=== PATIENT | male | born 1960 | race Caucasian/White ===

== ENCOUNTER 2024-03-07 13:03 | Outpatient (CLI) | payer MEDICARE, MEDICAID, SELFPAY | END 2024-03-07 13:04 | disposition home or self-care (01) | LOC: ANHAUDIO 13:04 | PROVIDERS: PCP Internal Medicine Infectious Disease; Visit Provider Otolaryngology | DX: H90.3 Sensorineural hearing loss, bilateral (principal) | CPT/HCPCS: 92557; 92567 ==

== ENCOUNTER 2024-08-14 13:36 | Emergency (ER) | payer MEDICARE, MEDICAID, SELFPAY ==
--- NOTE | ~2024-08-14 | US_ITS ---
EXAMINATION: US venous doppler UE RT DATE: 08/14/2024 15:49 INDICATION: Right upper limb swelling and erythema TECHNIQUE: Grayscale images without and with compression and Doppler images of the right upper extrem ity veins were obtained. COMPARISON: None. FINDINGS: The right internal jugular vein, subclavian vein, axillary vein, brachial vein, basilic vein, cephali c vein, radial vein, and ulnar vein are patent. IMPRESSION: 1. Patent right upper extremity veins. No evidence of venous thrombosis. Reviewed, dictated and finalized at location A.
[2024-08-14 13:49] VITALS: BP 119/79; PULSE 65; RESP 18; TEMP 36.4; O2SAT 99
--- OUTSIDE RECORDS SUMMARY | 2024-08-14 13:58 | XMS_ITS | CONTINUITY OF CARE DOCUMENT ---
Author Name leslie, leslie Address Unknown Organization [facility] Address [address] [place] [address] Phone [phone] Care Team Providers Care Pm Head Cook Name Role Phone Joe FLOOD, Wei Unavailable AFSANEH FLOOD, EMELYN Unavailable EMELYN SHELBY MD Unavailable [phone] PROBLEMS Condition Status Date Provider Notes SHORTNESS OF BREATH active Tanya Fullerm idt OBESITY active Tanya Stahlschmidt DVT active Tanya Staangelaschmidt CAD active Tanya Brandschmidt Hyperlipidemia active Wei Diaz MD GOUT, CHRONIC active Wei Diaz MD Family History of Hypertension: active ? Antony Diaz MD Family History of Hypertension: active ? Antony Diaz MD Edema, chronic active Wei Diaz MD Sleep apnea, obstructive active Wei rosales MD CHF, systolic, chronic active Wei Diaz MD Diabetes, Type 2 active ? Wei Diaz MD ENCOUNTERS Date Type Provider Location Encounter Diag nosis - In-person encounter Office Visit Wei Diaz MD [facility] - [facility]-person encounter Office Visit Wei Diaz MD [facility] - In-person encounter Office Visit Wei Diaz MD [facility] - In-person encounter Office Visit Wei Diaz MD [facility] - In-person encounter Office Visit Wei Diaz MD [facility] - In-person encounter Office Visit Wei Diaz MD [facility] - In-person encounter Office Visit Wei Diaz MD [facility] - In-person encounter Office Visit Wei Diaz MD [facility] In-person encounter Office Visit Wei Diaz MD [facility] - In-person encounter Office Visit Wei Diaz MD [facility] - In-person encounter Office Visit Wei Diaz MD [facility] HyperlipidemiaDiabet es, Type 2 - In-person encounter Office Visit Wei iDaz MD [facility] - In-person encounter Office Visit Wei Diaz MD [facility] - In-person encounter Office Visit Wei Diaz MD [facility] Edema, chronicSleep apnea, obstructiveCHF, systolic, chronic - In-person encounter Office Visit Wei Diaz MD [facility] Family History of Hypertension:Family History of Hypertension: - In-person encounter Office Visit Wei Diaz MD [facility] - In-person encounter Office Visit Wei Diaz MD [facility] - In-person encounter Office Visit Wei Diaz MD [facility] - In-person encounter Office Visit Wei Diaz MD [facility] - In-person encounter Office Visit Wei Diaz MD [facility] - In-person encounter Office Visit Wei Diaz MD [facility] GOUT, CHRONIC - In-person encounter Office Visit Wei Diaz MD [facility] VITAL SIGNS Date Observation Value Provider Body Mass Index (Ratio) 41.12 kg/m2 Antony Diaz MD pulse rate 73 /min Sophie [place] blood pressure, diastolic 74 mm[Hg] [facility], systolic 124 mm[Hg] Thea liz [place] oxygen saturation, oximetry 98 % [facility] weight E&M 329 [lb_av] [facility] respiratory rate E&M 16 /min [facility] height E&M 75 [in_i] [facility] blood pressure, cuff size large An hiram [place] Body Mass Index (Ratio) 40.74 kg/m2 Antony Diaz MD blood pressure, systolic 127 mm[Hg] [facility], cuff size regular Jeb [facility] blood pressure, diastolic 84 mm[Hg] Jeb [facility] pulse rate 85 /min [facility] oxygen saturation, oximetry 96 % [facility] respiratory rate E&M 14 /min Latrice Parada iller weight E&M 326 [lb_av] [facility] height E&M 75 [in_i] [facility] Body Mass Index (Ratio) 38.49 kg/m2 Tae da Ventimiglia INFORMATION MANAGEMENT SPECIALIST blood pressure, diastolic 74 mm[Hg] Li nkLogic blood pressure, systolic 124 mm[Hg] Emily kLogic blood pressure, cuff size regular Ja rret blood pressure, diastolic 74 mm[Hg] Farooq nesha blood pressure, systolic 124 mm[Hg] Javi daniels pulse rate 92 /min Jett respiratory rate E&M 12 /min oxygen saturation, oximetry 97 % weight E&M 308 [lb_av] Jett y height E&M 75 [in_i] Jett y Body Mass Index (Ratio) 41.24 kg/m2 Antony Diaz MD blood pressure, cuff size large Tr abril blood pressure, diastolic 62 mm[Hg] Tr [facility] blood pressure, systolic 117 mm[Hg] Tra [facility] oxygen saturation, oximetry 97 % [facility] pulse rate 70 /min [facility] weight E&M 330 [lb_av] [facility]&M 75 [in_i] [facility] Body Mass Index (Ratio) 43.49 kg/m2 Antony Diaz MD blood pressure, cuff size large Ke rri Gloria blood pressure, diastolic 72 mm[Hg] Ke rri Ernestouenetiki blood pressure, systolic 120 mm[Hg] Rosalio Blackman oxygen saturation, oximetry 99 % Brisa Blackman respiratory rate E&M 16 /min Brisa nguyen pulse rate 74 /min Brisa Brothers [facility] weight E&M 348 [lb_av] Brisa Brothers [facility] height E&M 75 [in_i] Brisa Drunepradeep Body Mass Index (Ratio) 53.49 kg/m2 Antony Diaz MD blood pressure, cuff size regular Julianna Finley blood pressure, diastolic 71 mm[Hg] Julianna Finley blood pressure, systolic 149 mm[Hg] Leonides Finley oxygen saturation, oximetry 98 % Azeb Finley respiratory rate E&M 18 /min Terri Finley pulse rate 82 /min Azeb aiken weight E&M 428 [lb_av] Azeb aiken height E&M 75 [in_i] Azeb aiken Body Mass Index (Ratio) 57.99 kg/m2 Antony Diaz MD blood pressure, diastolic 70 mm[Hg] Liz nkLogalexa blood pressure, systolic 142 mm[Hg] Emily kLogalexa blood pressure, cuff size regular Cy marco Rubio blood pressure, diastolic 70 mm[Hg] Cy marco Rubio blood pressure, systolic 142 mm[Hg] Harriet Rubio oxygen saturation, oximetry 96 % Gabriela Rubio respiratory rate E&M 16 /min Gabriela Rubio pulse rate 94 /min Gabriela Gaminobel l weight E&M 464 [lb_av] Gabriela Stevensonbel l height E&M 75 [in_i] Gabriela Stevensonbel l Body Mass Index (Ratio) 63.61 kg/m2 Antony Diaz MD blood pressure, cuff size regular Cy marco Rubio blood pressure, diastolic 80 mm[Hg] Cy ntrolanda Ramiro blood pressure, systolic 140 mm[Hg] Harriet uzma Rubio oxygen saturation, oximetry 96 % Gabriela Rubio respiratory rate E&M 18 /min Gabriela Rubio pulse rate 61 /min Gabriela Santos l weight E&M 509 [lb_av] Gabriela Santos l height E&M 75 [in_i] Gabriela Santos l blood pressure, diastolic 70 mm[Hg] Da valente Sadiq blood pressure, systolic 138 mm[Hg] Dac ia Sadiq oxygen saturation, oximetry 94 % Ro Sadiq respiratory rate E&M 24 /min Ro V oss pulse rate 91 /min Ro Sadiq height E&M 75 [in_i] Ro Sadiq blood pressure, cuff size large Ke rri Granishnenfelder blood pressure, diastolic 80 mm[Hg] Ke rri Gruenenfelder blood pressure, systolic 152 mm[Hg] Rosalio ri Hiral oxygen saturation, oximetry 98 % Brisa Hiral respiratory rate E&M 24 /min Brisa nguyen pulse rate 80 /min Brisa Zev lder height E&M 75 [in_i] Brisa Nadinee lder blood pressure, diastolic 79 mm[Hg] Sapphire Dey blood pressure, systolic 140 mm[Hg] Kimberley Dey oxygen saturation, oximetry 94 % Chidi Dey respiratory rate E&M 20 /min Melvi Dey height E&M 75 [in_i] Chidi estes blood pressure, cuff size regular Ke rri Gruenenfelder blood pressure, diastolic 77 mm[Hg] Ke rri Gruenenfelder blood pressure, systolic 150 mm[Hg] Rosalio ri Drunenfjessica oxygen saturation, oximetry 97 % Brisa Radhanfjessica respiratory rate E&M 18 /min Brisa Graff meryyolandaraadharjinder pulse rate 89 /min Brisa Brothers lachoer height E&M 75 [in_i] Brisa Brothers lachoer blood pressure, diastolic 82 mm[Hg] Norm Mccoyjessica blood pressure, systolic 122 mm[Hg] Rosalio Mccoyjessica pulse rate 85 /min Brisa Brothers er oxygen saturation, oximetry 97 % Brisa Mccoyraadharjinder respiratory rate E&M 20 /min Brisa Graff meryyolandajessica blood pressure, diastolic 73 mm[Hg] Sapphire Langford Dey blood pressure, systolic 136 mm[Hg] Kimberley Tejada Dey pulse rate 77 /min Chidi Vega meera oxygen saturation, oximetry 97 % Chidi Dey respiratory rate E&M 20 /min Melvi mak Dey Body Mass Index (Ratio) 67.99 kg/m2 Park Dey weight E&M 544 [lb_av] Chidi Vega meera Body Mass Index (Ratio) 68.61 kg/m2 Anea bethany Vega blood pressure, diastolic 75 mm[Hg] An eatris Gary blood pressure, systolic 123 mm[Hg] Ane atris Gary pulse rate 79 /min Aneatris Brown oxygen saturation, oximetry 97 % Aneatris Gary respiratory rate E&M 20 /min Aneatri s Gary weight E&M 549 [lb_av] Aneatris Gary Body Mass Index (Ratio) 72.26 kg/m2 Madelin Johansen blood pressure, lincoln tolic, second observation 84 mm[Hg] Liz Johansen blood pressure, syst olic, second observation 147 mm[Hg] Liz Johansen blood pressure, diastolic 84 mm[Hg] Na trish Johansen blood pressure, systolic 147 mm[Hg] Maryellen Johansen pulse rate 86 /min Liz Johansen oxygen saturation, oximetry 97 % Liz Johansen respiratory rate E&M 20 /min Liz Johansen weight E&M 576 [lb_av] Liz Eleno blood pressure, diastolic 77 mm[Hg] Farooq Crawley RN blood pressure, systolic 138 mm[Hg] Basim Crawley RN pulse rate 90 /min Basim Crawley RN oxygen saturation, oximetry 98 % Basim Crawley RN respiratory rate E&M 20 /min Basim godwin RN Body Mass Index (Ratio) 68.99 kg/m2 Basim Crawley RN weight E&M 550 [lb_av] Basim Crawley RN height E&M 75 [in_i] Basim Crawley RN blood pressure, diastolic 79 mm[Hg] Lee blood pressure, systolic 109 mm[Hg] Dany Rosales pulse rate 85 /min Desmond Rosales oxygen saturation, oximetry 96 % Desmond Rosales respiratory rate E&M 18 /min Desmond Rosales weight E&M 543 [lb_av] Desmond Rosales oxygen saturation, oximetry 93 % Nhi [place] blood pressure, diastolic 80 mm[Hg] Yasmany [place] blood pressure, systolic 148 mm[Hg] Ema [place] pulse rate 91 /min Nhi Aguirre rn, [place] respiratory rate E&M 18 /min Nhi [place] pulse rate 91 /min Basim Crawley RN blood pressure, diastolic 90 mm[Hg] De melba Rosales blood pressure, systolic 130 mm[Hg] Dany Rosales oxygen saturation, oximetry 98 % Desmond Connie respiratory rate E&M 21 /min Desmond Connie weight E&M 500 [lb_av] Danyjimenez Rosales blood pressure, diastolic 87 mm[Hg] Farooq wilcox Crawley RN blood pressure, systolic 128 mm[Hg] Basim Reyess RN pulse rate 104 /min Basim Reyess RN oxygen saturation, oximetry 96 % Basim Reyess RN respiratory rate E&M 17 /min Basim collinslalito RN weight E&M 505 [lb_av] Basim Reyess RN weight E&M 475 [lb_av] Basim Reyess RN blood pressure, diastolic 60 mm[Hg] Magdalena seph [place] blood pressure, systolic 100 mm[Hg] Shadi eph [place] pulse rate 92 /min Nasim [place] oxygen saturation, oximetry 97 % Nasim [place] respiratory rate E&M 20 /min Nasim [place] ALLERGIES No Known Drug Allergies HISTORY OF MEDICATION USE Medication Status Instructions Dates Provider Indications Com dee lorazepam 0.5 mg tablet completed - 07/25 Ruthie Obando gabapentin 400 mg capsule active Take 1 capsule by mouth three times a day Celena ORO Symbicort 80-4.5 mcg/actuation HFA aerosol inhaler active Inhale 2 puff as directed twice a day Gabriela Rubio Symbicort 80-4.5 mcg/actuation HFA aerosol inhaler completed - 01/24 Brisa Blackman allopurinol 300 mg tablet active Take 1 tablet by mouth twice a day Gabriela Rubio FLONASE SUSPENSION active as needed 10/05 Brisa Blackman bupropion HCl 150 mg tablet sustained-release 12 hr active 1 twice a day 02/09 Wei Diaz MD naltrexone 50 mg tablet completed 1 tablet once a day 02/09 - 02/06 Jett Isabel TURMERIC CAPSULE active once a day Edie Dey metformin 500 mg tablet completed 2 tablet once a day - 07/25 Ruthie Obando SILYMARIN ORAL CAPSULE completed daily - 12/03 Chidi Dey NAPROXEN 500 MG ORAL TABLET completed 1 tab po daily - 12/03 Aneatris Brown COLCRYS 0.6 MG ORAL TABLET completed 1 tab po daily - 12/03 Desmond Rosales amlodipine 5 mg tablet completed 1 tablet by mouth once a day - 07/25 Ruthiesandra Obando Uloric 80 mg tablet completed 1 tablet onc e a day - 07/25 Ruthiesandra Obando lisinopril 10 mg tablet completed Take 1 tablet by mouth once a day 08/10 - 07/25 Ruthie Obando GLIPIZIDE 5 MG ORAL TABLET completed ONCE DAILY 01/12 - 12/03 Nhi [place] Fish Oil 340-1,000 mg capsule completed once a day - 12/21 Chidi Dey VITAMIN D TABLET active 3 once a day 12/04 Brisa Blackman ALLOPURINOL 300 MG ORAL TABLET completed ONE TAB. DAILY - 12/03 Nhi [place] COLCHICINE 0.6 MG ORAL TABLET completed 1 tablet by mouth as needed - 01/11 Basim Crawley RN ZOLPIDEM TARTRATE 10 MG ORAL TABLET completed 1 tablet by mouth as needed - 01/11 Basim Crawley RN KLOR-CON TABLET EXTENDED RELEASE completed 1500mg 1 tablet by mouth daily - 12/03 Aneatrzaida Gary famotidine 20 mg tablet completed 1 tablet by mouth once a day - 07/25 Ruthie Davilajennifer furosemide 40 mg tablet active once a day Chidi Dey Zocor 40 mg tablet completed 1 tablet every night - 12/21 Wei Diaz MD MULTIVITAMINS CAPS active 1 tablet once a day Gabriela Rubio paroxetine HCl 10 mg tablet active Take 1 once a day 10/05 Celena ORO HYDROCHLOROTHIAZIDE 25 MG ORAL TABLET completed ONE TAB DAILY - 12/03 Nasim Hansen ASPIRIN 81 MG ORAL TABLET completed 1 tablet once a day - 07/25 Celena Ventimiglia [facility] QUINAPRIL HCL 40 MG ORAL TABLET completed ONE TAB. 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 alcohol use no [facility] passive cigarette sm norberto exposure no [facility] smoking/tobacco cessation, patient education and counseling contraindicated [facility] smoking status Former smoker [facility] drug use no Celena Ventimig mason [facility] alcohol use no Celena Ventimig mason [facility] smoking status Former smoker Celena Kal miglia [facility] drug use no Celena Ventimig mason [facility] alcohol use no Celena Ventimig mason [facility] smoking status Former smoker Celena Venti miglia [facility] social history E&M Marital Statu s: Single L kae alone E thnicity: Smoking History: P atfred is a former smoker. Wei Diaz MD social history revie wed E&M reviewed - no changes required Wei Diaz MD seatbelt usage 100 % Brisa olmstead caffeine use, averag e drinks per day yes Brisa Blackman passive cigarette sm norberto exposure no Brisa Blackman smoking status Former smoker Brisa chaney social history revie wed E&M reviewed - no changes required Wei Diaz MD social history E&M Marital Statu s: Single L kae alone E thnicity: Smoking History: P atient is a former smoker. Wei Diaz MD social history revie wed E&M reviewed - no changes required Wei Diaz MD seatbelt usage 100 % Gabriela mclean caffeine use, averag e drinks per day yes Gabriela Rubio passive cigarette sm norberto exposure no Gabriela Rubio smoking status Former smoker Gabriela layton social history E&M Marital Statu s: Single L kae alone E thnicity: Smoking History: Beatriz arechiga is a former smoker. Wei Diaz MD social history revie wed E&M reviewed - no changes required Wei Diaz MD seatbelt usage 100 % Gabrielauzma mclean alcohol use, average drinks per day none Gabriela Ramiro alcohol use no Gabriela Gaminojaylon chapman caffeine use, averag e drinks per day yes Gabriela Ramiro drug use none Gabriela Gaminojaylon chapman passive cigarette sm norberto exposure no Gabriela Rubio smoking status Former smoker Gabriela layton social history E&M Marital Statu s: Single L kae alone E thnicity: Smoking History: Beatriz arechiga is a former smoker. Wei Diaz MD social history revie wed E&M reviewed - no changes required Wei Diaz MD seatbelt usage 100 % Ro Sadiq alcohol use, average drinks per day none Ro Sadiq alcohol use no Ro Sadiq caffeine use, averag e drinks per day yes Ro Sadiq drug use none Ro Sadiq passive cigarette sm norberto exposure no Ro Sadiq smoking status Former smoker Ro Sadiq social history E&M Marital Statu s: Single L kae alone E thnicity: Smoking History: Beatriz arechiga is a former smoker. Wei Diaz MD social history revie wed E&M reviewed - no changes required Wei Diaz MD seatbelt usage 100 % Brisa olmstead alcohol use, average drinks per day none Brisa Hiral alcohol use no Brisa Zev monker caffeine use, averag e drinks per day yes Brisa Hiral drug use none Brisa Zev lder passive cigarette sm norberto exposure no Brisa Hiral smoking status Former smoker Brisajuan luis chaney social history E&M Marital Statu s: Single L kae alone E thnicity: Smoking History: Beatriz arechiga is a former smoker. Wei Diaz MD social history revie wed E&M reviewed - no changes required Wei Diaz MD seatbelt usage 100 % Chidi Turner alcohol use, average drinks per day none Chidi Dey alcohol use no Chidi Vega nsjuana caffeine use, averag e drinks per day yes Chidi Dey drug use none Chidi Vega nson passive cigarette sm norberto exposure no Chidi Dey smoking status Former smoker Chidi Olson social history revie wed E&M reviewed - no changes required Wei Diaz MD seatbelt usage 100 % Brisa olmstead alcohol use, average drinks per day none Brisa Blackman alcohol use no Brisa monker caffeine use, averag e drinks per day yes Brisa Blackman drug use none Brisa monker passive cigarette sm norberto exposure no Brisa Blackman smoking status Former smoker Brisa chaney social history revie wed E&M reviewed - no changes required Wei Diaz MD alcohol use no Brisa Brothers amber smoking status Former smoker Brisa Garcia shiv social history revie wed E&M reviewed - no changes required Wei Diaz MD seatbelt usage 100 % Chidi Barron jm alcohol use, average drinks per day none Chidi Dey alcohol use no Chidi Vega alinajuana caffeine use, averag e drinks per day yes Chidijeri Dey drug use none Chidi Vega meera passive cigarette sm norberto exposure no ChidiPaulette Dey smoking status Former smoker Chidi Vidal samuel smoking/tobacco cessation, patient education and counseling No Wei Diaz MD social history revie wed E&M reviewed - no changes required Wei Diaz MD smoking status Former smoker Zeynep Robin pfeiffer drug use none Wei Shepherd social history revie wed E&M reviewed Wei Diaz MD seatbelt usage 100 % Wei Diaz MD drug use no Wei Shepherd passive cigarette sm norberto exposure no Basim Crawley RN smoking history, tot al pack/year 14 Basim Crawley RN smoking, year quit 1986 Basim starkey RN social history revie wed E&M reviewed Basim Crawley RN smoking status former smoker Basim Wilcox social history revie wed E&M reviewed Basim Crawley RN social history revie wed E&M reviewed Wei Diaz MD social history revie wed E&M reviewed Basim Crawley RN social history revie wed E&M reviewed Basim Crawley RN drug use none Wei Shepherd social history E&M Marital Statu s: Single L kae alone E thnicity: Basim Crawley RN social history revie wed E&M reviewed Basim Crawley RN caffeine use, averag e drinks per day yes LinkLog alcohol use, average drinks per day none LinkLogic number of years as a smoker less than 10 years LinkLogic smoking status Quit LinkLog FUNCTIONAL STATUS Date Observation Value Provider HRA, CV Assess/Plan, Angina (inactive) Management Plan continue current therapy Kristen Neal HRA, CV Assess/Plan, Angina (inactive) Management Plan continue current therapy Celena Kaltishcarroll INFORMATION MANAGEMENT SPECIALIST HRA, CV Assess/Plan, Angina (inactive) Management Plan continue current therapy Wei Diaz MD HRA, CV Assess/Plan, Angina (inactive) Management Plan continue current therapy Wei Diaz MD HRA, CV Assess/Plan, Angina (inactive) Management Plan continue current therapy Wei Diaz MD HRA, CV Assess/Plan, Angina (inactive) Management Plan continue current therapy Wei Diaz MD HRA, CV Assess/Plan, Angina (inactive) Management Plan continue current therapy Wei Diaz MD HRA, CV Assess/Plan, Angina (inactive) Management Plan continue current therapy Wei Diaz MD HRA, CV Assess/Plan, Angina (inactive) Management Plan continue current therapy Wei Diaz MD MENTAL STATUS Date Observation Value Provider assessment of judgme nt and insight E&M Alert and oriented to time, place and person. Mood and affect are normal. Wei Diaz MD assessment of judgme nt and insight E&M Alert and oriented to time, place and person. Mood and affect are normal. Basim Crawley RN assessment of judgme nt and insight E&M Alert and oriented to time, place and person. Mood and affect are normal. Basim Crawley RN assessment of judgme nt and insight E&M Alert and oriented to time, place and person. Mood and affect are normal. Wei Diaz MD assessment of judgme nt and insight E&M Alert and oriented to time, place and person. Mood and affect are normal. Basim Crawley RN assessment of judgme nt and insight E&M Alert and oriented to time, place and person. Mood and affect are normal. Basim Crawley RN assessment of judgme nt and insight E&M Alert and oriented to time, place and person. Mood and affect are normal. Basim Crawley RN FAMILY HISTORY Family Member Condition Father Family History of Co ronary Artery Disease: Father Family History of Hy pertension: Father Family History of Di abetes: Mother Family History of Co ronary Artery Disease: Mother Family History of Hy pertension: Mother Family History of Di abetes: INSURANCE PROVIDERS Payer name Policy type / Coverage type Lipscomb red green party ID [id number] (PPO C-SNP) Commercial insurance company [id number] [facility] Medicaid 1 [id number] ADVANCE DIRECTIVES Name Date DISCUSSED - NO DECISION MADE TREATMENT PLAN Date Name Performer [id number],B,L ast echo showed improvement in EF to 65% R emains asymptomtatic [facility] [id number],B,C ontinues to have weight loss post gastric bypass. Down another 22lbs [facility] [id number],S,T he patient is using CPAP on a regular basis. The patient has been benefiting from therapy and should continue use. [facility] [id number],S,w ill update lipids O rders: 9 9214 MOD 30-39min (CPT-75377) C OMPREHENSIVE METABOLIC PANEL, W/EGFR (46584) L IPID PANEL (7600) T SH, free T4, total T3 (7444) C BC (INCLUDES DIFF/PLT) (6399) [facility] [id number],S,B P 124/74 W ell controlled C ontinue present medication H is updated medication list for this problem includes: Furosemide 40 Mg Tablet (Furosemide) ..... Once a day [facility] [id number],C,H as lost 240lbs post bariatric surgery [facility] [id number],C,will get upda kevin labs [facility] [id number],C,N o chest pain or SOB. Off asa post bariatric surgery T he following medications were removed from the medication list: Amlodipine 5 Mg Tablet (Amlodipine) ..... 1 tablet by mouth once a day Lisinopril 10 Mg Tablet (Lisinopril) ..... Take 1 tablet by mouth once a day [facility] [id number],C,b lood pressure 117/62 well controlled T he following medications were removed from the medication list: Amlodipine 5 Mg Tablet (Amlodipine) ..... 1 tablet by mouth once a day Lisinopril 10 Mg Tablet (Lisinopril) ..... Take 1 tablet by mouth once a day His updated medication list for this problem includes: Furosemide 40 Mg Tablet (Furosemide) ..... Once a day [facility] [id number],C,L ast echo showed EF of 65%. He is currently compensated [facility] [id number],S, Wei wilcox MD [id number],S, Wei wilcox MD [id number],B, Wei wilcox MD [id number],S, Wei wilcox MD [id number],B, Wei wilcox MD [id number],B,S/P bariatric surgery. Wei Diaz MD [id number],S, Wei wilcox MD [id number],S,Scheduled for bariatric surgery Wei Diaz MD [id number],S, Wei wilcox MD [id number],S, Wei wilcox MD [id number],S, Wei wilcox MD [id number],S, Wei wilcox MD [id number],S, Wei wilcox MD [id number],S, Wei wilcox MD [id number],C,T he patient is using CPAP on a regular basis. The patient has been benefiting from therapy and should continue use. Wei Diaz MD [id number],S, Wei wilcox MD [id number],S, Wei wilcox MD Cardiology:Managed per PCP Kimberly Garcia NP Cardiology:Luzmariale d H is updated medication list for this problem includes: Furosemide 40 Mg Tablet (Furosemide) ..... Once a day Stephanie Garcia NP Cardiology:Patient c ontinues to lose wieght following bariatric surgery. Stephanie Garcia NP Cardiology:Echo 2016 with EF of 65% and diastolic dysfunction. Will check echo with next visit in 6 months. Stephanie Garcia NP Cardiology Wei Diaz MD Cardiology Wei Diaz MD Cardiology Wei Diaz MD Cardiology Wei Diaz MD Cardiology Wei Diaz MD Cardiology:Last echo showed improvement in EF to 65% R emains asymptomtatic Celena Ventimiglia INFORMATION MANAGEMENT SPECIALIST Cardiology:Continues to have weight loss post gastric bypass. Down another 22lbs Celena Ventimiglia INFORMATION MANAGEMENT SPECIALIST Cardiology:The patie nt is using CPAP on a regular basis. The patient has been benefiting from therapy and should continue use. [facility] Cardiology:will upda te lipids O rders: 9 9214 MOD 30-39min (CPT-10666) C OMPREHENSIVE METABOLIC PANEL, W/EGFR (72745) L IPID PANEL (7600) T SH, free T4, total T3 (7444) C BC (INCLUDES DIFF/PLT) (6399) [facility] Cardiology:BP 124/74 W ell controlled C ontinue present medication H is updated medication list for this problem includes: Furosemide 40 Mg Tablet (Furosemide) ..... Once a day [facility] Cardiology:Has lost 240lbs post bariatric surgery [facility] Cardiology:will get updated labs [facility] Cardiology:No chest pain or SOB. Off asa post bariatric surgery T he following medications were removed from the medication list: Amlodipine 5 Mg Tablet (Amlodipine) ..... 1 tablet by mouth once a day Lisinopril 10 Mg Tablet (Lisinopril) ..... Take 1 tablet by mouth once a day [facility] Cardiology:blood pre ssure 117/62 well controlled T he following medications were removed from the medication list: Amlodipine 5 Mg Tablet (Amlodipine) ..... 1 tablet by mouth once a day Lisinopril 10 Mg Tablet (Lisinopril) ..... Take 1 tablet by mouth once a day His updated medication list for this problem includes: Furosemide 40 Mg Tablet (Furosemide) ..... Once a day [facility] Cardiology:Last echo showed EF of 65%. He is currently compensated [facility] Cardiology Wei Diaz MD Cardiology Wei Diaz MD Cardiology Wei Diaz MD Cardiology Wei Diaz MD Cardiology Wei Diaz MD Cardiology:S/P bariatric surgery . Wei Diaz MD Cardiology Wei Diaz MD Cardiology:Scheduled for bariatr ic surgery Wei Diaz MD Cardiology Wei Diaz MD Cardiology Wei Diaz MD Cardiology Wei Diaz MD Cardiology follow up Wei rosales MD Cardiology follow up Wei rosales MD Cardiology follow up Wei rosales MD Cardiology follow up :The patient is using CPAP on a regular basis. The patient has been benefiting from therapy and should continue use. Wei Diaz MD Cardiology follow up Wei rosales MD Cardiology follow up Wei rosales MD Cardiology follow up Wei rosales MD Cardiology follow up Wei rosales MD Cardiology follow up Wei rosales MD Cardiology follow up Wei rosales MD Cardiology follow up Wei rosales MD Cardiology follow up Wei rosales MD Cardiology follow up Wei rosales MD Cardiology follow up Wei rosales MD Cardiology follow up Wei rosales MD Cardiology follow up Wei rosales MD Cardiology follow up Wei rosales MD Cardiology follow up Wei rosales MD Cardiology Follow up Wei rosales MD Cardiology Follow up Wei rosales MD Cardiology Follow up Wei rosales MD Cardiology Follow up Wei rosales MD Cardiology Follow up Wei rosales MD Cardiology Follow up Wei rosales MD Cardiology Follow up Wei rosales MD Cardiology Wei Diaz MD Cardiology Wei Diaz MD Cardiology Wei Diaz MD Cardiology Wei Diaz MD Cardiology Wei Diaz MD Cardiology Wei Diaz MD Cardiology Follow up Wei rosales MD Cardiology Follow up Wei rosales MD Cardiology Follow up Wei rosales MD Cardiology Follow up Wei rosales MD Cardiology Follow up Wei rosales MD Cardiology Follow up Wei rosales MD Cardiology Follow up Wei rosales MD Cardiology Follow up Wei rosales MD Cardiology Follow up Wei rosales MD Cardiology Follow up Wei rosales MD Cardiology Follow up Wei rosales MD Cardiology Follow up Wei rosales MD Cardiology Wei Diaz MD Cardiology Wei Diaz MD Cardiology Wei Diaz MD Cardiology:Continue current meds. N eeds hospital bed to allow for head to be elevated at least 30 degrees to improve ventilation/breathing at night. Wei Diaz MD Cardiology:Needs to have hospital bed for elevation of head of bed to allow him to breathe due to his sleep apnea and morbid obesity with associated CHF. Wei Diaz MD Cardiology:Nearly de bilitating. Needs hospital bed for altering elevation of feet. Wei Diaz MD follow up: T he following medications were removed from the medication list: Klor-con Tbcr (Potassium chloride tbcr) ..... 1500mg 1 tablet by mouth daily His updated medication list for this problem includes: Aspirin 81 Mg Tabs (Aspirin) ..... One tab. daily Furosemide 40 Mg Tabs (Furosemide) Lisinopril 10 Mg Tabs (Lisinopril) ..... Once daily Amlodipine Besylate 5 Mg Tabs (Amlodipine besylate) ..... 1 tab po daily Wei Diaz MD follow up Wei Diaz MD follow up Wei Diaz MD follow up Wei Diaz MD follow up: H is updated medication list for this problem includes: Aspirin 81 Mg Tabs (Aspirin) ..... One tab. daily Furosemide 40 Mg Tabs (Furosemide) Lisinopril 10 Mg Tabs (Lisinopril) ..... Once daily Amlodipine Besylate 5 Mg Tabs (Amlodipine besylate) ..... 1 tab po daily Orders: E KG (CPT-34352) Wei Diaz MD follow up Wei Diaz MD follow up : H is updated medication list for this problem includes: Aspirin 81 Mg Tabs (Aspirin) ..... One tab. daily Furosemide 20 Mg Tabs (Furosemide) ..... Daily Lisinopril 10 Mg Tabs (Lisinopril) ..... Once daily Amlodipine Besylate 5 Mg Tabs (Amlodipine besylate) ..... 1 tab po daily Wei Diaz MD follow up : H is updated medication list for this problem includes: Zocor 40 Mg Tabs (Simvastatin) ..... One tab. at bedtime Wei Diaz MD follow up : H is updated medication list for this problem includes: Aspirin 81 Mg Tabs (Aspirin) ..... One tab. daily Furosemide 20 Mg Tabs (Furosemide) ..... Daily Klor-con Tbcr (Potassium chloride tbcr) ..... 1500mg 1 tablet by mouth daily Lisinopril 10 Mg Tabs (Lisinopril) ..... Once daily Amlodipine Besylate 5 Mg Tabs (Amlodipine besylate) ..... 1 tab po daily Wei Diaz MD follow up : H is updated medication list for this problem includes: Uloric 40 Mg Tabs (Febuxostat) ..... 1/2 tab po daily Wei Diaz MD follow up : H is updated medication list for this problem includes: Aspirin 81 Mg Tabs (Aspirin) ..... One tab. daily Zocor 40 Mg Tabs (Simvastatin) ..... One tab. at bedtime Lisinopril 10 Mg Tabs (Lisinopril) ..... Once daily Amlodipine Besylate 5 Mg Tabs (Amlodipine besylate) ..... 1 tab po daily Wei iDaz MD : H is updated medication list for this problem includes: Aspirin 81 Mg Tabs (Aspirin) ..... One tab. daily Zocor 40 Mg Tabs (Simvastatin) ..... One tab. at bedtime Lisinopril 10 Mg Tabs (Lisinopril) ..... Once daily Amlodipine Besylate 5 Mg Tabs (Amlodipine besylate) ..... 1 tab po daily BP today: 138/77 Prior BP: 109/79 (07/11/2011) Wei Diaz MD : H is updated medication list for this problem includes: Aspirin 81 Mg Tabs (Aspirin) ..... One tab. daily Furosemide 20 Mg Tabs (Furosemide) ..... Daily Lisinopril 10 Mg Tabs (Lisinopril) ..... Once daily Amlodipine Besylate 5 Mg Tabs (Amlodipine besylate) ..... 1 tab po daily BP today: 138/77 P rior BP: 109/79 (07/11/2011) Wei Diaz MD : H is updated medication list for this problem includes: Zocor 40 Mg Tabs (Simvastatin) ..... One tab. at bedtime BP today: 138/77 Prior BP: 109/79 (07/11/2011) Wei Diaz MD : H is updated medication list for this problem includes: Aspirin 81 Mg Tabs (Aspirin) ..... One tab. daily Furosemide 20 Mg Tabs (Furosemide) ..... Daily Klor-con Tbcr (Potassium chloride tbcr) ..... 1500mg 1 tablet by mouth daily Lisinopril 10 Mg Tabs (Lisinopril) ..... Once daily Amlodipine Besylate 5 Mg Tabs (Amlodipine besylate) ..... 1 tab po daily BP today: 138/77 Prior BP: 109/79 (07/11/2011) Wei Diaz MD : H is updated medication list for this problem includes: Uloric 40 Mg Tabs (Febuxostat) ..... 1/2 tab po daily Wei Diaz MD follow up: H is updated medication list for this problem includes: Aspirin 81 Mg Tabs (Aspirin) ..... One tab. daily Zocor 40 Mg Tabs (Simvastatin) ..... One tab. at bedtime Lisinopril 10 Mg Tabs (Lisinopril) ..... Once daily Amlodipine Besylate 5 Mg Tabs (Amlodipine besylate) ..... 1 tab po daily BP today: 109/79 Prior BP: 148/80 (01/17/2011) Wei Diaz MD follow up: H is updated medication list for this problem includes: Aspirin 81 Mg Tabs (Aspirin) ..... One tab. daily Furosemide 20 Mg Tabs (Furosemide) ..... Daily Lisinopril 10 Mg Tabs (Lisinopril) ..... Once daily Amlodipine Besylate 5 Mg Tabs (Amlodipine besylate) ..... 1 tab po daily BP today: 109/79 P rior BP: 148/80 (01/17/2011) Wei Diaz MD follow up: H is updated medication list for this problem includes: Zocor 40 Mg Tabs (Simvastatin) ..... One tab. at bedtime BP today: 109/79 Prior BP: 148/80 (01/17/2011) Wei Diaz MD follow up: H is updated medication list for this problem includes: Aspirin 81 Mg Tabs (Aspirin) ..... One tab. daily Furosemide 20 Mg Tabs (Furosemide) ..... Daily Klor-con Tbcr (Potassium chloride tbcr) ..... 1500mg 1 tablet by mouth daily Lisinopril 10 Mg Tabs (Lisinopril) ..... Once daily Amlodipine Besylate 5 Mg Tabs (Amlodipine besylate) ..... 1 tab po daily & #13;BP today: 109/79 Prior BP: 148/80 (01/17/2011) E chocardiogram: Normal LV size. Normal LV wall thickness. Grossly normal LV systolic function due to poor acoustic windows. EF 55%. Mild LV diastolic dysfunction Normal E/E` = 5.7. No significant valvular abnormalities seen. [facility] (10/06/2008) Wei Diaz MD follow up: T he following medications were removed from the medication list: Quinapril Hcl 40 Mg Tabs (Quinapril hcl) ..... One tab. daily His updated medication list for this problem includes: Aspirin 81 Mg Tabs (Aspirin) ..... One tab. daily Furosemide 20 Mg Tabs (Furosemide) ..... Daily Lisinopril 10 Mg Tabs (Lisinopril) ..... Once daily Amlodipine Besylate 5 Mg Tabs (Amlodipine besylate) ..... 1 tab po daily BP today: 148/80 P rior BP: 130/90 (07/12/2010) Wei Diaz MD follow up: H is updated medication list for this problem includes: Zocor 40 Mg Tabs (Simvastatin) ..... One tab. at bedtime BP today: 148/80 Prior BP: 130/90 (07/12/2010) Wei Diaz MD follow up: T he following medications were removed from the medication list: Quinapril Hcl 40 Mg Tabs (Quinapril hcl) ..... One tab. daily His updated medication list for this problem includes: Aspirin 81 Mg Tabs (Aspirin) ..... One tab. daily Furosemide 20 Mg Tabs (Furosemide) ..... Daily Klor-con Tbcr (Potassium chloride tbcr) ..... 1500mg 1 tablet by mouth daily Lisinopril 10 Mg Tabs (Lisinopril) ..... Once daily Amlodipine Besylate 5 Mg Tabs (Amlodipine besylate) ..... 1 tab po daily BP today: 148/80 Prior BP: 130/90 (07/12/2010) E chocardiogram: Normal LV size. Normal LV wall thickness. Grossly normal LV systolic function due to poor acoustic windows. EF 55%. Mild LV diastolic dysfunction Normal E/E` = 5.7. No significant valvular abnormalities seen. [facility] (10/06/2008) Wei Diaz MD follow up: T he following medications were removed from the medication list: Allopurinol 300 Mg Tabs (Allopurinol) ..... One tab. daily His updated medication list for this problem includes: Uloric 40 Mg Tabs (Febuxostat) ..... 1/2 tab po daily Colcrys 0.6 Mg Tabs (Colchicine) ..... 1 tab po daily Wei Diaz MD follow up: T he following medications were removed from the medication list: Quinapril Hcl 40 Mg Tabs (Quinapril hcl) ..... One tab. daily His updated medication list for this problem includes: Aspirin 81 Mg Tabs (Aspirin) ..... One tab. daily Zocor 40 Mg Tabs (Simvastatin) ..... One tab. at bedtime Lisinopril 10 Mg Tabs (Lisinopril) ..... Once daily Amlodipine Besylate 5 Mg Tabs (Amlodipine besylate) ..... 1 tab po daily Wei Diaz MD follow up: H is updated medication list for this problem includes: Quinapril Hcl 40 Mg Tabs (Quinapril hcl) ..... One tab. daily Aspirin 81 Mg Tabs (Aspirin) ..... One tab. daily Zocor 40 Mg Tabs (Simvastatin) ..... One tab. at bedtime Lisinopril 10 Mg Tabs (Lisinopril) ..... Once daily BP today: 130/90 Prior BP: 128/87 (01/11/2010) Wei Diaz MD follow up: H is updated medication list for this problem includes: Quinapril Hcl 40 Mg Tabs (Quinapril hcl) ..... One tab. daily Aspirin 81 Mg Tabs (Aspirin) ..... One tab. daily Furosemide 20 Mg Tabs (Furosemide) ..... Daily Lisinopril 10 Mg Tabs (Lisinopril) ..... Once daily BP today: 130/90 P rior BP: 128/87 (01/11/2010) Wei Diaz MD follow up: H is updated medication list for this problem includes: Zocor 40 Mg Tabs (Simvastatin) ..... One tab. at bedtime BP today: 130/90 Prior BP: 128/87 (01/11/2010) Wei Diaz MD follow up: H is updated medication list for this problem includes: Quinapril Hcl 40 Mg Tabs (Quinapril hcl) ..... One tab. daily Aspirin 81 Mg Tabs (Aspirin) ..... One tab. daily Furosemide 20 Mg Tabs (Furosemide) ..... Daily Klor-con Tbcr (Potassium chloride tbcr) ..... 1500mg 1 tablet by mouth daily Lisinopril 10 Mg Tabs (Lisinopril) ..... Once daily Orders: EKG (CPT-60673) BP today: 130/90 Prior BP: 128/87 (01/11/2010) E chocardiogram: Normal LV size. Normal LV wall thickness. Grossly normal LV systolic function due to poor acoustic windows. EF 55%. Mild LV diastolic dysfunction Normal E/E` = 5.7. No significant valvular abnormalities seen. [facility] (10/06/2008) Wei Diaz MD routine : H is updated medication list for this problem includes: Quinapril Hcl 40 Mg Tabs (Quinapril hcl) ..... One tab. daily Aspirin 81 Mg Tabs (Aspirin) ..... One tab. daily Zocor 40 Mg Tabs (Simvastatin) ..... One tab. at bedtime BP today: 128/87 Prior BP: 100/60 (10/06/2008) Wei Diaz MD routine : H is updated medication list for this problem includes: Quinapril Hcl 40 Mg Tabs (Quinapril hcl) ..... One tab. daily Aspirin 81 Mg Tabs (Aspirin) ..... One tab. daily Furosemide 20 Mg Tabs (Furosemide) ..... Daily BP today: 128/87 P rior BP: 100/60 (10/06/2008) Wei Diaz MD routine : H is updated medication list for this problem includes: Zocor 40 Mg Tabs (Simvastatin) ..... One tab. at bedtime BP today: 128/87 Prior BP: 100/60 (10/06/2008) Wei Diaz MD routine : H is updated medication list for this problem includes: Quinapril Hcl 40 Mg Tabs (Quinapril hcl) ..... One tab. daily Aspirin 81 Mg Tabs (Aspirin) ..... One tab. daily Furosemide 20 Mg Tabs (Furosemide) ..... Daily Klor-con Tbcr (Potassium chloride tbcr) ..... 1500mg 1 tablet by mouth daily BP today: 128/87 Prior BP: 100/60 (10/06/2008) E chocardiogram: Normal LV size. Normal LV wall thickness. Grossly normal LV systolic function due to poor acoustic windows. EF 55%. Mild LV diastolic dysfunction Normal E/E` = 5.7. No significant valvular abnormalities seen. [facility] (10/06/2008) Wei Diaz MD routine visit with E cho-letter fxd: H is updated medication list for this problem includes: Quinapril Hcl 40 Mg Tabs (Quinapril hcl) ..... One tab. daily Aspirin 81 Mg Tabs (Aspirin) ..... One tab. daily Zocor 40 Mg Tabs (Simvastatin) ..... One tab. at bedtime BP today: 100/60 Prior BP: / () Orders: E KG (CPT-60735) Wei Diaz MD routine visit with E cho-letter fxd: T he following medications were removed from the medication list: Hydrochlorothiazide 25 Mg Tabs (Hydrochlorothiazide) ..... One tab daily His updated medication list for this problem includes: Quinapril Hcl 40 Mg Tabs (Quinapril hcl) ..... One tab. daily Aspirin 81 Mg Tabs (Aspirin) ..... One tab. daily Furosemide 80 Mg Tabs (Furosemide) ..... 1 tablet by mouth daily BP today: 100/60 Wei Diaz MD routine visit with E cho-letter fxd: H is updated medication list for this problem includes: Zocor 40 Mg Tabs (Simvastatin) ..... One tab. at bedtime BP today: 100/60 Prior BP: / () Wei Diaz MD routine visit with E irene-clau fxd: T he following medications were removed from the medication list: Hydrochlorothiazide 25 Mg Tabs (Hydrochlorothiazide) ..... One tab daily His updated medication list for this problem includes: Quinapril Hcl 40 Mg Tabs (Quinapril hcl) ..... One tab. daily Aspirin 81 Mg Tabs (Aspirin) ..... One tab. daily Furosemide 80 Mg Tabs (Furosemide) ..... 1 tablet by mouth daily Klor-con Tbcr (Potassium chloride tbcr) ..... 1500mg 1 tablet by mouth daily BP today: 100/60 Prior BP: / () E chocardiogram: EF - 50-55%. L VH. D ilated LV. D iastolic dysfunction. D ilated aortic root at 4.1cm. [facility] (01/08/2007) Wei Diaz MD Date Name CBC (INCLUDES DIFF/P LT) TSH, free T4, total T3 LIPID PANEL COMPREHENSIVE METABO LIC PANEL, W/EGFR Complete Echo HISTORY OF PROCEDURES Procedure Date Procedure Name Provider Procedure Notes S tatus EKG Wei Diaz MD complete d EKG Wei Diaz MD complete d EKG Wei Diaz MD complete d EKG Chidi Dey compl eted SNOMED-CT: [id number] Current Medications Documented Chidi Dey completed SNOMED-CT: [id number] Current Medications Documented Wei Diaz MD completed SNOMED-CT: [id number] Current Medications Documented Wei Diaz MD completed EKG Wei Diaz MD complete d EKG Wei Diaz MD complete d EKG Wei Diaz MD complete d
--- OUTSIDE RECORDS SUMMARY | 2024-08-14 13:59 | XMS_ITS | Clinical Summary ---
Author Organization [place] [id number] [facility] Address [id number] [place] [address] Care Team Providers Care Salt Manager Name Role Phone Alanna Edward MD Primary Care Provider Allergies No known active allergies Medications multivitamin tabletIndications: Vitamin Deficiency Prevention Take 1 tablet by mouth 2 (two) times a day 60 tablet 5 2 Active oxyCODONE (ROXICODONE) 5 mg immediate release tabletIndications: Pain Take 1 tablet (5 mg total) by mouth every 6 (six) hours as needed for pain May space to every 8 hours as tolerated. Please discard unused medication as instructed. Do not take with naltrexone 10 tablet 2 Active albuterol HFA (PROVENTIL HFA,VENTOLIN HFA,PROAIR HFA) 90 mcg/actuation inhaler Inhale 2 puffs 2 Active ofloxacin (FLOXIN) 0.3 % otic solution INSTILL 10 DROPS INTO AFFECTED EAR(S) TWICE DAILY DIRECTED FOR 10 DAYS 2 Active allopurinoL (ZYLOPRIM) 300 mg tablet 2 tablet DAILY (route: oral) 2 Active calcium citrate malate-vit D3 250 mg-2.5 mcg (100 unit) tablet 2 tablet 3 TIMES DAILY (route: oral) 2 Active buPROPion SR (WELLBUTRIN SR) 150 mg 12 hr tablet 1 tablet 2 TIMES DAILY (route: oral) 2 Active cyclobenzaprine (FLEXERIL) 10 mg tablet 1 tablet NEEDED (route: oral) 2 Active docusate sodium (DOK) 100 mg tablet 1 tablet 2 TIMES DAILY (route: oral) 2 Active fluticasone propionate (FLONASE) 50 mcg/actuation nasal spray 1 spray DAILY (route: nasal) 2 Active docosahexaenoic acid-epa (Fish OiL) 120-180 mg capsule 1 capsule DAILY (route: oral) 2 Active furosemide (LASIX) 40 mg tablet 1 tablet DAILY (route: oral) 2 Active polyethylene glycol (Miralax) 17 gram/dose powder 17 gram NEEDED (route: oral) 2 Active naltrexone (DEPADE) 50 mg tablet 1 tablet DAILY (route: oral) 2 Active ondansetron ODT (ZOFRAN-ODT) 4 mg disintegrating tablet 1 tablet NEEDED (route: oral) 2 Active simvastatin (ZOCOR) 40 mg tablet 1 tablet BEDTIME (route: oral) 2 Active turmeric-turmeric root extract 450-50 mg capsule 1 tablet DAILY (route: BY MOUTH) 2 Active cholecalciferol (cholecalciferol) 25 mcg (1,000 unit) tablet 1 tablet DAILY (route: oral) 2 Active LORazepam (ATIVAN) 0.5 mg tablet 2 2 Active finasteride (PROSCAR) 5 mg tablet 3 Active Procto-Med HC 2.5 % rectal cream 3 Active naproxen (NAPROSYN) 500 mg tablet Take 500 mg by mouth 3 Active tamsulosin (FLOMAX) 0.4 mg extended release capsule tamsulosin 0.4 mg capsule Active PARoxetine (PAXIL) 10 mg tablet 3 Active rivaroxaban (Xarelto) 15 mg tablet Xarelto 15 mg tablet TAKE 1 TABLET BY MOUTH ONCE DAILY WITH FOOD Active cyanocobalamin (vitamin B-12) 500 mcg tabletIndications: Prevention of Vitamin B12 Deficiency Take 1 tablet (500 mcg total) by mouth daily 30 tablet 11 4 05/31/2 025 Active Symbicort 160-4.5 mcg/actuation inhaler INHALE 2 PUFFS BY MOUTH TWICE DAILY DIRECTED FOR 30 DAYS 4 Active nortriptyline (PAMELOR) 10 mg capsule TAKE 1 CAPSULE BY MOUTH ONCE DAILY IN THE EVENING Active polyethylene glycol 236-22.74-6.74 -5.86 gram solution as directed 4 Active gabapentin (NEURONTIN) 400 mg capsule Take 1 capsule (400 mg total) by mouth 3 (three) times a day 4 Active topiramate (TOPAMAX) 100 mg tablet Take 1 tablet (100 mg total) by mouth Active Active Problems Problem Noted Date Diagnosed Date Status post bariatric surgery 06/27/2022 Umbilical hernia without obstruction and without gangrene 07/22/2021 Overview (07/22/2021): Added automatically from request for surgery [id number] Essential hypertension 03/09/2021 Mixed hyperlipidemia 03/09/2021 Arthralgia 03/09/2021 Type 2 diabetes mellitus wit h hyperglycemia, with long-term current use of insulin 03/09/2021 Morbid obesity (CMS/HCC) 06/14/2020 Foreign body in ear 01/08/2017 Impacted cerumen 01/08/2017 Hearing loss 01/08/2017 Encounters Date Type Department Care Team Description 06/27/2024 11:30 AM TENNIS RACKET REPAIRER Clinical Support [facility] [address] Morbid obesity (HCC) (Primary Dx); BMI 40.0-44.9, adult (HCC); Other specified intestinal malabsorption; Bariatric surgery status from Last 3 Months Surgical History Surgery Date Site/Laterality Comments INGUINAL HERNIA REPAIR CATARACT EXTRACTION, BILATERAL Medical History Medical History Date Comments Anxiety disorder Anxiety - (Adde d by TW Conv) Personal history of other di seases of the nervous system and sense organs History of catarac t - (Added by TW Conv) Personal history of other me ntal and behavioral disorders History of depression - (Add ed by TW Conv) Personal history of other en docrine, nutritional and metabolic disease History of diabetes mellitus - (Added by TW Conv) Personal history of other me ntal and behavioral disorders History of eating disorder - (Added by TW Conv) Personal history of other di seases of the circulatory system History of hypertension - (A dded by TW Conv) Personal history of other di seases of urinary system History of kidney disease - (Added by TW Conv) Personal history of other di seases of the digestive system History of gastroesophageal reflux (GERD) - (Added by TW Conv) Arthritis Depression Type 2 diabetes mellitus (HCC) Hypertension Sleep apnea Morbid obesity (HCC) PVD (peripheral vascular disease) CHF (congestive heart failure) (HCC) Deep vein thrombosis (HCC) Family History Medical History Relation Name Comments Diabetes Father Family history of diabetes mellitus - (Added by TW Conv) Heart disease Father Hypertension Father Obesity Father Stroke Father Cancer Mother Diabetes Mother Family history of diabetes mellitus - (Added by TW Conv) Hypertension Mother Obesity Mother Relation Name Status Comments Father Mother Social History Tobacco Use Types Packs/Day Years Used Date Smoking Tobacco: Former Cigarettes 2 8 0 07/28/1977 - 07/28/1985 Smokeless Tobacco: Never Alcohol Use Standard Drinks/Week Comments Not Currently 0 (1 standard drink = 0.6 oz pur e alcohol) AUDIT-C Answer Date Recorded Q1: How often do you have a drink containing alc ohol? Never 07/28/2021 Average Number of Drinks Not on file 022 Q3: How often do you have si x or more drinks on one occasion? Never 07/28/2021 Sex and Gender Information Value Date Recorded Sex Assigned at Not on file Legal Sex Male 2:49 PM CDT Gender Identity Male 11/09/2021 6:39 PM CDT Sexual Orientation Straight 06/09/2020 6: 52 PM TENNIS RACKET REPAIRER Obstetrics History Last Filed Vital Signs Vital Sign Reading Time Taken Comments Blood Pressure 138/88 08/22/2021 1:24 PM CDT Pulse 83 08/22/2021 1:24 PM CDT Temperature 36.6 C (97.8 F) 08/22/2021 1:24 PM CDT Respiratory Rate 18 08/15/2021 8:35 AM CDT Oxygen Saturation 98% 08/15/2021 8:3 5 AM CDT Inhaled Oxygen Concentration - - Weight 155.9 kg (343 lb 12.8 oz) 06/27/2024 11:53 AM TENNIS RACKET REPAIRER scale wt, pt in wheelchair, (wt of chair 58.8 lb, total wt with chair 402.6 lb) Height 190.5 cm (6' 3 ) 06/27/2024 11:5 5 AM TENNIS RACKET REPAIRER Body Mass Index 42.97 06/27/2024 11:53 AM TENNIS RACKET REPAIRER Plan of Treatment Health Maintenance Due Date Last Done Comments Albumin Creatinine Ratio, Urine 1960 Colon Cancer Screening-Colonoscopy 1958 Depression Screening 1958 Hepatitis C Screening 1958 Prostate Cancer Screening-PSA 1958 Dilated Eye Exam 1958 Foot Exam 1958 Lipid Panel 1958 Hepatitis B Screening 1976 Zoster Vaccine (1 of 2) 2008 Pneumococcal vaccine 65+ (2 of 2 - PCV) 03/08/2021 03/08/2020, 07/16/2014 Hemoglobin A1C 01/28/2022 07/28/2021 eGFR 08/12/2022 08/12/2021, 03/3 05/2021, 07/28/2021 Fall Risk Assessment 08/15/2022 08/15/2021 Abdominal Aortic Aneurysm (A AA) Screen 2023 Well Visit 65+ 2023 Covid-19 Vaccine (4 - 2023-2 5 season) 2024 07/13/2021, 10/29/2020, 10/01/2020 Influenza Vaccine (#1) 2024 2, 03/08/2020, 04/04/2019, Additional history exists DTaP/Tdap/Td Vaccine (3 - Td or Tdap) 10/22/2026 10/22/2016, 04/27/2016 Procedures Procedure Name Priority Date/Time Associated Diagnosis Comments EGFR Routine 08/12/2021 10:58 PM CDT POCT HEMOGLOBIN A1C Routine 07/28/2021 2 :56 PM CDT from Last 3 Months or Most Recently Relevant to Health Maintenance Results * (ABNORMAL) eGFR (08/12/2021 10:58 PM CDT) eGFR 72(L) 90 - 130 mL/min/1. 73 m2 [facility] Comment: Interpretive Data Reference Interval Normal >/= 90 mL/min/1.73m2 Mildly decreased* 60 - 89 mL/min/1.73m2 Mildly to moderately decreased 45 - 59 mL/min/1.73m2 Moderately to severely decreased 30 - 44 mL/min/1.73m2 Severely decreased 15 - 29 mL/min/1.73m2 Kidney Failure < 15 mL/min/1.73m2 *Relative to young adult level Estimated glomerular filtration rate is determined by the 2020 CKD-EPI equation recommended by the National Kidney Foundation (A Unifying Approach to GFR Estimation: Recommendations of the NKF-ASK Task Force on Reassessing the Inclusion of Race in Diagnosing Kidney Disease, JASN 2020). The CKD-EPI equation should not be used for patients with unstable renal function and has not been validated in children and those over 70. Current interpretive data was last reviewed 2021. Blood 08/12/2021 10:5 8 PM CDT 08/12/2021 11:18 PM CDT us Jany Short NP LAB BLOOD ORDERABLES Fin al Result Performing Organization Address City/State/[facility] Co de Phone Number [facility] Department [place] [address] * (ABNORMAL) POCT hemoglobin A1c (07/28/2021 2:56 PM CDT) Hgb A1C, POC 5.9(H) 4.0 - 5.6 % [facility] Est Average Gluc POC 123 mg/dL [facility] Comment: The ADA recommends reporting an estimated Average Glucose (eAG) with all Hemoglobin A1c results using the equation derived from a study of 507 normal and diabetic adults. Minority populations were underrepresented and children were not included. (Diabetes Care 31:1040-9273, 2008). The eAG is not equivalent to a fasting glucose. Blood 07/28/2021 2:56 PM CDT 07/28/2021 2:56 PM CDT Jason Zuniga MD POINT OF CARE TEST ORDERABLES F inal Result [facility] Department [place] [address] from Last 3 Months or Most Recently Relevant to Health Maintenance Insurance [facility] MEDICARE ADVANTAGE MEDICARE IDPA [employer] [facility] MEDICARE ADVANTAGE Advance Directives For more information, please contact: [phone] * Full Code (Latest Code Status on File) Date Activated Date Inactivated Comments 08/11/2021 6:57 PM 08/15/2021 7:00 PM Care Teams Salt Manager Relationship Specialty [place] [address] [place] [id number] PCP - General 12/04/16
--- OUTSIDE RECORDS SUMMARY | 2024-08-14 13:59 | XMS_ITS | Clinical Summary ---
Author Organization [facility] Address [address] [place] [address] Care Team Providers Care Supervisor Sewer Maintenance Name Role Phone Alanna Edward MD Primary Care Provider [phone] Medications CPAP DME DEVICE CPAP18 HS [id number] n, VentrapragadaActive Ac tive OXYGEN [id number] bleed in with [id number] VentrapragadaActive 06/23/19 17 Active amlodipine 5 MG tablet 07/10/19 19 Active aspirin 81 MG tablet Take 81 mg by mouth. Active buPROPion SR 150 MG 12 hr tablet 2 08/15/19 19 Active Cholecalcifer ol ([facility] VITAMIN D3) 400 units Cap Active furosemide 20 MG tablet Take 20 mg by mouth. Active lisinopril 10 MG tablet Active metFORMIN ER 500 MG 24 hr tablet 3 07/29/19 19 Active multivitamin tablet Active paroxetine 20 MG tablet 2 08/15/19 19 Active Active Problems Problem Noted Date Diagnosed Date Breathing-related sleep disorder 06/21/2016 SHEARER (dyspnea on exertion) 05/17/2011 Anxiety 08/26/2010 Arthropathies 08/26/2010 Depression 08/26/2010 GERD (gastroesophageal reflux disease) 1 Hiatal hernia 08/26/2010 Gout 08/26/2010 Overview (08/23/2018): Overview: High blood cholesterol 08/26/2010 Hypertension 08/26/2010 Low back pain 08/26/2010 Morbid obesity 08/26/2010 Obstructive sleep apnea of adult 08/26/2010 OCD (obsessive compulsive disorder) 08/26/2010 Old DC (myocardial infarction) 08/26/2010 Personal history of thromboembolic disease 08/26 Family History Medical History Relation Comments Diabetes Father Diabetes Mother Relation Status Comments Father Mother Social History Tobacco Use Types Packs/Day Years Used Date Smoking Tobacco: Former Smokeless Tobacco: Never Sex and Gender Information Value Date Recorded Sex Assigned at Not on file Legal Sex Male 8:30 PM CDT Gender Identity Not on file Sexual Orientation Not on file Last Filed Vital Signs Vital Sign Reading Time Taken Comments Blood Pressure 132/76 08/23/2018 10:47 AM CDT Pulse 80 08/23/2018 10:47 AM CDT Temperature 36.8 C (98.2 F) 08/23/2018 10:47 AM CDT Respiratory Rate 16 08/23/2018 10:47 AM CDT Oxygen Saturation 94% 08/23/2018 10:47 AM CDT Inhaled Oxygen Concentration - - Weight 240.4 kg (530 lb) 08/23/2018 10:47 AM CDT Height 190.5 cm (6' 3 ) 08/23/2018 10:47 AM CDT Body Mass Index 66.25 08/23/2018 10:47 AM CDT Plan of Treatment Health Maintenance Due Date Last Done Comments ASCVD LDL 1958 ASCVD Statin 1958 Colorectal Cancer Screening Colonoscopy (10 Years) 1958 Pneumococcal Vaccine: 65+ Ye ars (1 of 2 - PCV) 1964 Hepatitis C 1976 DTaP, Tdap and Td Vaccines ( 1 - Tdap) 1977 Zoster Vaccines (1 of 2) 2008 RSV Immunization or 60+ Years (1 - Risk 60-74 years 1-dose series) 2018 Annual Medicare Wellness Visit 2023 COVID-19 Vaccine ( - 2023-2 5 season) 2024 Influenza Adult (#1) 2024 Meningococcal B Vaccine Aged Out No l onger eligible based on patient's age to complete this topic Meningococcal Vaccine Aged Out No nico sylvester eligible based on patient's age to complete this topic RSV Immunizations Under 20 Months Aged Out No longer eligible based on patient's age to complete this topic Insurance MEDICARE MEDICAID Care Teams Supervisor Sewer Maintenance Relationship Specialty Start Date End Date Alanna Edward MD [address] [place] [address] PCP - General INTERNAL MEDICINE 08/23/18
--- OUTSIDE RECORDS SUMMARY | 2024-08-14 13:59 | XMS_ITS | Clinical Summary ---
Author Organization [email or web address] Address [address] [facility] [place] [address] Care Team Providers Care New Autos Delivery Driver Name Role Phone Alanna Edward MD Primary Care Provider Source Comments [email or web address],non-owned Affiliates and Associated Physician Practices is amultiple site organization consisting of ambulatory clinics and hospital sitesin [place], [place], [place] and [place]. This disclosure is being madepursuant to the Care Everywhere program and may not contain all information available regarding this patient. Last updated [email or web address] Allergies No known active allergies Medications * Be aware that medications may not be up to date on this document. Alwaysverify current medications with the patient. Medication Sig Dispensed Refills Start Date End Date Status simvastatin (ZOCOR) 40 MG tablet Take 1 (one) tablet by mouth at bedtime Active ALLOPURINOL PO Take 800 mg by mouth 2 times daily Active PARoxetine (PAXIL) 40 MG tablet Take 10 mg by mouth once daily Active furosemide (LASIX) 20 MG tablet Take 1 (one) tablet by mouth once daily Active multivitamins (ONE A DAY) tablet Take 1 (one) tablet by mouth once daily Active vitamin D, cholecalciferol, 1000 UNIT tablet Take 1 (one) tablet by mouth once daily Active Misc Natural Products (TURMERIC CURCUMIN PO) Take 500 mg by mouth daily. Active albuterol HFA (Proventil; Ventolin; Proair) 108 (90 Base) MCG/ACT inhaler Take 2 (two) puffs by mouth every 4 hours as needed 03/30/2023 Active Symbicort 80-4.5 MCG/ACT inhaler Inhale 2 (two) puffs by mouth 2 times daily 03/24/2023 Active gabapentin (Neurontin) 400 MG capsule Take 1 (one) capsule by mouth 3 times daily 03/11/2023 Active naltrexone (Revia) 50 MG tablet TAKE 1 TABLET BY MOUTH ONCE DAILY BEFORE MEAL(S) 04/03/2023 Active buPROPion SR 12hr (Wellbutrin-SR) 150 MG tablet TAKE 1 TABLET BY MOUTH TWICE DAILY BEFORE MEAL(S) 06/02/2023 Active cyanocobalamin (Vitamin B-12) 500 MCG tablet Take 1 (one) tablet by mouth once daily 06/10/2023 Active fluticasone propionate (Flonase) 50 MCG/ACT nasal spray USE 2 SPRAY(S) IN EACH NOSTRIL ONCE DAILY DIRECTED 05/18/2023 Active ascorbic acid (VITAMIN C) 500 MG tablet Take 1 (one) tablet by mouth once daily 08/07/2023 Active SV Iron 325 (65 Fe) MG tablet Take 1 (one) tablet by mouth 2 times daily 11/06/2023 Active nortriptyline (Pamelor) 10 MG capsule TAKE 1 CAPSULE BY MOUTH ONCE DAILY IN THE EVENING Active topiramate (Topamax) 100 MG tablet Take 1 (one) tablet by mouth 2 times daily with morning and evening meal Active finasteride (Proscar) 5 MG tabletIndications: Benign Prostatic Hypertrophy Take 1 (one) tablet by mouth once daily Reasons: Benign Enlargement of Prostate 90 tablet 3 06/16/2024 06/16/2025 Active tamsulosin (Flomax) 0.4 MG capsuleIndications :Benign Prostatic Hypertrophy Take 1 (one) capsule by mouth every 12 hours After a meal. Reasons: Benign Enlargement of Prostate 180 capsule 3 06/16/2024 06/16/2025 Active Active Problems Problem Noted Date Diagnosed Date Benign prostatic hyperplasia with lower urinary tract symptoms 04/16/2023 SHEARER (dyspnea on exertion) 05/17/2011 Morbid obesity 08/26/2010 HTN (hypertension) 08/26/2010 High blood cholesterol 08/26/2010 Gout 08/26/2010 Overview (02/11/2015): Old UT (myocardial infarction) 08/26/2010 Arthropathies 08/26/2010 Low back pain 08/26/2010 GERD (gastroesophageal reflux disease) 1 Hiatal hernia 08/26/2010 Anxiety 08/26/2010 OCD (obsessive compulsive disorder) 08/26/2010 Depression 08/26/2010 GABRIELLE (obstructive sleep apnea) 08/26/2010 Personal history of thromboembolic disease 08/26 Encounters Date Type Department Care Team Description 06/16/2024 2:30 PM CHIEF WHEELAGE CLERK Office Visit [facility] - Urology [address] [place] [address] Varghese Yen MD Benign prostatic hyperplasia with incomplete bladder emptying (Primary Dx) 06/16/2024 Travel from Last 3 Months Family History Medical History Relation Name Comments Diabetes Father Diabetes Mother Relation Name Status Comments Father Mother Social History Tobacco Use Types Packs/Day Years Used Date Smoking Tobacco: Former Cigarettes Q uit: 08/26/1985 Tobacco Cessation:Counseling Given: Not Answered Alcohol Use Standard Drinks/Week Comments No 0 (1 standard drink = 0.6 oz pur e alcohol) Sex and Gender Information Value Date Recorded Sex Assigned at Not on file Gender Identity Not on file Sexual Orientation Not on file Last Filed Vital Signs Vital Sign Reading Time Taken Comments Blood Pressure 118/70 06/16/2024 1:47 PM CHIEF WHEELAGE CLERK Pulse 64 06/16/2024 1:47 PM CHIEF WHEELAGE CLERK Temperature 36.3 C (97.3 F) 06/16/2024 1:47 PM CHIEF WHEELAGE CLERK Respiratory Rate 17 06/16/2024 1:47 PM CHIEF WHEELAGE CLERK Oxygen Saturation 94% 06/16/2024 1:47 PM CHIEF WHEELAGE CLERK Inhaled Oxygen Concentration - - Weight 147.4 kg (325 lb) 06/16/2024 1:47 PM CHIEF WHEELAGE CLERK Height 193 cm (6' 4 ) 06/16/2024 1:47 PM CHIEF WHEELAGE CLERK Body Mass Index 39.56 06/16/2024 1:47 PM CHIEF WHEELAGE CLERK Plan of Treatment Upcoming Encounters Date Type Department Care Team (Late st Contact Info) Description 06/15/2025 2:30 PM CHIEF WHEELAGE CLERK Office Visit [facility] - Urology [address] [place] [address] Varghese Yen MD [address] [facility] [address] [place] [address] Health Maintenance Due Date Last Done Comments COLOGUARD (AGES 45-75) - COL ON CA SCREENING 1958 COLON MONITORING 1958 COLONOSCOPY - COLON CA SCREENING 1958 CT COLONOGRAPHY - COLON CA SCREENING 1958 Colorectal Cancer Screening 1958 FIT - COLON CA SCREENING 1958 FLEX SIG - COLON CA SCREENING 1958 HEPATITIS C SCREENING 03/07/1976 DTAP/TDAP/TD VACCINES (1 - Tdap) 1977 PNEUMOCOCCAL VACCINE 50+ (1 of 1 - PCV) 2008 ZOSTER VACCINE (1 of 2) 2008 Respiratory Syncytial Virus (RSV) Vaccine Pt: or over 60 yrs (1 - Risk 60-74 years 1-dose series) 2018 AAA SCREENING 2023 SCREENING FOR DIABETES 12/18/2023 COVID-19 VACCINE (3 - 2023-2 5 season) 2024 11/08/2020, 10/08/2020 INFLUENZA VACCINE (#1) 2024 DEPRESSION SCREENING 05/14/2024 MEDICARE AWV CALENDAR YEAR 2024 HEPATITIS B VACCINE Aged Out No longe r eligible based on patient's age to complete this topic HIB VACCINE Aged Out No longer eligi ble based on patient's age to complete this topic HPV VACCINE Aged Out No longer eligi ble based on patient's age to complete this topic MENINGOCOCCAL (Group B) VACCINE SHARED DECISION-MAKING Aged Out No longer eligible based on patient's age to complete this topic MENINGOCOCCAL GROUPS A/C/Y/W VACCINE Aged Out No longer eligible b ased on patient's age to complete this topic Care Teams New Autos Delivery Driver Relationship Specialty Start Date End Date Alanna Edward MD [address] [place] [phone] PCP - General 06/07/21
--- OUTSIDE RECORDS SUMMARY | 2024-08-14 13:59 | XMS_ITS | Referral Summary ---
Author Organization [place] [id number] [facility] Address [address] [place] [address] Care Team Providers Care Applications Project Manager Name Role Phone Alanna Edward MD Primary Care Provider Encounters Date Type Department Care Team Description 06/27/2024 11:30 AM MAINTENANCE TRAINER Clinical Support [facility] Diabetes and Nutrition [facility] [address] Morbid obesity (HCC) (Primary Dx); BMI 40.0-44.9, adult (HCC); Other specified intestinal malabsorption; Bariatric surgery status from Last 3 Months Allergies No known active allergies Medications multivitamin [...] by mouth daily 30 tablet 11 4 025 Active Symbicort 160-4.5 mcg/actuation inhaler INHALE [...] (07/22/2021): Added automatically from request for surgery [id number] Essential hypertension 03/09/2021 Mixed hyperlipidemia 03/09/2021 Arthralgia 03/09/2021 Type 2 diabetes mellitus wit h hyperglycemia, with long-term current use of insulin 03/09/2021 Morbid obesity (CMS/HCC) 06/14/2020 Foreign body in ear 01/08/2017 Impacted cerumen 01/08/2017 Hearing loss 01/08/2017 Social History Tobacco Use Types Packs/Day Years [...] Sexual Orientation Straight 06/09/2020 6: 52 PM MAINTENANCE TRAINER Last Filed Vital Signs Vital Sign Reading Time Taken Comments Blood Pressure 138/88 08/22/2021 1:24 PM CDT Pulse 83 08/22/2021 1:24 PM CDT Temperature 36.6 C (97.8 F) 08/22/2021 1:24 PM CDT Respiratory Rate 18 08/15/2021 8:35 AM CDT Oxygen Saturation 98% 08/15/2021 8:3 5 AM CDT Inhaled Oxygen Concentration - - Weight 155.9 kg (343 lb 12.8 oz) 06/27/2024 11:53 AM MAINTENANCE TRAINER scale wt, pt in wheelchair, (wt of chair 58.8 lb, total wt with chair 402.6 lb) Height 190.5 cm (6' 3 ) 06/27/2024 11:5 5 AM MAINTENANCE TRAINER Body Mass Index 42.97 06/27/2024 11:53 AM MAINTENANCE TRAINER Plan of Treatment Not on file Procedures Procedure Name Priority Date/Time Associated Diagnosis Comments EGFR Routine 08/12/2021 10:58 PM CDT POCT HEMOGLOBIN A1C Routine 07/28/2021 2 :56 PM CDT from Last 3 Months or Most Recently Relevant to Health Maintenance Results * (ABNORMAL) eGFR (08/12/2021 10:58 PM CDT) eGFR 72(L) 90 - 130 mL/min/1. 73 m2 [facility] Comment: Interpretive Data Reference Interval Normal >/= [...] 8 PM CDT 08/12/2021 11:18 PM CDT Jany Short NP LAB BLOOD ORDERABLES Fin al Result Performing Organization Address [facility] Co de Phone Number [facility] [place] [address] * (ABNORMAL) POCT hemoglobin A1c (07/28/2021 2:56 PM CDT) Hgb A1C, POC 5.9(H) 4.0 - 5.6 % [facility] Est Average Gluc POC 123 mg/dL [facility] Comment: The ADA recommends reporting an estimated Average Glucose (eAG) with all Hemoglobin A1c results using the equation derived from a study of 507 normal and diabetic adults. Minority populations were underrepresented and children were not included. (Diabetes Care 31:0204-3654, 2008). The eAG is not equivalent to a fasting glucose. Blood 07/28/2021 2:56 PM CDT 07/28/2021 2:56 PM CDT us Jason Zuniga MD POINT OF CARE TEST ORDERABLES F inal Result Performing Organization Address [facility] Co de Phone Number [facility] [place] [address] from Last 3 Months or Most Recently Relevant to Health Maintenance Insurance [employer]CT [facility] MEDICARE ADVANTAGE MEDICARE [facility]PA [facility] MEDICARE ADVANTAGE Advance Directives For more information, please contact: [phone] * Full Code (Latest Code Status on File) Date Activated Date Inactivated Comments 08/11/2021 6:57 PM 08/15/2021 7:00 PM Care Teams Applications Project Manager Relationship Specialty Start Date End Date Alanna Edward MD [address] [place] [id number] PCP - General 12/04/16
--- OUTSIDE RECORDS SUMMARY | 2024-08-14 13:59 | XMS_ITS | Data Portability ---
Author Organization MD - [facility] [employer], Main Office Address [address] [place] [address] Care Team Providers Care Application Development Intern Name Role Phone ALANNA SHELBY Primary Care Provider [phone] ALANNA SHELBY Referring Provider Assessment Encounter Date Assessment Date Assessment LastModified by Organization Details LastModified Time 11/06/2023 11/06/2023 Assessment: Mild persistent asthma Rhinitis Severe OSAHS, AHI = 32, CPAP -> autoBPAP PLMD Iron deficiency Vit E deficiency Plan: The following were reviewed and explained to the patient: [facility] split night sleep study 11/06/05 AHI = 32, 8 cmH2O BPAP titration 07/11/23 [employer] large Stalin full face mask @ max IPAP 25 cmH2O, min EPAP 15 cmH2O, 19-25/15-21 cmH2O, PS 4 cmH2O, PLMI = 102 Lab data 05/09/23 Chest 2 views 05/16/23 no acute disease PFT 09/27/20 nl FEV1/FVC, FEV1 3.06 L (68%), BD 430 mL = 16% PFT 06/18/23 nl FEV1/FVC, FEV1 4.29 L (114%), BD 390 mL = 10% Ferritin 07/23/23 53 ng/mL Ferritin 10/24/23 33 ng/mL Alpha tocopherol 07/23/23 5.9 mg/L Alpha tocopherol 10/24/23 6.7 mg/L Gamma tocopherol 07/23/23 0.7 mg/L Gamma tocopherol 10/24/23 0.6 mg/L Advised to continue not to smoke. Continue Albuterol HFA as needed. Continue budesonide-formote rol 160/4.5 mcg 2 puffs BID. Gargle after use. The patient does not know how to accurately administer the inhalers. Today, the patient was shown how to take these medications. The proper technique for delivering these medications was instructed. The patient expressed a clear understanding and demonstrated back how to use these medications. Without the proper technique, the patient will not reap the benefits of these medications as the contents will not reach the lower airways as intended to be. Adherence to therapy is advocated. Nonadherence may lead to treatment failure, further progression of the condition, and other complications. Hospitals admissions are often the result of individuals not taking prescription medications accurately. Alternatively, greater adherence to medication regimens have shown to lower rates of hospitalization and decrease total medical costs in patients with chronic medical conditions. Elevation in periodic limb movement index may be contributed by paroxetine. Non-pharmacologic therapy options for periodic limb movement disorder include avoidance of aggravating drugs and substances, mental alerting activities, short daily hemodialysis for patients in renal failure, exercise, leg massage, stretching calf muscles, use of a weighted blanket and applied heat. Patient will cut down on caffeine intake. BUN, Creatinine, Vitamin B12, RBC folate, Iron, TIBC, ESR, Magnesium, Hgb and Hct levels are within normal limits. Patient will continue Vitamin E 200 IU/day to keep the alpha tocopherol > 9.0 mg/L and to keep the gamma tocopherol > 0.5 mg/L. Patient will continue FeSO4 325 mg + Vit C 500 mg but increase from daily to twice daily to keep the ferritin > 75 ng/ml. Check Vitamin E and ferritin one week before return. We will hold off on dopaminergic therapy for now. PAP compliance downloaded and interpreted x 20 minutes. Data reviewed and explained to the patient. Average apnea/hypopnea index (AHI) is 5.1. Patient used PAP > 4 hours 90% of the time. PAP is set at 19-25/15-21 cmH2O. PAP will be reset at 20-25/16-21 cmH2O. Keep ramp start at 11/7 cmH2O. Keep ramp duration at 30 minutes. Keep humidifier level at 4 cmH2O. Oxygen supplementation: none Patient is benefiting from PAP therapy. Encouraged patient to maintain PAP use more than 70% of the time. Statement of PAP use and benefits will be sent to the home care store. Educated the patient on problems and solutions associated with positive airway pressure (PAP) use. Difficulty tolerating pressure, mask leaks, intolerance of interface, nasal congestion, claustrophobic response, dry mouth, and unintentional mask removal during sleep were covered. Patient's mask leaks air. We will ensure the mask is situated properly. Patient can wear protective eye covering during sleep, and the mask can be resized. Patient experiences nasal congestion. Patient will use nasal saline spray before starting PAP, use heated PAP humidifier, clean/air dry humidifier reservoir daily, use nasal steroid spray, use ipratropium bromide nasal spray if rhinitis/rhinorrhe a is present or obtain an oronasal/oral interface. Dry mouth is a normal occurrence for people who just start out on PAP therapy because they are not used to air blowing in to the throat to hold open. Dry mouth is exacerbated for people who wear nasal PAP mask and whose jaw drops open during sleep. Not only does this create a much less efficient therapy because of leakage, it also causes dry mouth. There are a couple solutions to help prevent this type of problem. A simple solution would be to wear a chinstrap which essentially holds the jaw in place. A second solution would be a switch to a full face mask which covers both the nose and mouth. Although this is another easy solution, using a full face mask for some could seem claustrophobic or confining. There is no silver bullet solution as no single mask is right for everybody. Sometimes it takes a bit of experimentation to find a PAP mask which best meets the patient's needs as well as fits comfortably. Another tactic is to use a humidifier on your PAP machine. Most new PAP machines have integrated humidifiers. Humidification is marsh when dealing with symptoms of dry mouth because the humidifier can supply both warm and room temperate air. Even a small amount of humidity in the airflow will help nasal passages to stay hydrated. If a person is using both a full face mask and a PAP machine with a heated humidifier and is still experiencing dry mouth, an ill-fitted PAP mask might be causing the problem. Leakage can be caused by a mask that is to large or small, the wrong style mask, the cushion is degraded or simply because the mask's straps aren't adjusted correctly. If leakage occurs, dry air from the room can leak in while humidification escapes. The result is reduced humidification within the circuit and resulting in dry throat and mouth. Finally, beyond factors involving the PAP machine and mask, dry mouth can also be caused or worsened by dehydration. The general recommendation to during eight 8 oz. glasses of water a day might be too little for many people. When people drink large amounts of coffee or other caffeine beverages, or sweat a lot during the day, making sure to rehydrate is an important part of PAP therapy. Provided the patient with a list of local home care stores where positive airway pressure (PAP) units, accoutrement, and services are available. Home care store selection is based on patient's insurance carrier. Patient will setup an appointment with [facility] for supplies and pressure adjustments. A major predictor of success with use of PAP is follow-up with both the respiratory supplier and the treating physician. The download results can show the treating physician information about adherence to treatment, residual AHI while on treatment and presence of large mask leakage. This information is especially helpful if the patient has residual sleepiness despite treatment. General information on sleep disordered breathing, evaluation of sleep disordered breathing, treatment with PAP therapy, and living with PAP therapy were covered. We discussed with the patient the impact of weight on: Sleep disordered breathing Hyperlipidemia Cholelithiasis Gout Bilateral knee OA We discussed with the patient the benefit of PAP therapy on: Sleep disordered breathing Depression/Anxiety Rhinitis Educated the patient on sleep hygiene measures. Relaxing rituals to rest easy, understanding foods with positive and negative impact on sleep, creating a peaceful sleep environment, timing of exercise, using herbal sleep aids, and practicing sleep-friendly meditation were covered. To determine how much sleep is needed, the patient will assess where he falls on the spectrum, examine what lifestyle factors such as work schedules and stress are affecting the quality and quantity of sleep. In general, adults need 7-9 hours of sleep. Educated the patient regarding foods that promote sleep. These include but are not limited to cherries, bananas, toast, oatmeal, and warm milk. Educated the patient regarding foods and drinks to avoid before bedtime. These include but are not limited to aged cheese, chocolate, spicy foods, tomato-based sauces, soy, ginseng tea and processed meat. Advocated influenza vaccination annually and pneumonia vaccination AMAYA. Advocated weight loss through diet and exercise. Patient's ideal body weight according to height and gender is up to 220 lbs. Encouraged patient to adjust caloric intake to maintain/achieve ideal body weight, emphasizing on fruits, vegetables, whole grains, and fat-free or low-fat products. These include lean meats, poultry, fish, beans, eggs, and nuts and foods that are low in saturated fats, trans-fats, cholesterol, salt (sodium), and glycemic index. Stressed the importance of regular exercise up to the patient's capacity limits. In this case, we recommend 20 min daily walking, 2 days a week of resistance training. Patient to monitor BP daily and bring records to PCP for further management. Follow-up: 3 months, January 2024 Not available 11/06/2023 14:51:27 02/06/2024 02/06/2024 Assessment: Mild persistent asthma Rhinitis Severe OSAHS, AHI = 32, CPAP -> autoBPAP PLMD Iron deficiency Vit E deficiency Plan: The following were reviewed and explained to the patient: [facility] split night sleep study 11/06/05 AHI = 32, 8 cmH2O BPAP titration 07/11/23 [employer] large Stalin full face mask @ max IPAP 25 cmH2O, min EPAP 15 cmH2O, 19-25/15-21 cmH2O, PS 4 cmH2O, PLMI = 102 Lab data 05/09/23 Chest 2 views 05/16/23 no acute disease PFT 09/27/20 nl FEV1/FVC, FEV1 3.06 L (68%), BD 430 mL = 16% PFT 06/18/23 nl FEV1/FVC, FEV1 4.29 L (114%), BD 390 mL = 10% Ferritin 07/23/23 53 ng/mL Ferritin 10/24/23 33 ng/mL Ferritin 02/04/24 61 ng/mL Alpha tocopherol 07/23/23 5.9 mg/L Alpha tocopherol 10/24/23 6.7 mg/L Alpha tocopherol 02/04/24 6.9 mg/L Gamma tocopherol 07/23/23 0.7 mg/L Gamma tocopherol 10/24/23 0.6 mg/L Gamma tocopherol 02/04/24 0.4 mg/L Advised to continue not to smoke. Continue Albuterol HFA as needed. Continue budesonide-formote rol 160/4.5 mcg 2 puffs BID. Gargle after use. The patient does not know how to accurately administer the inhalers. Today, the patient was shown how to take these medications. The proper technique for delivering these medications was instructed. The patient expressed a clear understanding and demonstrated back how to use these medications. Without the proper technique, the patient will not reap the benefits of these medications as the contents will not reach the lower airways as intended to be. Adherence to therapy is advocated. Nonadherence may lead to treatment failure, further progression of the condition, and other complications. Hospitals admissions are often the result of individuals not taking prescription medications accurately. Alternatively, greater adherence to medication regimens have shown to lower rates of hospitalization and decrease total medical costs in patients with chronic medical conditions. Elevation in periodic limb movement index may be contributed by paroxetine. Non-pharmacologic therapy options for periodic limb movement disorder include avoidance of aggravating drugs and substances, mental alerting activities, short daily hemodialysis for patients in renal failure, exercise, leg massage, stretching calf muscles, use of a weighted blanket and applied heat. Patient will cut down on caffeine intake. BUN, Creatinine, Vitamin B12, RBC folate, Iron, TIBC, ESR, Magnesium, Hgb and Hct levels are within normal limits. Patient will continue Vitamin E 200 IU/day to keep the alpha tocopherol > 9.0 mg/L and to keep the gamma tocopherol > 0.5 mg/L. Patient will continue FeSO4 325 mg + Vit C 500 mg twice daily to keep the ferritin > 75 ng/ml. Check Vitamin E and ferritin one week before return. We will hold off on dopaminergic therapy for now. PAP compliance downloaded and interpreted x 20 minutes. Data reviewed and explained to the patient. Average apnea/hypopnea index (AHI) is 3.6. Patient used PAP > 4 hours 100% of the time. PAP is set at 20-25/16-21 cmH2O. PAP will remain at 20-25/16-21 cmH2O. Keep ramp start at 11/7 cmH2O. Keep ramp duration at 30 minutes. Keep humidifier level at 4 cmH2O. Oxygen supplementation: none Patient is benefiting from PAP therapy. Encouraged patient to maintain PAP use more than 70% of the time. Statement of PAP use and benefits will be sent to the home care store. Educated the patient on problems and solutions associated with positive airway pressure (PAP) use. Difficulty tolerating pressure, mask leaks, intolerance of interface, nasal congestion, claustrophobic response, dry mouth, and unintentional mask removal during sleep were covered. Patient's mask leaks air. We will ensure the mask is situated properly. Patient can wear protective eye covering during sleep, and the mask can be resized. Patient experiences nasal congestion. Patient will use nasal saline spray before starting PAP, use heated PAP humidifier, clean/air dry humidifier reservoir daily, use nasal steroid spray, use ipratropium bromide nasal spray if rhinitis/rhinorrhe a is present or obtain an oronasal/oral interface. Dry mouth is a normal occurrence for people who just start out on PAP therapy because they are not used to air blowing in to the throat to hold open. Dry mouth is exacerbated for people who wear nasal PAP mask and whose jaw drops open during sleep. Not only does this create a much less efficient therapy because of leakage, it also causes dry mouth. There are a couple solutions to help prevent this type of problem. A simple solution would be to wear a chinstrap which essentially holds the jaw in place. A second solution would be a switch to a full face mask which covers both the nose and mouth. Although this is another easy solution, using a full face mask for some could seem claustrophobic or confining. There is no silver bullet solution as no single mask is right for everybody. Sometimes it takes a bit of experimentation to find a PAP mask which best meets the patient's needs as well as fits comfortably. Another tactic is to use a humidifier on your PAP machine. Most new PAP machines have integrated humidifiers. Humidification is marsh when dealing with symptoms of dry mouth because the humidifier can supply both warm and room temperate air. Even a small amount of humidity in the airflow will help nasal passages to stay hydrated. If a person is using both a full face mask and a PAP machine with a heated humidifier and is still experiencing dry mouth, an ill-fitted PAP mask might be causing the problem. Leakage can be caused by a mask that is to large or small, the wrong style mask, the cushion is degraded or simply because the mask's straps aren't adjusted correctly. If leakage occurs, dry air from the room can leak in while humidification escapes. The result is reduced humidification within the circuit and resulting in dry throat and mouth. Finally, beyond factors involving the PAP machine and mask, dry mouth can also be caused or worsened by dehydration. The general recommendation to during eight 8 oz. glasses of water a day might be too little for many people. When people drink large amounts of coffee or other caffeine beverages, or sweat a lot during the day, making sure to rehydrate is an important part of PAP therapy. Provided the patient with a list of local home care stores where positive airway pressure (PAP) units, accoutrement, and services are available. Home care store selection is based on patient's insurance carrier. Patient will setup an appointment with [employer] for supplies and pressure adjustments. A major predictor of success with use of PAP is follow-up with both the respiratory supplier and the treating physician. The download results can show the treating physician information about adherence to treatment, residual AHI while on treatment and presence of large mask leakage. This information is especially helpful if the patient has residual sleepiness despite treatment. General information on sleep disordered breathing, evaluation of sleep disordered breathing, treatment with PAP therapy, and living with PAP therapy were covered. We discussed with the patient the impact of weight on: Sleep disordered breathing Hyperlipidemia Cholelithiasis Gout Bilateral knee OA We discussed with the patient the benefit of PAP therapy on: Sleep disordered breathing Depression/Anxiety Rhinitis Educated the patient on sleep hygiene measures. Relaxing rituals to rest easy, understanding foods with positive and negative impact on sleep, creating a peaceful sleep environment, timing of exercise, using herbal sleep aids, and practicing sleep-friendly meditation were covered. To determine how much sleep is needed, the patient will assess where he falls on the spectrum, examine what lifestyle factors such as work schedules and stress are affecting the quality and quantity of sleep. In general, adults need 7-9 hours of sleep. Educated the patient regarding foods that promote sleep. These include but are not limited to cherries, bananas, toast, oatmeal, and warm milk. Educated the patient regarding foods and drinks to avoid before bedtime. These include but are not limited to aged cheese, chocolate, spicy foods, tomato-based sauces, soy, ginseng tea and processed meat. Advocated influenza vaccination annually and pneumonia vaccination AMAYA. Advocated weight loss through diet and exercise. Patient's ideal body weight according to height and gender is up to 220 lbs. Encouraged patient to adjust caloric intake to maintain/achieve ideal body weight, emphasizing on fruits, vegetables, whole grains, and fat-free or low-fat products. These include lean meats, poultry, fish, beans, eggs, and nuts and foods that are low in saturated fats, trans-fats, cholesterol, salt (sodium), and glycemic index. Stressed the importance of regular exercise up to the patient's capacity limits. In this case, we recommend 20 min daily walking, 2 days a week of resistance training. Patient to monitor BP daily and bring records to PCP for further management. Follow-up: 3 months, April 2024 Not available 03/02/2024 15:49:25 05/08/2024 05/08/2024 Assessment: Mild persistent asthma Rhinitis Severe OSAHS, AHI = 32, CPAP -> autoBPAP PLMD Iron deficiency Vit E deficiency Plan: The following were reviewed and explained to the patient: [facility] split night sleep study 11/06/05 AHI = 32, 8 cmH2O BPAP titration 07/11/23 [employer] large Stalin full face mask @ max IPAP 25 cmH2O, min EPAP 15 cmH2O, 19-25/15-21 cmH2O, PS 4 cmH2O, PLMI = 102 Lab data 05/09/23 Chest 2 views 05/16/23 no acute disease PFT 09/27/20 nl FEV1/FVC, FEV1 3.06 L (68%), BD 430 mL = 16% PFT 06/18/23 nl FEV1/FVC, FEV1 4.29 L (114%), BD 390 mL = 10% Ferritin 07/23/23 53 ng/mL Ferritin 10/24/23 33 ng/mL Ferritin 02/04/24 61 ng/mL Ferritin 04/27/24 108 ng/mL Alpha tocopherol 07/23/23 5.9 mg/L Alpha tocopherol 10/24/23 6.7 mg/L Alpha tocopherol 02/04/24 6.9 mg/L Alpha tocopherol 04/27/24 6.8 mg/L Gamma tocopherol 07/23/23 0.7 mg/L Gamma tocopherol 10/24/23 0.6 mg/L Gamma tocopherol 02/04/24 0.4 mg/L Gamma tocopherol 04/27/24 <1.0 mg/L Advised to continue not to smoke. Continue Albuterol HFA as needed. Continue budesonide-formote rol 160/4.5 mcg 2 puffs BID. Gargle after use. The patient does not know how to accurately administer the inhalers. Today, the patient was shown how to take these medications. The proper technique for delivering these medications was instructed. The patient expressed a clear understanding and demonstrated back how to use these medications. Without the proper technique, the patient will not reap the benefits of these medications as the contents will not reach the lower airways as intended to be. Adherence to therapy is advocated. Nonadherence may lead to treatment failure, further progression of the condition, and other complications. Hospitals admissions are often the result of individuals not taking prescription medications accurately. Alternatively, greater adherence to medication regimens have shown to lower rates of hospitalization and decrease total medical costs in patients with chronic medical conditions. Elevation in periodic limb movement index may be contributed by paroxetine. Non-pharmacologic therapy options for periodic limb movement disorder include avoidance of aggravating drugs and substances, mental alerting activities, short daily hemodialysis for patients in renal failure, exercise, leg massage, stretching calf muscles, use of a weighted blanket and applied heat. Patient will cut down on caffeine intake. BUN, Creatinine, Vitamin B12, RBC folate, Iron, TIBC, ESR, Magnesium, Hgb and Hct levels are within normal limits. Patient will continue Vitamin E 200 IU/day to keep the alpha tocopherol > 9.0 mg/L and to keep the gamma tocopherol > 0.5 mg/L. Patient will continue FeSO4 325 mg + Vit C 500 mg but decrease from twice daily to daily to keep the ferritin > 75 ng/ml. Check Vitamin E and ferritin one week before return. We will hold off on dopaminergic therapy for now. PAP compliance downloaded and interpreted x 20 minutes. Data reviewed and explained to the patient. Average apnea/hypopnea index (AHI) is 3.1. Patient used PAP > 4 hours 100% of the time. PAP is set at 20-25/16-21 cmH2O. PAP will remain at 20-25/16-21 cmH2O. Keep ramp start at 11/7 cmH2O. Keep ramp duration at 30 minutes. Keep humidifier level at 4 cmH2O. Oxygen supplementation: none Patient is benefiting from PAP therapy. Encouraged patient to maintain PAP use more than 70% of the time. Statement of PAP use and benefits will be sent to the home care store. Educated the patient on problems and solutions associated with positive airway pressure (PAP) use. Difficulty tolerating pressure, mask leaks, intolerance of interface, nasal congestion, claustrophobic response, dry mouth, and unintentional mask removal during sleep were covered. Patient's mask leaks air. We will ensure the mask is situated properly. Patient can wear protective eye covering during sleep, and the mask can be resized. Patient experiences nasal congestion. Patient will use nasal saline spray before starting PAP, use heated PAP humidifier, clean/air dry humidifier reservoir daily, use nasal steroid spray, use ipratropium bromide nasal spray if rhinitis/rhinorrhe a is present or obtain an oronasal/oral interface. Dry mouth is a normal occurrence for people who just start out on PAP therapy because they are not used to air blowing in to the throat to hold open. Dry mouth is exacerbated for people who wear nasal PAP mask and whose jaw drops open during sleep. Not only does this create a much less efficient therapy because of leakage, it also causes dry mouth. There are a couple solutions to help prevent this type of problem. A simple solution would be to wear a chinstrap which essentially holds the jaw in place. A second solution would be a switch to a full face mask which covers both the nose and mouth. Although this is another easy solution, using a full face mask for some could seem claustrophobic or confining. There is no silver bullet solution as no single mask is right for everybody. Sometimes it takes a bit of experimentation to find a PAP mask which best meets the patient's needs as well as fits comfortably. Another tactic is to use a humidifier on your PAP machine. Most new PAP machines have integrated humidifiers. Humidification is marsh when dealing with symptoms of dry mouth because the humidifier can supply both warm and room temperate air. Even a small amount of humidity in the airflow will help nasal passages to stay hydrated. If a person is using both a full face mask and a PAP machine with a heated humidifier and is still experiencing dry mouth, an ill-fitted PAP mask might be causing the problem. Leakage can be caused by a mask that is to large or small, the wrong style mask, the cushion is degraded or simply because the mask's straps aren't adjusted correctly. If leakage occurs, dry air from the room can leak in while humidification escapes. The result is reduced humidification within the circuit and resulting in dry throat and mouth. Finally, beyond factors involving the PAP machine and mask, dry mouth can also be caused or worsened by dehydration. The general recommendation to during eight 8 oz. glasses of water a day might be too little for many people. When people drink large amounts of coffee or other caffeine beverages, or sweat a lot during the day, making sure to rehydrate is an important part of PAP therapy. Provided the patient with a list of local home care stores where positive airway pressure (PAP) units, accoutrement, and services are available. Home care store selection is based on patient's insurance carrier. Patient will setup an appointment with [facility] for supplies and pressure adjustments. A major predictor of success with use of PAP is follow-up with both the respiratory supplier and the treating physician. The download results can show the treating physician information about adherence to treatment, residual AHI while on treatment and presence of large mask leakage. This information is especially helpful if the patient has residual sleepiness despite treatment. General information on sleep disordered breathing, evaluation of sleep disordered breathing, treatment with PAP therapy, and living with PAP therapy were covered. We discussed with the patient the impact of weight on: Sleep disordered breathing Hyperlipidemia Cholelithiasis Gout Bilateral knee OA We discussed with the patient the benefit of PAP therapy on: Sleep disordered breathing Depression/Anxiety Rhinitis Educated the patient on sleep hygiene measures. Relaxing rituals to rest easy, understanding foods with positive and negative impact on sleep, creating a peaceful sleep environment, timing of exercise, using herbal sleep aids, and practicing sleep-friendly meditation were covered. To determine how much sleep is needed, the patient will assess where he falls on the spectrum, examine what lifestyle factors such as work schedules and stress are affecting the quality and quantity of sleep. In general, adults need 7-9 hours of sleep. Educated the patient regarding foods that promote sleep. These include but are not limited to cherries, bananas, toast, oatmeal, and warm milk. Educated the patient regarding foods and drinks to avoid before bedtime. These include but are not limited to aged cheese, chocolate, spicy foods, tomato-based sauces, soy, ginseng tea and processed meat. Advocated influenza vaccination annually and pneumonia vaccination AMAYA. Advocated weight loss through diet and exercise. Patient's ideal body weight according to height and gender is up to 220 lbs. Encouraged patient to adjust caloric intake to maintain/achieve ideal body weight, emphasizing on fruits, vegetables, whole grains, and fat-free or low-fat products. These include lean meats, poultry, fish, beans, eggs, and nuts and foods that are low in saturated fats, trans-fats, cholesterol, salt (sodium), and glycemic index. Stressed the importance of regular exercise up to the patient's capacity limits. In this case, we recommend 20 min daily walking, 2 days a week of resistance training. Patient to monitor BP daily and bring records to PCP for further management. Follow-up: 3 months, July 2024 Not available 05/08/2024 15:38:59 07/17/2024 07/17/2024 Assessment: Mild persistent asthma Rhinitis Severe OSAHS, AHI = 32, CPAP -> autoBPAP PLMD Iron deficiency Vit E deficiency Plan: The following were reviewed and explained to the patient: [facility] split night sleep study 11/06/05 AHI = 32, 8 cmH2O BPAP titration 07/11/23 Joaquim large Stalin full face mask @ max IPAP 25 cmH2O, min EPAP 15 cmH2O, 19-25/15-21 cmH2O, PS 4 cmH2O, PLMI = 102 Lab data 05/09/23 Chest 2 views 05/16/23 no acute disease PFT 09/27/20 nl FEV1/FVC, FEV1 3.06 L (68%), BD 430 mL = 16% PFT 06/18/23 nl FEV1/FVC, FEV1 4.29 L (114%), BD 390 mL = 10% Ferritin 07/23/23 53 ng/mL Ferritin 10/24/23 33 ng/mL Ferritin 02/04/24 61 ng/mL Ferritin 04/27/24 108 ng/mL Ferritin 07/09/24 78 ng/mL Alpha tocopherol 07/23/23 5.9 mg/L Alpha tocopherol 10/24/23 6.7 mg/L Alpha tocopherol 02/04/24 6.9 mg/L Alpha tocopherol 04/27/24 6.8 mg/L Alpha tocopherol 07/09/24 7.5 mg/L Gamma tocopherol 07/23/23 0.7 mg/L Gamma tocopherol 10/24/23 0.6 mg/L Gamma tocopherol 02/04/24 0.4 mg/L Gamma tocopherol 04/27/24 <1.0 mg/L Gamma tocopherol 07/09/24 <1.0 mg/L Advised to continue not to smoke. Continue Albuterol HFA as needed. Continue budesonide-formote rol 160/4.5 mcg 2 puffs BID. Gargle after use. The patient does not know how to accurately administer the inhalers. Today, the patient was shown how to take these medications. The proper technique for delivering these medications was instructed. The patient expressed a clear understanding and demonstrated back how to use these medications. Without the proper technique, the patient will not reap the benefits of these medications as the contents will not reach the lower airways as intended to be. Adherence to therapy is advocated. Nonadherence may lead to treatment failure, further progression of the condition, and other complications. Hospitals admissions are often the result of individuals not taking prescription medications accurately. Alternatively, greater adherence to medication regimens have shown to lower rates of hospitalization and decrease total medical costs in patients with chronic medical conditions. Elevation in periodic limb movement index may be contributed by paroxetine. Non-pharmacologic therapy options for periodic limb movement disorder include avoidance of aggravating drugs and substances, mental alerting activities, short daily hemodialysis for patients in renal failure, exercise, leg massage, stretching calf muscles, use of a weighted blanket and applied heat. Patient will cut down on caffeine intake. BUN, Creatinine, Vitamin B12, RBC folate, Iron, TIBC, ESR, Magnesium, Hgb and Hct levels are within normal limits. Patient will continue Vitamin E 200 IU/day to keep the alpha tocopherol > 9.0 mg/L and to keep the gamma tocopherol > 0.5 mg/L. Patient will continue FeSO4 325 mg + Vit C 500 mg but increase from daily to twice daily to keep the ferritin > 75 ng/ml. Check Vitamin E and ferritin one week before return. We will hold off on dopaminergic therapy for now. PAP compliance downloaded and interpreted x 20 minutes. Data reviewed and explained to the patient. Average apnea/hypopnea index (AHI) is 4.0. Patient used PAP > 4 hours 99% of the time. PAP is set at 20-25/16-21 cmH2O. PAP will remain at 20-25/16-21 cmH2O. Keep ramp start at 11/7 cmH2O. Keep ramp duration at 30 minutes. Increase humidifier level from 4 to 5 cmH2O. Oxygen supplementation: none Patient is benefiting from PAP therapy. Encouraged patient to maintain PAP use more than 70% of the time. Statement of PAP use and benefits will be sent to the home care store. Educated the patient on problems and solutions associated with positive airway pressure (PAP) use. Difficulty tolerating pressure, mask leaks, intolerance of interface, nasal congestion, claustrophobic response, dry mouth, and unintentional mask removal during sleep were covered. Patient's mask leaks air. We will ensure the mask is situated properly. Patient can wear protective eye covering during sleep, and the mask can be resized. Patient experiences nasal congestion. Patient will use nasal saline spray before starting PAP, use heated PAP humidifier, clean/air dry humidifier reservoir daily, use nasal steroid spray, use ipratropium bromide nasal spray if rhinitis/rhinorrhe a is present or obtain an oronasal/oral interface. Dry mouth is a normal occurrence for people who just start out on PAP therapy because they are not used to air blowing in to the throat to hold open. Dry mouth is exacerbated for people who wear nasal PAP mask and whose jaw drops open during sleep. Not only does this create a much less efficient therapy because of leakage, it also causes dry mouth. There are a couple solutions to help prevent this type of problem. A simple solution would be to wear a chinstrap which essentially holds the jaw in place. A second solution would be a switch to a full face mask which covers both the nose and mouth. Although this is another easy solution, using a full face mask for some could seem claustrophobic or confining. There is no silver bullet solution as no single mask is right for everybody. Sometimes it takes a bit of experimentation to find a PAP mask which best meets the patient's needs as well as fits comfortably. Another tactic is to use a humidifier on your PAP machine. Most new PAP machines have integrated humidifiers. Humidification is marsh when dealing with symptoms of dry mouth because the humidifier can supply both warm and room temperate air. Even a small amount of humidity in the airflow will help nasal passages to stay hydrated. If a person is using both a full face mask and a PAP machine with a heated humidifier and is still experiencing dry mouth, an ill-fitted PAP mask might be causing the problem. Leakage can be caused by a mask that is to large or small, the wrong style mask, the cushion is degraded or simply because the mask's straps aren't adjusted correctly. If leakage occurs, dry air from the room can leak in while humidification escapes. The result is reduced humidification within the circuit and resulting in dry throat and mouth. Finally, beyond factors involving the PAP machine and mask, dry mouth can also be caused or worsened by dehydration. The general recommendation to during eight 8 oz. glasses of water a day might be too little for many people. When people drink large amounts of coffee or other caffeine beverages, or sweat a lot during the day, making sure to rehydrate is an important part of PAP therapy. Provided the patient with a list of local home care stores where positive airway pressure (PAP) units, accoutrement, and services are available. Home care store selection is based on patient's insurance carrier. Patient will setup an appointment with [facility] for supplies and pressure adjustments. A major predictor of success with use of PAP is follow-up with both the respiratory supplier and the treating physician. The download results can show the treating physician information about adherence to treatment, residual AHI while on treatment and presence of large mask leakage. This information is especially helpful if the patient has residual sleepiness despite treatment. General information on sleep disordered breathing, evaluation of sleep disordered breathing, treatment with PAP therapy, and living with PAP therapy were covered. We discussed with the patient the impact of weight on: Sleep disordered breathing Hyperlipidemia Cholelithiasis Gout Bilateral knee OA We discussed with the patient the benefit of PAP therapy on: Sleep disordered breathing Depression/Anxiety Rhinitis Educated the patient on sleep hygiene measures. Relaxing rituals to rest easy, understanding foods with positive and negative impact on sleep, creating a peaceful sleep environment, timing of exercise, using herbal sleep aids, and practicing sleep-friendly meditation were covered. To determine how much sleep is needed, the patient will assess where he falls on the spectrum, examine what lifestyle factors such as work schedules and stress are affecting the quality and quantity of sleep. In general, adults need 7-9 hours of sleep. Educated the patient regarding foods that promote sleep. These include but are not limited to cherries, bananas, toast, oatmeal, and warm milk. Educated the patient regarding foods and drinks to avoid before bedtime. These include but are not limited to aged cheese, chocolate, spicy foods, tomato-based sauces, soy, ginseng tea and processed meat. Advocated influenza vaccination annually and pneumonia vaccination AMAYA. Advocated weight loss through diet and exercise. Patient's ideal body weight according to height and gender is up to 220 lbs. Encouraged patient to adjust caloric intake to maintain/achieve ideal body weight, emphasizing on fruits, vegetables, whole grains, and fat-free or low-fat products. These include lean meats, poultry, fish, beans, eggs, and nuts and foods that are low in saturated fats, trans-fats, cholesterol, salt (sodium), and glycemic index. Stressed the importance of regular exercise up to the patient's capacity limits. In this case, we recommend 20 min daily walking, 2 days a week of resistance training. Patient to monitor BP daily and bring records to PCP for further management. Follow-up: 6 months, January 2025 [facility] Not available 07/17/2024 12:53:48 Plan of Treatment Reminders Order Date Submit Date Provider Last Modified By Organization Details Last Modified Time Details Appointments Any 15 2024 01:30P Karma Crawford MD Not available Not available Not available Lab ferritin, serum or plasma 2024 025 [email or web address], [address] , [place], [address], 07/17/2024 12:46:43 vitamin E, serum 2024 025 [email or web address], [address], [place], [address], 07/17/2024 12:57:57 ferritin, serum or plasma 2023 025 [facility] (Lab), [address] [place], [address], 07/13/2024 21:02:56 vitamin E, serum 2023 025 [facility] (Lab), [address] [place], [address], 07/13/2024 21:02:57 ferritin, serum or plasma 2023 024 [facility] (Lab), [address] [place], [address], 05/08/2024 17:20:08 vitamin E, serum 2023 024 [facility] (Lab), [address] [place], [address], 07/07/2024 09:56:30 ferritin, serum or plasma 2023 024 [facility] (Lab), [address] [place], [address], 02/04/2024 17:40:14 vitamin E, serum 2023 024 [facility] (Lab), [address] [place], [address], 02/10/2024 17:08:48 Referral None recorded. Procedures colonosco py procedure (PROC) 2023 024 [facility] (Pre-Screen), [address] [place], [address], 12/24/2023 11:53:32 Surgeries None recorded. Imaging None recorded. Medication Orders ferrous sulfate 325 mg (65 mg iron) tablet 2024 025 [facility], [address] [place] [address], [id number], 07/17/2024 12:46:51 Vitamin C 500 mg tablet 2024 025 [facility], [address] [place] [address], [address], 07/17/2024 12:46:55 vitamin E mixed 200 unit tablet 2024 025 [facility], [address] [place] [address], [id number], 07/17/2024 12:46:53 albuterol sulfate HFA 90 mcg/actua tion aerosol inhaler 2024 025 [facility], [address] [place] [address], [address], 07/17/2024 12:46:52 Symbicort 160 mcg-4.5 mcg/actua tion HFA aerosol inhaler 2024 025 [facility], [address] [place], [address], 07/17/2024 12:46:54 ferrous sulfate 325 mg (65 mg iron) tablet 2023 024 [facility], [address] [place], [address], 05/08/2024 15:33:45 Vitamin C 500 mg tablet 2023 024 [facility], [address] [place] [address], [address], 05/08/2024 15:33:46 vitamin E mixed 200 unit tablet 2023 024 [facility], [address] [place] [address], [address], 05/08/2024 15:33:46 albuterol sulfate HFA 90 mcg/actua tion aerosol inhaler 2023 024 [facility], [address] [place] [address], [id number], 05/08/2024 15:33:48 Symbicort 160 mcg-4.5 mcg/actua tion HFA aerosol inhaler 2023 024 [facility], [address] [place] [address], [id number], 05/08/2024 15:33:49 albuterol sulfate HFA 90 mcg/actua tion aerosol inhaler 2023 024 [facility], [address] [place] [address], [address], 02/06/2024 14:51:04 Symbicort 160 mcg-4.5 mcg/actua tion HFA aerosol inhaler 2023 024 [facility], [address] [place] [address], [address], 02/06/2024 14:51:07 ferrous sulfate 325 mg (65 mg iron) tablet 2023 024 [facility], [address] [place] [address], [address], 02/06/2024 14:51:05 Vitamin C 500 mg tablet 2023 024 [facility] [address], [address] [place] [address], [address], 02/06/2024 14:51:05 vitamin E mixed 200 unit tablet 2023 024 [facility], [address] [place] [address], [address], 02/06/2024 14:51:06 Golytely 236 gram-22.7 4 gram-6.74 gram-5.86 gram oral solution [address] [facility] [address] [facility], [address] [place] [address], [id number], 02/06/2024 14:39:56 albuterol sulfate HFA 90 mcg/actua tion aerosol inhaler 2023 024 [facility], [address] [place] [address], [address], 11/06/2023 14:46:35 Symbicort 160 mcg-4.5 mcg/actua tion HFA aerosol inhaler 2023 024 [facility], [address] [place] [address] [place], [address], 11/06/2023 14:46:34 ferrous sulfate 325 mg (65 mg iron) tablet 2023 024 [facility], [address] [place] [address], [address], 11/06/2023 14:46:34 Vitamin C 500 mg tablet 2023 024 [facility], [address] [place] [address], [address], 11/06/2023 14:46:31 vitamin E mixed 200 unit tablet 2023 [facility], [address] [place] [address], [address], 11/06/2023 14:46:35 Patient TargetsNo targets recorded. Patient Instructions Encounter Date Encounter Id Patient Instructions Last Modified By Organization Details Last Modified Time 12/12/2023 [id number] KULDIP [email or web address] Not available 14:20:45 PT WITH ALTERED BM. SX ARE COMPOUNDED BY LOW BACK PROBLEMS. NEEDS A SCREENING COLON . . Risks benefits and complications were explained to the pt. ( BLEEDING PERFORATION , INFECTION , ). PT VERBALIZES UNDERSTANDING AND IS WILLING TO PROCEDE . [email or web address] Not available 12/12/2023 14:21:34 Reason for Referral None Reported. Results Created Date Observation Date Name Description Value Unit Range Abnormal Flag Note LastModifiedBy Organization Detail LastModifiedTime 04/24/2004/27/2024 FRANCIS TIN ferritin 108 NG/mL 24-380 normal Not Available [facility] [address] [facility] [place], [address], 04/27/2024 13:13:55 04/24/20 24 04/27/2024 VITAM IN E (TOCO PHERO L) vitamin E, alpha tocopherol 6.8 mg/L 5.7-19 .9 Level s of alpha -toco phero l <5 mg/L are consi stent with Vitam in E defic iency in adult s. Not Available [facility] [address] [place] [address] [place], [address], 04/27/2024 13:13:56 04/24/20 24 04/27/2024 VITAM IN E (TOCO PHERO L) vitamin E, beta gamma tocopherol <1.0 mg/L <4.4 (Note ) Vitam in suppl ement ation withi n 24 hours prior to blood draw may affec t the accur acy of resul ts. This test was devel oped and its nirmal tical perfo rmanc e basil cteri stics have been deter mined by [email or web address]. It has not been clear ed or appro moo by the FDA. This assay has been valid ated pursu ant to the CLIA regul ation s and is used for clini shiraz purpo ses. MDF med fusio n [address] [facility] [address] [facility] [address] [phone] [facility] adela Cox MD, PhD Not Available [facility] [address] [address] [address], [place], [address], 04/27/2024 13:13:56 07/09/19 25 07/13/2024 FRANCIS TIN ferritin 78 NG/mL 24-380 normal Not Available [facility] [address] [address] [address], [place], [address], 07/13/2024 21:02:56 07/09/19 25 07/13/2024 VITAM IN E (TOCO PHERO L) vitamin E, alpha tocopherol 7.5 mg/L 5.7-19 .9 Level s of alpha -toco phero l <5 mg/L are consi stent with Vitam in E defic iency in adult s. Not Available [facility] [place] [address] [place], [address], 07/13/2024 21:02:57 07/09/19 25 07/13/2024 VITAM IN E (TOCO PHERO L) vitamin E, beta gamma tocopherol <1.0 mg/L <4.4 (Note ) Vitam in suppl ement atdominic withi n 24 hours prior to blood draw may affec t the accur acy of [facility] ts. This test was devel oped and its nirmal tical perfo rmanc e basil cteri stics have been deter mined by [email or web address]. It has not been clear ed or appro moo by the FDA. This assay has been valid ated pursu ant to the CLIA regul ation s and is used for clini shiraz purpo ses. MDF med fusio n [address] [facility] [address] [place] [address] [phone] Emmanuel Cox MD, PhD Not Available [facility] [address] [address] , [place], [address], 07/13/2024 21:02:57 Result Notes None recorded. Problems Name Problem SNOMED Code Status Onset Date Resolution Date Notes Provider Name and Address Organization Details Recorded Time Morbid obesity 409071061 Active 2021 Not Available [facility] 3 00:43:39 Cholelithi asis without obstructio n 90104406 Active Not Available [facility] 3 00:43:39 Posterior rhinorrhea 46579190 Active 2020 Not Available [facility] 3 00:43:40 Obstructiv e sleep apnea syndrome 06101131 Active 2020 Not Available [facility] 3 00:43:40 Osteoarthr itis of right knee joint 9850916066618 00 Active 2023 ADRIANO Monteiro null, [facility] 4 14:02:26 Periodic limb movement disorder 612243723 Active 2023 Luciano Crawford MD [address] [place] [address], [place], [address] , [facility] 4 11:11:32 Vitamin E deficiency 11262603 Active 2023 Luciano Crawford MD [address], [place], [address] , [place] [facility] 4 15:03:43 Iron deficiency 90981965 Active 2023 Luciano Crawford MD [address], [facility] [address], [place], [address] , [facility] 4 15:03:56 Mild persistent asthma 905390343 Active 2023 Luciano Crawford MD [address] [facility], [facility] [address], [place], [address] , [facility] 4 15:26:11 Notes:Medical History: Depre ssion/Anxiety/OCD 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 Procedures Surgical History Date Name Laterality Status Provider Name and Address Organization Details Recorded Time Hernia Repair completed Not Available [facility] 07/12/2022 00:41:08 Colonoscopy completed Not Available [facility] 07/12/2022 00:41:08 Imaging Results None recorded. Procedure Notes None recorded. Medical Equipment None Reported. Allergies No known drug allergies Medications Name Sig Start Date Stop Date Status Note LastModified by Organization Details LastModified Time vitamin c 500mg tab TAKE 1 TABLET BY MOUTH ONCE DAILY active Not Available Not Available No t Available cyclobenzap rine 10 mg tablet TAKE 1 TABLET BY MOUTH THREE TIMES DAILY DIRECTED FOR 14 DAYS 12/07 completed Not Available Not Available Not Available furosemide 40 mg tablet TAKE 1 TABLET BY MOUTH ONCE DAILY active Not Available Not Available No t Available bupropion HCl SR 150 mg tablet,12 hr sustained-r elease TAKE 1 TABLET BY MOUTH TWICE DAILY BEFORE MEAL(S) active Not Available Not Available No t Available neomycin-po lymyxin-hyd rocort 3.5 mg/mL-10,00 0 unit/mL-1 % ear solution 07/19 completed Not Available Not Available Not Available doxycycline hyclate 100 mg capsule TAKE 1 CAPSULE BY MOUTH TWICE DAILY 10/14 completed Not Available Not Available Not Available paroxetine 10 mg tablet TAKE 1 TABLET BY MOUTH ONCE DAILY IN THE MORNING active Not Available Not Available No t Available albuterol sulfate 2.5 mg/3 mL (0.083 %) solution for nebulizatio n Inhale 3 mL 3 times a day by nebulizat ion route for 30 days. 05/03 completed Not Available Not Available Not Available Vitamin C 500 mg tablet Take 1 tablet every day by oral route. 2024 active Not Available Not Available Not Avai lable azithromyci n 250 mg tablet 02/05 completed Not Available Not Available Not Available naltrexone 50 mg tablet TAKE 1 TABLET BY MOUTH ONCE DAILY BEFORE MEAL(S) active Not Available Not Available No t Available ondansetron HCl 4 mg tablet TAKE 1 TABLET BY MOUTH EVERY 6 HOURS NEEDED FOR NAUSEA FOR VOMITING 08/10 completed Not Available Not Available Not Available gabapentin 400 mg capsule TAKE 1 CAPSULE BY MOUTH THREE TIMES DAILY active Not Available Not Available No t Available penicillin V potassium 500 mg tablet active Not Available Not Available Not Available ciprofloxac in 250 mg tablet TAKE 1 TABLET BY MOUTH EVERY 12 HOURS DIRECTED FOR 3 DAYS 11/05 completed Not Available Not Available Not Available amlodipine 5 mg tablet TAKE 1 TABLET BY MOUTH ONCE DAILY 08/10 completed Not Available Not Available Not Available allopurinol 100 mg tablet TAKE 2 TABLETS BY MOUTH ONCE DAILY DIRECTED 10/07 completed Not Available Not Available Not Available ciprofloxac in 500 mg tablet TAKE 1 TABLET BY MOUTH EVERY 12 HOURS DIRECTED FOR 10 DAYS 08/10 completed Not Available Not Available Not Available sulfamethox azole 800 mg-trimetho prim 160 mg tablet 07/19 completed Not Available Not Available Not Available omeprazole 40 mg capsule,del ayed release TAKE 1 CAPSULE BY MOUTH TWICE DAILY 08/10 completed Not Available Not Available Not Available tramadol 50 mg tablet active Not Available Not Available No t Available simvastatin 40 mg tablet TAKE 1 TABLET BY MOUTH ONCE DAILY active Not Available Not Available No t Available Depo-Medrol 80 mg/mL suspension for injection in office 05/03 completed Not Available Not Available Not Available ofloxacin 0.3 % ear drops INSTILL 10 DROPS INTO AFFECTED EAR(S) TWICE DAILY DIRECTED FOR 10 DAYS 08/10 completed Not Available Not Available Not Available famotidine 20 mg tablet 08/31 completed Not Available Not Available Not Available lorazepam 0.5 mg tablet TAKE 1 TABLET BY MOUTH ONCE DAILY NEEDED FOR 10 DAYS 06/07 completed Not Available Not Available Not Available cyanocobala min (vit B-12) 500 mcg tablet TAKE 1 TABLET BY MOUTH ONCE DAILY active Not Available Not Available No t Available tamsulosin 0.4 mg capsule TAKE 1 CAPSULE BY MOUTH EVERY 12 HOURS AFTER A MEAL active Not Available Not Available No t Available Kenalog 10 mg/mL suspension for injection Take 2 mL by injection route. 2023 completed [facility]: [id number] [phone] [phone] Not Available Not Available Not Available cephalexin 500 mg capsule TAKE 1 CAPSULE BY MOUTH TWICE DAILY 10/14 completed Not Available Not Available Not Available paroxetine 30 mg tablet 07/19 completed Not Available Not Available Not Available paroxetine 20 mg tablet TAKE 1 TABLET BY MOUTH ONCE DAILY IN THE MORNING FOR 30 DAYS 08/10 completed Not Available Not Available Not Available nortriptyli ne 10 mg capsule TAKE 1 CAPSULE BY MOUTH NIGHTLY active Not Available Not Available No t Available lisinopril 10 mg tablet TAKE 1 TABLET BY MOUTH ONCE DAILY 07/19 completed Not Available Not Available Not Available ursodiol 300 mg capsule TAKE 1 CAPSULE BY MOUTH TWICE DAILY 11/23 completed Not Available Not Available Not Available ursodiol 250 mg tablet TAKE 1 TABLET BY MOUTH TWICE DAILY 11/23 completed Not Available Not Available Not Available docusate sodium 100 mg capsule TAKE 1 CAPSULE BY MOUTH TWICE DAILY 08/10 completed Not Available Not Available Not Available gabapentin 300 mg capsule TAKE 1 CAPSULE BY MOUTH THREE TIMES DAILY 05/03 completed Not Available Not Available Not Available allopurinol 300 mg tablet TAKE 2 TABLETS BY MOUTH ONCE DAILY DIRECTED active Not Available Not Available No t Available furosemide 20 mg tablet active Not Available Not Available Not Available gabapentin 100 mg capsule TAKE 1 CAPSULE BY MOUTH THREE TIMES DAILY FOR 21 DAYS 12/01 completed Not Available Not Available Not Available polyethylen e glycol 3350 17 gram/dose oral powder active Not Available Not Available Not Available levofloxaci n 750 mg tablet TAKE 1 TABLET BY MOUTH ONCE DAILY DIRECTED FOR 3 DAYS 07/19 completed Not Available Not Available Not Available scopolamine 1 mg over [address] 1 PATCH ON THE SKIN ONCE FOR [address] BEHIND EAR AT 8 PM THE NIGHT PRIOR TO SURGERY 08/10 completed Not Available Not Available Not Available methylpredn isolone 4 mg tablets in a dose pack TAKE BY MOUTH DIRECTED ON INSIDE OF PACKAGE 05/03 completed Not Available Not Available Not Available albuterol sulfate HFA 90 mcg/actuati on aerosol inhaler INHALE 1 PUFF BY MOUTH EVERY 4 HOURS NEEDED active Not Available Not Available No t Available ipratropium bromide 42 mcg (0.06 %) nasal spray 07/19 completed Not Available Not Available Not Available topiramate 100 mg tablet TAKE 1 TABLET BY MOUTH THREE TIMES DAILY WITH MEALS active Not Available Not Available No t Available fluticasone propionate 50 mcg/actuati on nasal spray,suspe nsion USE 2 SPRAY(S) IN EACH NOSTRIL ONCE DAILY DIRECTED active Not Available Not Available No t Available metformin ER 500 mg tablet,exte nded release 24 hr TAKE 2 TABLETS BY MOUTH ONCE DAILY 08/10 completed Not Available Not Available Not Available finasteride 5 mg tablet TAKE 1 TABLET BY MOUTH ONCE DAILY active Not Available Not Available No t Available loratadine 10 mg tablet TAKE 1 TABLET BY MOUTH ONCE DAILY 08/10 completed Not Available Not Available Not Available naproxen 500 mg tablet TAKE 1 TABLET BY MOUTH TWICE DAILY WITH FOOD 08/24 completed Not Available Not Available Not Available amoxicillin 875 mg-potassiu m clavulanate 125 mg tablet TAKE 1 TABLET BY MOUTH EVERY 12 HOURS FOR 7 DAYS 12/07 completed Not Available Not Available Not Available oxycodone 5 mg tablet 12/07 completed Not Available Not Available Not Available neomycin-po lymyxin-hyd rocort 3.5 mg-10,000 unit/mL-1 % ear drops,susp active Not Available Not Available N ot Available enoxaparin 40 mg/0.4 mL subcutaneou s syringe INJECT 0.4 ML SUBCUTANE OUSLY EVERY 12 HOURS 08/10 completed Not Available Not Available Not Available amoxicillin -potassium clavulanate 1,000 mg-62.5 mg tablet,ext. rel 12hr active Not Available Not Available Not Available Vigamox 0.5 % eye drops active Not Available Not Available Not Available Klor-Con M20 mEq tablet,exte nded release active Not Available Not Available Not Available nitrofurant oin monohydrate /macrocryst als 100 mg capsule TAKE 1 CAPSULE BY MOUTH EVERY 12 HOURS FOR 5 DAYS 04/14 completed Not Available Not Available Not Available Aspir-81 07/19 completed Not Available Not Available Not Available Multivitami n 50 Plus 05/03 completed Not Available Not Available Not Available aprepitant 40 mg capsule TAKE 1 CAPSULE BY MOUTH ONCE FOR 1 DOSE. TAKE AT 8 PM PRIOR TO SURGERY 08/10 completed Not Available Not Available Not Available Advair HFA 115 mcg-21 mcg/actuati on aerosol inhaler Inhale 2 puffs twice a day by inhalatio n route as directed for 30 days. 08/10 completed Not Available Not Available Not Available Symbicort 160 mcg-4.5 mcg/actuati on HFA aerosol inhaler INHALE 2 PUFFS BY MOUTH TWICE DAILY DIRECTED active Not Available Not Available No t Available Symbicort 80 mcg-4.5 mcg/actuati on HFA aerosol inhaler INHALE 2 PUFFS BY MOUTH TWICE DAILY 05/03 completed Not Available Not Available Not Available peg 3350-electr olytes 236 gram-22.74 gram-6.74 gram-5.86 gram solution USE DIRECTED 02/05 completed Not Available Not Available Not Available FeroSul 325 mg (65 mg iron) tablet TAKE 1 TABLET BY MOUTH TWICE DAILY active Not Available Not Available No t Available cyanocobala min (vit B-12) 500 mcg lozenges DISSOLVE 1 TABLET UNDER THE TONGUE ONCE DAILY 11/23 completed Not Available Not Available Not Available Uloric 40 mg tablet active Not Available Not Available No t Available Uloric 80 mg tablet 07/19 completed Not Available Not Available Not Available Dulera 100 mcg-5 mcg/actuati on HFA aerosol inhaler Inhale 2 puffs twice a day by inhalatio n route as directed for 30 days. 08/10 completed Not Available Not Available Not Available ropivacaine (PF) 5 mg/mL (0.5 %) injection solution Take 3 mL by injection route. 2023 completed Not Available Not Available Not Available Xarelto 15 mg tablet TAKE 1 TABLET BY MOUTH ONCE DAILY WITH FOOD 05/09 completed Not Available Not Available Not Available vitamin E mixed 200 unit tablet Take 1 tablet every day by oral route. 2024 active Not Available Not Available Not Avai lable Procto-Med HC 2.5 % topical cream perineal applicator 05/03 completed Not Available Not Available Not Available turmeric 05/03 completed Not Available Not Available Not Available allopurinol 200 mg tablet Take 2 tablets every day by oral route. 10/24 completed Not Available Not Available Not Available Ozempic 0.25 mg or 0.5 mg (2 mg/3 mL) subcutaneou s pen injector INJECT 0.25MG SUBCUTANE OUSLY ONCE A WEEK DIRECTED FOR 56 DAYS active Not Available Not Available No t Available Vitals Date Recorded Body height Heart rate Oxygen saturation Oxygen saturation in Arterial blood by Pulse oximetry Systolic blood pressure Diastolic blood pressure Provider Name and Address Organization Details Last Updated DateTime 4 193.04 cm 69 /min 98 % 98 % 122 mm[Hg] 72 mm[Hg] Francine Tellez CMA [facility] 4 14:13:40 Date Recorded Body temperature Heart rate Respiratory rate Body mass index (BMI) Body weight Provider Name and Address Organization Details Last Updated DateTime 11/06/2023 97.5 [degF] 69 /min 15 /min 40.2 kg/m2 970037. 48 g Luciano Crawford MD [address], [facility] [address], [place], [address], [facility] 4 14:50:08 Date Recorded Body height Body mass index (BMI) Body weight Heart rate Oxygen saturation Oxygen saturation in Arterial blood by Pulse oximetry Systolic blood pressure Diastolic blood pressure Provider Name and Address Organization Details Last Updated DateTime 4 193.04 cm 40.2 kg/m2 741726. 48 g 70 /min 99 % 99 % 120 mm[Hg] 70 mm[Hg] ADRIANO Ashton [facility] 4 13:55:22 Date Recorded Body height Body mass index (BMI) Body weight Heart rate Body temperature Heart rate Respiratory rate Oxygen saturation Oxygen saturation in Arterial blood by Pulse oximetry Systolic blood pressure Diastolic blood pressure Provider Name and Address Organization Details Last Updated DateTime 4 193.04 cm 41.5 kg/m2 677559 g 62 /min 98 [degF] 62 /min 18 /min 97 % 97 % 100 mm[Hg] 64 mm[Hg] Stephanie Chopra MA [facility] [employer] [facility] 4 14:35:27 Date Recorded Body height Heart rate Oxygen saturation Oxygen saturation in Arterial blood by Pulse oximetry Body temperature Body mass index (BMI) Body weight Systolic blood pressure Diastolic blood pressure Provider Name and Address Organization Details Last Updated DateTime 4 193.04 cm 67 /min 97 % 97 % 98.4 [degF] 40.9 kg/m2 590696. 04 g 108 mm[Hg] 66 mm[Hg] Rosalva Huerta MA [facility] [employer] [facility] 4 14:55:36 Date Recorded Heart rate Respiratory rate Provider N clinton and Address Organization Details Last Updated DateTime 05/08/2024 67 /min 17 /min Luciano Crawford MD [address], [place], [address] [facility] 05/08/2024 15:34:08 Date Recorded Body height Body mass index (BMI) Body weight Body temperature Oxygen saturation Oxygen saturation in Arterial blood by Pulse oximetry Systolic blood pressure Diastolic blood pressure Provider Name and Address Organization Details Last Updated DateTime 5 193.04 cm 41.9 kg/m2 213123. 78 g 97.5 [degF] 96 % 96 % 110 mm[Hg] 64 mm[Hg] Rosalva Huerta MA [facility] [employer] [facility] 5 12:46:24 Date Recorded Heart rate Heart rate Respiratory rate Provider Name and Address Organization Details Last Updated DateTime 07/17/2024 61 /min 61 /min 15 /min Luciano Crawford MD [address], [address], [place], [address], [facility] [employer] [facility] 07/17/2024 13:00:39 Social History Question Answer Notes LastModified by Organizat ion Details LastModified Time Tobacco Smoking Status Former Smoker quit 1985 JENNIFER Hackett - [place] [employer] [facility] 03/08/2023 13:49:44 What Is Your Level Of Alcohol Consumption? None [id number] Information not available 07/12/2022 What Is Your Level Of Caffeine Consumption? Occasional Information not available 05/09/2023 How Much Tobacco Do You Chew? None [id number] Information not available 07/12/2022 In The 14 Days Before Symptom Onset, Have You Had Close Contact With A Laboratory-confir med COVID-19 While That Case Was Ill? No [email or web address] Information not available 03/08/2023 In The 14 Days Before Symptom Onset, Have You Had Close Contact With A Person Who Is Under Investigation For COVID-19 While That Person Was Ill? No [email or web address] Information not available 03/08/2023 Are You Currently Employed? No Information not available 05/08/2024 What Type Of Diet Are You Following? REGULAR Trying To Lose Weight/low er Carb And Sugar/low Calorie Information not available 05/09/2023 Which Illicit Or Recreational Drugs Have You Used? None [email or web address] Information not available 03/08/2023 Do You Or Have You Ever Used E-cigarettes Or Vape? Never Used Electronic Cigarettes [email or web address] Information not available 03/08/2023 Do You Have An Electrostatic Air Filter? No Information not available 05/09/2023 When Did You Quit Smoking? 16+yearssince lastcigarette Information not available 06/18/2023 Do You Have A Humidifier? No Information not available 05/09/2023 Where Do You Live? Apartment Information not available 06/18/2023 Do You Have Moisture Problems In Your Home? No Information not available 05/09/2023 What Was The Date Of Your Most Recent Tobacco Screening? 07/17/2024 Information not available 07/17/2024 Do You Have Any Pets? No Information not available 05/09/2023 Do You Use Your Seat Belt Or Car Seat Routinely? Yes Information not available 05/09/2023 Do You Have Smoke And Carbon Monoxide Detectors In Your Home? Yes Information not available 05/09/2023 Are You Passively Exposed To Smoke? No Information no t available 05/09/2023 Do You Or Have You Ever Used Smokeless Tobacco? Never Used Smokeless Tobacco [id number] Information not available 07/12/2022 Do You Feel Stressed (tense, Restless, Nervous, Or Anxious, Or Unable To Sleep At Night)? [id number] Information not available 06/18/2023 Do You Use Any Illicit Or Recreational Drugs? No Information not available 06/18/2023 Do You Use Sunscreen Routinely? No Information not available 05/09/2023 Have You Recently Traveled Abroad? No Information not available 05/09/2023 Do You Have Any Dietary Restrictions? No Information not available 05/09/2023 Do You Or Have You Ever Used Any Other Forms Of Tobacco Or Nicotine? Yes Long Time Ago Information not available 06/18/2023 Sex: Unknown Functional Status Question Answer Note LastModified by Organization D etails LastModified Time What is your exercise level? None Information not available 05/09/2023 Mental Status None recorded. Family History Relationship Description Onset Age of this Age Resolved Age Notes LastModified by Organization Details LastModified Time Father Heart disease [email or web address] Not available 2022 11:21:44 Father Family history of stroke [email or web address] Not available 2023 13:49:16 Father Hypertensive disorder [email or web address] Not available 2022 11:22:17 Father Diabetes mellitus Not available 2022 11:22:26 Mother Family history of malignant neoplasm [email or web address] Not available 2023 13:49:16 Mother Hypertensive disorder [email or web address] Not available 2022 11:22:17 Mother Diabetes mellitus Not available 2022 11:22:26 Medical History Condition Response ARTHRITIS Y USE OF BLOOD THINNERS Y SKIN PROBLEMS Y DIABETES, TYPE Y BLOOD CLOTS Y GOUT Y HAVE YOU BEEN HOSPITALIZED OR SEEN IN [facility] IN THE PAST YEAR ? Y ULCERS Y HEART DISEASE/HEART PROBLEMS Y HYPERTENSION Y URINARY/BLADDER/KIDNEY PROBLEMS Y Immunizations Vaccine Type Date Status Note Provider Nam e and Address Organization Details Recorded Time COVID-19, mRNA, LNP-S, PF, 100 mcg/0.5mL dose or 50 mcg/0.25mL dose 11/08/2020 completed Not Available [facility] 3 00:46:34 COVID-19, mRNA, LNP-S, PF, 100 mcg/0.5mL dose or 50 mcg/0.25mL dose 10/08/2020 completed Not Available [facility] 3 00:46:34 Past Encounters Encounter ID Performer Location Encounter Start Date Encounter Closed Date Diagnosis/Indication Diagnosis SNOMED-CT Code Diagnosis ICD10 Code Diagnosis Note [id number] [facility] [address] [address] 07/19/2020 00:00:00 07/19/2020 16:21:09 [id number] [facility] [address] [address] 10/07/2020 00:00:00 10/07/2020 12:57:24 [id number] [facility] [place] [address] [place] [address] 10/14/2020 00:00:00 10/14/2020 16:32:32 [id number] [facility] [place] [address] [place] [address] 12/01/2020 00:00:00 12/01/2020 18:59:08 [id number] [facility] [place] [address] [place] [address] 02/22/2021 00:00:00 02/22/2021 15:43:15 [id number] [facility] [place] [address] [place] [address] 04/19/2021 00:00:00 04/19/2021 17:38:59 [id number] [facility] [place] [address] [place] [address] 04/14/2022 00:00:00 04/16/2022 14:55:56 [id number] GILMA Corrigan [facility] [address] [place] [address] 08/10/2022 10:46:42 08/10/2022 12:33:11 Pain of bilateral knee joints 1378457367 94964 M25.561 M25.562 [id number] GILMA Corrigan [facility] [address] [place] [address] 08/24/2022 14:31:54 08/24/2022 14:50:28 Pain of left knee joint [id number] 99310 M25.562 [id number] Kristin Bullard, [employer]- [facility] [place] [address] [place] [address] 10/13/2022 14:04:39 10/13/2022 14:52:54 Obstructive sleep apnea syndrome 03920790 G47.33 I do not have access to studyOrigi nal set up 09/12/16Ne w machine 08/12/21Ma chine linked per DME with 100% use greater than 4 hoursHe remains on PAP 18 [id number] is 10.5, significan tly improvedES S 10OSA is well correctedE ncouraged 100% compliance with all sleepFollo w with PCM for labsAdvise d good sleep habits and patterns:- Set a goal for at least 7 to 8 hours of sleep time per day.-Use the bed mainly for sleep and to go to bed only when tired. If unable to fall asleep after 30 minutes, patient should get out of bed but should not engage in any activity that requires sustained mental alertness. -Maintain a regular bedtime and wake-up time even on weekends-A void excessive naps during the daytime. If a nap is necessary, limit it to no more than 30 minutes.-M inimize environmen jony noise, bright lights, and extremes in bedroom temperatur e.-Avoid alcohol, caffeinate d beverages, and nicotine products for at least 6 hours prior to bedtime.-A void strenuous exercise and large meals for at least 4 hours prior to bedtime.Do wnload in 6 months, PRN for concerns Asthma 400694416 J45.90 9 CBC, IGE, RAST normal.PFT 09/2020 with normal FEV1 and ratio, significan t bronchodil ator response.C ontinue Dulera BID and albuterol PRN.Review ed indication s for useInstruc kevin on technique today Morbid obesity 183455764 E66.01 He continues to lose weight through diet and exercisePr evious bariatric procedureH ealthy well-elijah rome meals and exercise 30 minutes most days of the week. [id number] GILMA Corrigan [facility] [address] [address] 11/23/2022 13:45:15 11/23/2022 14:45:36 Osteoarthritis of left knee joint 8313747280 38738 M17.12 [id number] GILMA Corrigan [facility] [address] [address] 12/07/2022 13:23:00 12/07/2022 14:51:35 Osteoarthritis of left knee joint 2914000502 64884 M17.12 [id number] GILMA Corrigan [facility] [address] [address] 03/08/2023 13:45:41 03/08/2023 14:49:21 Osteoarthritis of knee 413773563 M17.11 [id number] GILMA Corrigan [facility] [address] [address] 03/22/2023 14:00:35 03/22/2023 15:15:48 Osteoarthritis of left knee joint 4951518974 28060 M17.12 [id number] Kristin Bullard, [employer]-BC [facility] [place] [address] [place] [address] 03/30/2023 14:19:25 03/30/2023 15:50:43 Obstructive sleep apnea syndrome 82026588 G47.33 I do not have access to studyOrigi nal set up 09/12/16Ne w machine 08/12/21Ma chine linked per DME with 90% use greater than 4 hoursHe remains on PAP 18 [id number] is increased to 28.8, he has a high leak and this is consistent with his past problems of poor mask fitHe is uninterest ed in changing his mask styleEncou raged 100% compliance with all sleepFollo w with PCM for labsAdvise d good sleep habits and patterns:- Set a goal for at least 7 to 8 hours of sleep time per day.-Use the bed mainly for sleep and to go to bed only when tired. If unable to fall asleep after 30 minutes, patient should get out of bed but should not engage in any activity that requires sustained mental alertness. -Maintain a regular bedtime and wake-up time even on weekends-A void excessive naps during the daytime. If a nap is necessary, limit it to no more than 30 minutes.-M inimize environmen jony noise, bright lights, and extremes in bedroom temperatur e.-Avoid alcohol, caffeinate d beverages, and nicotine products for at least 6 hours prior to bedtime.-A void strenuous exercise and large meals for at least 4 hours prior to bedtime.He should follow up with sleep MD in the next 6-8 weeks Asthma 141559882 J45.90 9 CBC, IGE, RAST normal.PFT 09/2020 with normal FEV1 and ratio, significan t bronchodil ator response.C ontinue Symbicort 80 BID and albuterol PRN with aerochambe r.Reviewed indication s for useInstruc kevin on technique todayAdvis ed vaccines this fall [id number] Luciano Crawford MD [facility] [place] [address] [facility] [address] [place] [address] 05/09/2023 14:51:40 05/09/2023 16:31:26 Dyspnea on exertion 91733540 R06.09 R05.9 T78.40XA D89.9 J45.30 Obstructiv e sleep apnea syndrome 34145731 G47.33 G47.36 G47.61 G47.30 [id number] GILMA Corrigan [facility] [address] [address] 06/07/2023 13:55:08 06/08/2023 10:25:17 Osteoarthritis of right knee joint 8207118572 [id number] M17.11 [id number] Luciano Crawford MD [facility] [address] [place] [address] 0 06/18/2023 15:39:51 06/19/2023 08:43:57 Obstructive sleep apnea syndrome 41739575 G47.33 G47.36 G47.61 G47.30 [id number] [facility] [address] [place] [address] 9 06/21/2023 13:34:12 06/25/2023 10:35:36 Pain of left knee joint 7912471833 15662 M25.790 [id number] Luciano Crawford MD [facility] [address] [place] [address] 0 07/19/2023 10:05:46 07/20/2023 08:52:09 Obstructive sleep apnea syndrome 40029627 G47.33 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 D50.8 E83.42 [id number] Luciano Crawford MD [facility] [address] [place] [address] 0 08/06/2023 14:21:34 08/07/2023 08:14:15 Obstructive sleep apnea syndrome [id number] G47.33 Asthma [id number] J45.90 9 Vitamin E deficiency 541 02074 E56.0 Iron deficiency 50779341 E61.1 [id number] Luciano Crawford MD [facility] [address] [place] [address] 0 11/06/2023 13:54:15 11/08/2023 08:46:58 Obstructive sleep apnea syndrome [id number] G47.33 Asthma [id number] J45.90 9 Vitamin E deficiency 541 67803 E56.0 Iron deficiency 28776237 E61.1 [id number] Rebekah Archer MD [facility] [place] [address] [address] 12/12/2023 13:49:09 12/12/2023 14:19:31 Altered bowel function 55031553 R19.4 [id number] [place] [address] 0 02/06/2024 14:11:02 02/14/2024 11:37:48 Obstructive sleep apnea syndrome [id number] G47.33 Asthma 746123080 J45.90 9 Vitamin E deficiency 541 85520 E56.0 Iron deficiency 30264732 E61.1 [id number] Luciano rCawford MD [place] [address] 0 05/08/2024 14:18:10 05/12/2024 11:24:44 Obstructive sleep apnea syndrome 46947178 G47.33 Vitamin E deficiency 541 52250 E56.0 Iron deficiency 87694232 E61.1 Mild persi stent asthma [id number] J45.30 [id number] Luciano Crawford MD [facility] [address] [place] [id number] 07/17/2024 12:32:07 07/17/2024 14:09:21 Obstructive sleep apnea syndrome [id number] G47.33 Mild persi stent asthma 883871091 J45.30 Vitamin E deficiency 541 12244 E56.0 Iron deficiency 50799347 E61.1 Health Concerns Section Related Observation LastModified by Organization Detai ls LastModified Time None Recorded Concern Status LastModified by Organization Details LastModified Time None Recorded Advance Directives Directive None Recorded Payers Encounter Date Sequence Insurance Name Policy Number Policy Kang Covered Member ID Kang Member ID Guarantor Name 11/06/2023 1 [facility] (MEDICARE REPLACEMENT/AD VANTAGE - PPO) [id number] Jose Guzman [id number] Jose Guzman 11/06/2023 2 [employer] - DUAL (MEDICARE - MEDICAID REPLACEMENT HMO) Jose Guzman [id number] Jose Cadena [place] 12/12/2023 1 [facility] (MEDICARE REPLACEMENT/AD VANTAGE - PPO) [id number] Ray A Willmont [id number] Ray A Willmont 12/12/2023 2 [employer] PREMIER [employer] - DUAL (MEDICARE - MEDICAID REPLACEMENT HMO) Ray A Willmont [id number] Ray A Willmont 02/06/2024 1 [facility] (MEDICARE REPLACEMENT/AD VANTAGE - PPO) [id number] Ray A Willmont [id number] Ray A Willmont 02/06/2024 2 [employer] - PREMIER [employer]AN - DUAL (MEDICARE - MEDICAID REPLACEMENT HMO) Ray A Willmont [id number] Ray A Willmont 05/08/2024 1 [facility] (MEDICARE REPLACEMENT/AD VANTAGE - PPO) [id number] Ray A Willmont [id number] Ray A Willmont 05/08/2024 2 [employer] PREMIER [employer]AN - DUAL (MEDICARE - MEDICAID REPLACEMENT HMO) Ray A Willmont [id number] Ray A Willmont 07/17/2024 1 [facility] (MEDICARE REPLACEMENT/AD VANTAGE - PPO) [id number] Ray A Willmont [id number] Ray A Willmont 07/17/2024 2 [employer] - PREMIER [employer]AN - DUAL (MEDICARE - MEDICAID REPLACEMENT HMO) Ray A Willmont [id number] Ray A Willmont Notes Date Note Type Note Provider Name and Address Organization Details Recorded Time 11/06/2023 text/html Primary care/Ref erring provider: Alanna Shelby MD Patient is here to go over his asthma management. Initial development of shortness of breath: uration of shortness of breath: 3 yearsCondition of shortness of breath: stableTiming of shortness of breath: noneFrequency: up to 3 times a dayLimits activities: yesAggravating factors: walkingAlleviating factors: rest Modified [employer] [place] (mMRC) Dyspnea Scale - Grade 2Grade 0 I only get breathless with strenuous exercise .Grade 1 I get short of breath when hurrying on the level or walking up a slight hill .Grade 2 I walk slower than people of the same age on the level because of breathlessness or have to stop for breath when walking at my own pace on the level .Grade 3 I stop for breath after walking about 100 yards or after a few minutes on the level .Grade 4 I am too breathless to leave the house or I am breathless when dressing . Treatment history: Albuterol HFA as needed since 2020 Budesonide-formoterol 80/4.5 mcg 2 puffs BID [id number]-ic rmoterol 160/4.5 mcg 2 puffs BID since 2022 Other symptoms:Drooling: noDysarthria: noNeck pain: noOdynophagia: noDysphagia: noWeak mastication: noFacial weakness: noNasal speech: noProtruding tongue: noProductive cough: noWheezing: noChest tightness: yesOrthopnea: noFrequent throat clearing or swallowing: noPalpitations: noHeartburn: noEdema: yes Environmental exposures:Nicotine smoke: 2.5 ppd 8343-7927 = 20 pack yearsPaint: noDye: noDust mites: yesMold: noDamp basement: noWood burning stove: noAnimal dander: noCockroaches: noPollen: yesArsenic: noAsbestos: noBeryllium: noCadmium: noChromium: noCoal smoke: noDiesel fumes: noNickel: noSilica: noSoot: noDuring the [facility] split night sleep study on 11/06/05, AHI = 32, CPAP @ 8 cmH2O was initially applied. He was later adjusted to 18 cmH2O and this is still not effective. During the BPAP titration study on 07/11/23, PLMI = 102. At home since 08/08/23, the patient uses a [employer]Med AirCurve 10 autoset unit with heated humidification. The patient does not need the ramp to start low and go up slowly on the pressure anymore. There is some xerostomia in a.m. There is no hose/mask condensation with water.The patient wears a [employer] large Stalin full face mask without chin strap. There is no claustrophobia, no nostril/nose bridge irritation, no facial rash, no facial numbness, no nosebleeding. The patient feels more refreshed upon waking and daytime alertness is improved. Energy levels are sustained until noon. At home, the patient sleeps from 11 pm to 8 am and wakes up by healthcare spectrographic analyst. Snoring: heavy, since 1960s.Snorting: yesChoking: noCoughing: noGasping: noGagging: noSighing: noWitnessed apnea: yesTwitching or jerking of leg(s), arm(s), body, head: yesTeeth grinding: noTeeth clenching: noSleeptalking: noSleepwalking: noSleep crying: noBedwetting: noTongue/lip/gum/cheek biting: yesSleeping with open mouth: yesSleep paralysis: noHypnagogic hallucinations: noHypnopompic hallucinations: noVivid dreams: yesDifficulty with sleep onset: yesDifficulty with sleep maintenance: yesSleep interruptions: nocturia x 6Patient wakes up with: fatigue, xerostomia, cognitive impairment, mobility impairment, dexterity impairmentDaytime cataplexy: noMorning hypersomnolence: yesAfternoon hypersomnolence: yesCaffeine sources in diet: tea 3 glasses per day, chocolate 3 candy bars per day Associated medical and psychiatric conditions:Congestive heart failure: noCoronary artery disease: noMyocardial infarction: noHypertension: noStroke: noBronchial asthma: noChronic obstructive pulmonary disease: noDepression: yesBipolar disorder: noAnxiety: yesPanic disorder: noPosttraumatic stress disorder: noAttention deficit and hyperactivity disorder: noObsessive Compulsive disorder: yesSchizophrenia: noSchizoaffective disorder: noPersonality disorder: noChronic analgesic use: noChronic sedative/hypnotic use: no EPWORTH SLEEPINESS SCALE (ESS) CHANCE OF DOZING SCORE0 = would never doze1 = slight chance of dozing2 = moderate chance of dozing3 = high chance of dozing SITUATION AND CHANCE OF DOZINGSitting and reading - 1Watching television - 3Sitting inactive in a public place (e.g. a theater or meeting) - 2As a passenger in a car for an hour without a break - 3Lying down to rest in the afternoon when circumstances permit - 3Sitting and talking to someone - 1Sitting quietly after lunch without alcohol - 2In a car, while stopped for a few minutes in the traffic - 2TOTAL SCORE 17Subjectively, patient has a high chance of dozing. Luciano Crawford MD [address] [facility], [facility] [address], [place], [address], [facility] [employer] [facility] 11/06/2023 14:51:37 12/12/2023 text/html MAXX WAS SEEN IN THE OFFICE TODAY FOR EVALUATION . PT IS C/O CONSTIPATION . BMs ARE EVERY DAY WITH A DAILY LAXATIVE. GRADE 1/2 ON THE BSS. PT ADMITS TO PUSHING /STRAINING. PT IS IN W WHEEL CHAIR. C/O LBP AND SPASM. HEIS S/P BARIATRIC WT LOSS SURGERY IN 2020. PT WT WENT FROM 579 TO 330 TODAY. LAST COLON WAS 2014. Rebekah Archer MD [address], [facility] [address], [place], [address], [facility] [employer] [facility] 12/12/2023 14:22:32 02/06/2024 text/html Primary care/Ref erring provider: Alanna Shelby MD Patient is here to go over his asthma management. Initial development of shortness of breath: uration of shortness of breath: 3 yearsCondition of shortness of breath: stableTiming of shortness of breath: noneFrequency: up to 3 times a dayLimits activities: yesAggravating factors: walkingAlleviating factors: rest Modified [employer] [place] (mMRC) Dyspnea Scale - Grade 2Grade 0 I only get breathless with strenuous exercise .Grade 1 I get short of breath when hurrying on the level or walking up a slight hill .Grade 2 I walk slower than people of the same age on the level because of breathlessness or have to stop for breath when walking at my own pace on the level .Grade 3 I stop for breath after walking about 100 yards or after a few minutes on the level .Grade 4 I am too breathless to leave the house or I am breathless when dressing . Treatment history: Albuterol HFA as needed since 2020 Budesonide-formoterol 80/4.5 mcg 2 puffs BID [id number]-ug rmoterol 160/4.5 mcg 2 puffs BID since 2023 Other symptoms:Drooling: noDysarthria: noNeck pain: noOdynophagia: noDysphagia: noWeak mastication: noFacial weakness: noNasal speech: noProtruding tongue: noProductive cough: noWheezing: noChest tightness: yesOrthopnea: noFrequent throat clearing or swallowing: noPalpitations: noHeartburn: noEdema: yes Environmental exposures:Nicotine smoke: 2.5 ppd 1116-2432 = 20 pack yearsPaint: noDye: noDust mites: yesMold: noDamp basement: noWood burning stove: noAnimal dander: noCockroaches: noPollen: yesArsenic: noAsbestos: noBeryllium: noCadmium: noChromium: noCoal smoke: noDiesel fumes: noNickel: noSilica: noSoot: noDuring the [place] split night sleep study on 11/06/05, AHI = 32, CPAP @ 8 cmH2O was initially applied. He was later adjusted to 18 cmH2O and this is still not effective. During the BPAP titration study on 07/11/23, PLMI = 102. At home since 11/06/23, the patient uses a ResMed AirCurve 10 autoset unit with heated humidification. The patient does not need the ramp to start low and go up slowly on the pressure anymore. There is some xerostomia in a.m. There is no hose/mask condensation with water.The patient wears a [employer] large Stalin full face mask without chin strap. There is no claustrophobia, no nostril/nose bridge irritation, no facial rash, no facial numbness, no nosebleeding. The patient feels more refreshed upon waking and daytime alertness is improved. Energy levels are sustained until noon. At home, the patient sleeps from 11 pm to 8 am and wakes up by healthcare spectrographic analyst. Snoring: heavy, since 1960s.Snorting: yesChoking: noCoughing: noGasping: noGagging: noSighing: noWitnessed apnea: yesTwitching or jerking of leg(s), arm(s), body, head: yesTeeth grinding: noTeeth clenching: noSleeptalking: noSleepwalking: noSleep crying: noBedwetting: noTongue/lip/gum/cheek biting: yesSleeping with open mouth: yesSleep paralysis: noHypnagogic hallucinations: noHypnopompic hallucinations: noVivid dreams: yesDifficulty with sleep onset: yesDifficulty with sleep maintenance: yesSleep interruptions: nocturia x 6Patient wakes up with: fatigue, xerostomia, cognitive impairment, mobility impairment, dexterity impairmentDaytime cataplexy: noMorning hypersomnolence: yesAfternoon hypersomnolence: yesCaffeine sources in diet: tea 3 glasses per day, chocolate 3 candy bars per day Associated medical and psychiatric conditions:Congestive heart failure: noCoronary artery disease: noMyocardial infarction: noHypertension: noStroke: noBronchial asthma: noChronic obstructive pulmonary disease: noDepression: yesBipolar disorder: noAnxiety: yesPanic disorder: noPosttraumatic stress disorder: noAttention deficit and hyperactivity disorder: noObsessive Compulsive disorder: yesSchizophrenia: noSchizoaffective disorder: noPersonality disorder: noChronic analgesic use: noChronic sedative/hypnotic use: no EPWORTH SLEEPINESS SCALE (ESS) CHANCE OF DOZING SCORE0 = would never doze1 = slight chance of dozing2 = moderate chance of dozing3 = high chance of dozing SITUATION AND CHANCE OF DOZINGSitting and reading - 1Watching television - 2Sitting inactive in a public place (e.g. a theater or meeting) - 2As a passenger in a car for an hour without a break - 2Lying down to rest in the afternoon when circumstances permit - 3Sitting and talking to someone - 1Sitting quietly after lunch without alcohol - 1In a car, while stopped for a few minutes in the traffic - 1TOTAL SCORE 13Subjectively, patient has a moderate chance of dozing. Luciano Crawford MD [address] [place] [address], [facility] [address], [place], [address], [place] [facility] [employer] 03/02/2024 15:49:34 05/08/2024 text/html Primary care/Ref erring provider: Alanna Shelby MD Patient is here to go over his asthma management. Initial development of shortness of breath: uration of shortness of breath: 3 yearsCondition of shortness of breath: stableTiming of shortness of breath: noneFrequency: up to 3 times a dayLimits activities: yesAggravating factors: walkingAlleviating factors: rest Modified [employer] [place] (mMRC) Dyspnea Scale - Grade 2Grade 0 I only get breathless with strenuous exercise .Grade 1 I get short of breath when hurrying on the level or walking up a slight hill .Grade 2 I walk slower than people of the same age on the level because of breathlessness or have to stop for breath when walking at my own pace on the level .Grade 3 I stop for breath after walking about 100 yards or after a few minutes on the level .Grade 4 I am too breathless to leave the house or I am breathless when dressing . Treatment history: Albuterol HFA as needed since 2020 Budesonide-formoterol 80/4.5 mcg 2 puffs BID [id number]-rx rmoterol 160/4.5 mcg 2 puffs BID since 2022 Other symptoms:Drooling: noDysarthria: noNeck pain: noOdynophagia: noDysphagia: noWeak mastication: noFacial weakness: noNasal speech: noProtruding tongue: noProductive cough: noWheezing: noChest tightness: yesOrthopnea: noFrequent throat clearing or swallowing: noPalpitations: noHeartburn: noEdema: yes Environmental exposures:Nicotine smoke: 2.5 ppd 7102-7050 = 20 pack yearsPaint: noDye: noDust mites: yesMold: noDamp basement: noWood burning stove: noAnimal dander: noCockroaches: noPollen: yesArsenic: noAsbestos: noBeryllium: noCadmium: noChromium: noCoal smoke: noDiesel fumes: noNickel: noSilica: noSoot: noDuring the [facility] split night sleep study on 11/06/05, AHI = 32, CPAP @ 8 cmH2O was initially applied. He was later adjusted to 18 cmH2O and this is still not effective. During the BPAP titration study on 07/11/23, PLMI = 102. At home since 11/06/23, the patient uses a [employer]Med AirCurve 10 autoset unit with heated humidification. The patient does not need the ramp to start low and go up slowly on the pressure anymore. There is some xerostomia in a.m. There is no hose/mask condensation with water.The patient wears a [employer] large Stalin full face mask without chin strap. There is no claustrophobia, no nostril/nose bridge irritation, no facial rash, no facial numbness, no nosebleeding. The patient feels more refreshed upon waking and daytime alertness is improved. Energy levels are sustained until noon. At home, the patient sleeps from 11 pm to 8 am and wakes up by healthcare spectrographic analyst. Snoring: heavy, since 1960s.Snorting: yesChoking: noCoughing: noGasping: noGagging: noSighing: noWitnessed apnea: yesTwitching or jerking of leg(s), arm(s), body, head: yesTeeth grinding: noTeeth clenching: noSleeptalking: noSleepwalking: noSleep crying: noBedwetting: noTongue/lip/gum/cheek biting: yesSleeping with open mouth: yesSleep paralysis: noHypnagogic hallucinations: noHypnopompic hallucinations: noVivid dreams: yesDifficulty with sleep onset: yesDifficulty with sleep maintenance: yesSleep interruptions: nocturia x 6Patient wakes up with: fatigue, xerostomia, cognitive impairment, mobility impairment, dexterity impairmentDaytime cataplexy: noMorning hypersomnolence: yesAfternoon hypersomnolence: yesCaffeine sources in diet: tea 3 glasses per day, chocolate 3 candy bars per day Associated medical and psychiatric conditions:Congestive heart failure: noCoronary artery disease: noMyocardial infarction: noHypertension: noStroke: noBronchial asthma: noChronic obstructive pulmonary disease: noDepression: yesBipolar disorder: noAnxiety: yesPanic disorder: noPosttraumatic stress disorder: noAttention deficit and hyperactivity disorder: noObsessive Compulsive disorder: yesSchizophrenia: noSchizoaffective disorder: noPersonality disorder: noChronic analgesic use: noChronic sedative/hypnotic use: no EPWORTH SLEEPINESS SCALE (ESS) CHANCE OF DOZING SCORE0 = would never doze1 = slight chance of dozing2 = moderate chance of dozing3 = high chance of dozing SITUATION AND CHANCE OF DOZINGSitting and reading - 0Watching television - 2Sitting inactive in a public place (e.g. a theater or meeting) - 1As a passenger in a car for an hour without a break - 2Lying down to rest in the afternoon when circumstances permit - 3Sitting and talking to someone - 0Sitting quietly after lunch without alcohol - 2In a car, while stopped for a few minutes in the traffic - 1TOTAL SCORE 11Subjectively, patient has a moderate chance of dozing. Luciano Crawford MD [address] [place] [address], [id number], [place] [facility] [employer] [facility] 05/08/2024 15:40:19 07/17/2024 text/html Primary care/Ref erring provider: Alanna Shelby MD Patient is here to go over his asthma management. Initial development of shortness of breath: uration of shortness of breath: 4 yearsCondition of shortness of breath: stableTiming of shortness of breath: noneFrequency: up to 3 times a dayLimits activities: yesAggravating factors: walkingAlleviating factors: rest Modified [employer] [place] (mMRC) Dyspnea Scale - Grade 2Grade 0 I only get breathless with strenuous exercise .Grade 1 I get short of breath when hurrying on the level or walking up a slight hill .Grade 2 I walk slower than people of the same age on the level because of breathlessness or have to stop for breath when walking at my own pace on the level .Grade 3 I stop for breath after walking about 100 yards or after a few minutes on the level .Grade 4 I am too breathless to leave the house or I am breathless when dressing . Treatment history: Albuterol HFA as needed since 2020 Budesonide-formoterol 80/4.5 mcg 2 puffs BID [id number]-vl rmoterol 160/4.5 mcg 2 puffs BID since 2022 Other symptoms:Drooling: noDysarthria: noNeck pain: noOdynophagia: noDysphagia: noWeak mastication: noFacial weakness: noNasal speech: noProtruding tongue: noProductive cough: noWheezing: noChest tightness: yesOrthopnea: noFrequent throat clearing or swallowing: noPalpitations: noHeartburn: noEdema: yes Environmental exposures:Nicotine smoke: 2.5 ppd 6862-9037 = 20 pack yearsPaint: noDye: noDust mites: yesMold: noDamp basement: noWood burning stove: noAnimal dander: noCockroaches: noPollen: yesArsenic: noAsbestos: noBeryllium: noCadmium: noChromium: noCoal smoke: noDiesel fumes: noNickel: noSilica: noSoot: no CC: I have dry mouth during the daytime. During the [facility] split night sleep study on 11/06/05, AHI = 32, CPAP @ 8 cmH2O was initially applied. He was later adjusted to 18 cmH2O and this is still not effective. During the BPAP titration study on 07/11/23, PLMI = 102. At home since 05/08/24, the patient uses a [employer] AirCurve 10 autoset unit with heated humidification. The patient does not need the ramp to start low and go up slowly on the pressure anymore. There is some xerostomia in a.m. There is no hose/mask condensation with water.The patient wears a [employer] large Stalin full face mask without chin strap. There is no claustrophobia, no nostril/nose bridge irritation, no facial rash, no facial numbness, no nosebleeding. The patient feels more refreshed upon waking and daytime alertness is improved. Energy levels are sustained until noon. At home, the patient sleeps from 11 pm to 8 am and wakes up by healthcare spectrographic analyst. Snoring: heavy, since 1960s.Snorting: yesChoking: noCoughing: noGasping: noGagging: noSighing: noWitnessed apnea: yesTwitching or jerking of leg(s), arm(s), body, head: yesTeeth grinding: noTeeth clenching: noSleeptalking: noSleepwalking: noSleep crying: noBedwetting: noTongue/lip/gum/cheek biting: yesSleeping with open mouth: yesSleep paralysis: noHypnagogic hallucinations: noHypnopompic hallucinations: noVivid dreams: yesDifficulty with sleep onset: yesDifficulty with sleep maintenance: yesSleep interruptions: nocturia x 6Patient wakes up with: fatigue, xerostomia, cognitive impairment, mobility impairment, dexterity impairmentDaytime cataplexy: noMorning hypersomnolence: yesAfternoon hypersomnolence: yesCaffeine sources in diet: tea 3 glasses per day, chocolate 3 candy bars per day Associated medical and psychiatric conditions:Congestive heart failure: noCoronary artery disease: noMyocardial infarction: noHypertension: noStroke: noBronchial asthma: noChronic obstructive pulmonary disease: noDepression: yesBipolar disorder: noAnxiety: yesPanic disorder: noPosttraumatic stress disorder: noAttention deficit and hyperactivity disorder: noObsessive Compulsive disorder: yesSchizophrenia: noSchizoaffective disorder: noPersonality disorder: noChronic analgesic use: noChronic sedative/hypnotic use: no EPWORTH SLEEPINESS SCALE (ESS) CHANCE OF DOZING SCORE0 = would never doze1 = slight chance of dozing2 = moderate chance of dozing3 = high chance of dozing SITUATION AND CHANCE OF DOZINGSitting and reading - 1Watching television - 2Sitting inactive in a public place (e.g. a theater or meeting) - 2As a passenger in a car for an hour without a break - 2Lying down to rest in the afternoon when circumstances permit - 3Sitting and talking to someone - 1Sitting quietly after lunch without alcohol - 2In a car, while stopped for a few minutes in the traffic - 1TOTAL SCORE 14Subjectively, patient has a moderate chance of dozing. Luciano Crawford MD [address] [place] [address], [phone], [place] [facility] [employer] [facility] 07/17/2024 13:00:54
--- OUTSIDE RECORDS SUMMARY | 2024-08-14 15:38 | XMS_ITS | Clinical Summary ---
Author Organization [facility] [employer] Address [address] [place] [address] Care Team Providers Care Sales Floor Team Member Name Role Phone Alanna Edward MD Primary Care Provider Source Comments [facility] [employer],non-owned Affiliates and Associated Physician Practices is amultiple site organization consisting of ambulatory clinics and hospital sitesin [place], [place], [place] and [place]. This disclosure is being madepursuant to the Care Everywhere program and may not contain all information available regarding this patient. Last updated 18.[facility] [employer] Allergies No known active allergies Medications * [...] cholesterol 08/26/2010 Gout 08/26/2010 Overview (02/11/2015): Old [place] (myocardial infarction) 08/26/2010 Arthropathies 08/26/2010 Low back pain 08/26/2010 GERD (gastroesophageal reflux disease) 1 Hiatal hernia 08/26/2010 Anxiety 08/26/2010 OCD (obsessive compulsive disorder) 08/26/2010 Depression 08/26/2010 GABRIELLE (obstructive sleep apnea) 08/26/2010 Personal history of thromboembolic disease 08/26 Encounters Date Type Department Care Team Description 06/16/2024 2:30 PM BUSINESS UNIT MANAGER Office Visit [facility] - Urology [address] [place] [address] Varghese Yen MD Benign prostatic hyperplasia with [...] Comments Blood Pressure 118/70 06/16/2024 1:47 PM BUSINESS UNIT MANAGER Pulse 64 06/16/2024 1:47 PM BUSINESS UNIT MANAGER Temperature 36.3 C (97.3 F) 06/16/2024 1:47 PM BUSINESS UNIT MANAGER Respiratory Rate 17 06/16/2024 1:47 PM BUSINESS UNIT MANAGER Oxygen Saturation 94% 06/16/2024 1:47 PM BUSINESS UNIT MANAGER Inhaled Oxygen Concentration - - Weight 147.4 kg (325 lb) 06/16/2024 1:47 PM BUSINESS UNIT MANAGER Height 193 cm (6' 4 ) 06/16/2024 1:47 PM BUSINESS UNIT MANAGER Body Mass Index 39.56 06/16/2024 1:47 PM BUSINESS UNIT MANAGER Plan of Treatment Upcoming Encounters Date Type Department Care Team (Late st Contact Info) Description 06/15/2025 2:30 PM BUSINESS UNIT MANAGER Office Visit [facility] - Urology [address] [place] [address] Varghese Yen MD [address] [facility] [address] [place] [address] Health Maintenance Due Date Last Done Comments [...] - 2023-2 5 season) 2024 11/08/2020, 10/08/2020 DEPRESSION SCREENING 05/14/2024 MEDICARE AWV CALENDAR YEAR 2024 INFLUENZA VACCINE (Season Ended) 2025 HEPATITIS B VACCINE Aged Out No longe [...] age to complete this topic Care Teams Sales Floor Team Member Relationship Specialty Start Date End Date Alanna Edward MD [address] [place] [address] [phone] PCP - General 06/07/21
--- OUTSIDE RECORDS SUMMARY | 2024-08-14 15:38 | XMS_ITS | Referral Summary ---
Author Organization [place] [id number] [facility] Address [address] [place] [address] Care Team Providers Care Radio Program Checker Name Role Phone Alanna Edward MD Primary Care Provider Encounters Date Type Department Care Team Description 06/27/2024 11:30 AM PHOTOGRAPHY EDITOR Clinical Support [facility] Diabetes and Nutrition [facility] [address] Morbid obesity (HCC) (Primary [...] (07/22/2021): Added automatically from request for surgery [id number] Essential hypertension 03/09/2021 Mixed hyperlipidemia 03/09/2021 Arthralgia [...] Sexual Orientation Straight 06/09/2020 6: 52 PM PHOTOGRAPHY EDITOR Last Filed Vital Signs Vital Sign Reading Time Taken Comments Blood Pressure 138/88 08/22/2021 1:24 PM CDT Pulse 83 08/22/2021 1:24 PM CDT Temperature 36.6 C (97.8 F) 08/22/2021 1:24 PM CDT Respiratory Rate 18 08/15/2021 8:35 AM CDT Oxygen Saturation 98% 08/15/2021 8:3 5 AM CDT Inhaled Oxygen Concentration - - Weight 155.9 kg (343 lb 12.8 oz) 06/27/2024 11:53 AM PHOTOGRAPHY EDITOR scale wt, pt in wheelchair, (wt of chair 58.8 lb, total wt with chair 402.6 lb) Height 190.5 cm (6' 3 ) 06/27/2024 11:5 5 AM PHOTOGRAPHY EDITOR Body Mass Index 42.97 06/27/2024 11:53 AM PHOTOGRAPHY EDITOR Plan of Treatment Not on file Procedures Procedure Name Priority Date/Time Associated Diagnosis Comments EGFR Routine 08/12/2021 10:58 PM CDT POCT HEMOGLOBIN A1C Routine 07/28/2021 2 :56 PM CDT from Last 3 Months or Most Recently Relevant to Health Maintenance Results * (ABNORMAL) eGFR (08/12/2021 10:58 PM CDT) eGFR 72(L) 90 - 130 mL/min/1. 73 m2 [facility] Comment: Interpretive Data Reference Interval Normal >/= [...] ORDERABLES Fin al Result Performing Organization Address [facility] Co de Phone Number [facility] [place] [place] [address] * (ABNORMAL) POCT hemoglobin A1c (07/28/2021 2:56 PM CDT) Hgb A1C, POC 5.9(H) 4.0 - 5.6 % [facility] Est Average Gluc POC 123 mg/dL [facility] Comment: The ADA recommends reporting an estimated Average Glucose (eAG) with all Hemoglobin A1c results using the equation derived from a study of 507 normal and diabetic adults. Minority populations were underrepresented and children were not included. (Diabetes Care 31:2889-8837, 2008). The eAG is not equivalent to a fasting glucose. Blood 07/28/2021 2:56 PM CDT 07/28/2021 2:56 PM CDT us Jason Zuniga MD POINT OF CARE TEST ORDERABLES F inal Result Performing Organization Address [facility] Co de Phone Number [facility] [place] [place] [address] from Last 3 Months or Most Recently Relevant to Health Maintenance Insurance IDCA [facility] MEDICARE [facility] Address: [address] [address] [place] [address] MEDICARE [facility] IDPA [facility] MEDICARE ADVANTAGE [facility] Address: [address] [address] [place] [address] Advance Directives For more information, please contact: [phone] * Full Code (Latest Code Status on File) Date Activated Date Inactivated Comments 08/11/2021 6:57 PM 08/15/2021 7:00 PM Care Teams Radio Program Checker Relationship Specialty Start Date End Date Alanna Edward MD [address] [place] [id number] PCP - General 12/04/16
--- OUTSIDE RECORDS SUMMARY | 2024-08-14 15:38 | XMS_ITS | Clinical Summary ---
Author Organization [facility] Address [address] [place] [address] Care Team Providers Care Plate Glass Grinder Name Role Phone Alanna Edward MD Primary Care Provider [phone] Medications CPAP DME DEVICE CPAP18 HS [id number] n, VentrapragadaActive Ac tive OXYGEN [id number] bleed in with [id number] VentrapragadaActive 06/23/19 17 Active amlodipine 5 [...] 08/26/2010 OCD (obsessive compulsive disorder) 08/26/2010 Old [place] (myocardial infarction) 08/26/2010 Personal history of thromboembolic [...] this topic Insurance MEDICARE MEDICAID Care Teams Plate Glass Grinder Relationship Specialty Start Date End Date Alanna Edward MD [address] [place] [address] PCP - General INTERNAL MEDICINE 08/23/18
--- OUTSIDE RECORDS SUMMARY | 2024-08-14 15:38 | XMS_ITS | Clinical Summary ---
Author Organization [place] [id number] [facility] Address [facility] access [facility] [place] [address] Care Team Providers Care Global Engineering Manager Name Role Phone Alanna Edward MD [...] (07/22/2021): Added automatically from request for surgery [id number] Essential hypertension 03/09/2021 Mixed hyperlipidemia 03/09/2021 Arthralgia 03/09/2021 Type 2 diabetes mellitus wit h hyperglycemia, with long-term current use of insulin 03/09/2021 Morbid obesity (CMS/HCC) 06/14/2020 Foreign body in ear 01/08/2017 Impacted cerumen 01/08/2017 Hearing loss 01/08/2017 Encounters Date Type Department Care Team Description 06/27/2024 11:30 AM DIMENSION MILL WORKER Clinical Support [facility] Diabetes and Nutrition [address] Morbid obesity (HCC) (Primary [...] Sexual Orientation Straight 06/09/2020 6: 52 PM DIMENSION MILL WORKER Obstetrics History Last Filed Vital Signs Vital [...] (343 lb 12.8 oz) 06/27/2024 11:53 AM DIMENSION MILL WORKER scale wt, pt in wheelchair, (wt of chair 58.8 lb, total wt with chair 402.6 lb) Height 190.5 cm (6' 3 ) 06/27/2024 11:5 5 AM DIMENSION MILL WORKER Body Mass Index 42.97 06/27/2024 11:53 AM DIMENSION MILL WORKER Plan of Treatment Health Maintenance Due Date [...] 90 - 130 mL/min/1. 73 m2 [facility] Comment: Interpretive Data Reference Interval Normal [...] ORDERABLES Fin al Result Performing Organization Address City/State/[facility] Co de Phone Number [facility] [place] [address] * (ABNORMAL) POCT hemoglobin A1c (07/28/2021 2:56 PM CDT) Hgb A1C, POC 5.9(H) 4.0 - 5.6 % [facility] Est Average Gluc POC 123 mg/dL [facility] Comment: The ADA recommends reporting an estimated Average Glucose (eAG) with all Hemoglobin A1c results using the equation derived from a study of 507 normal and diabetic adults. Minority populations were underrepresented and children were not included. (Diabetes Care 31:0670-3720, 2008). The eAG is not equivalent to a fasting glucose. Blood 07/28/2021 2:56 PM CDT 07/28/2021 2:56 PM CDT Jason Zuniga MD POINT OF CARE TEST ORDERABLES F inal Result [facility] Department [place] [address] from Last 3 Months or Most Recently Relevant to Health Maintenance Insurance IDPA [facility] MEDICARE ADVANTAGE MEDICARE IDPA [employer]PA [facility] MEDICARE ADVANTAGE Advance Directives For more information, please contact: [phone] * Full Code (Latest Code Status on File) Date Activated Date Inactivated Comments 08/11/2021 6:57 PM 08/15/2021 7:00 PM Care Teams Global Engineering Manager Relationship Specialty [place] [address] [place] [id number] PCP - General 12/04/16
--- OUTSIDE RECORDS SUMMARY | 2024-08-14 15:38 | XMS_ITS | CONTINUITY OF CARE DOCUMENT ---
Author Name leslie, leslie Address Unknown Organization [facility] Address [address] [place] [address] Phone [phone] Care Team Providers Care Assembly Machine Operator Name Role Phone Joe FLOOD, Wei Unavailable AFSANEH FLOOD, EMELYN Unavailable [phone] EMELYN SHELBY MD Unavailable PROBLEMS Condition Status Date Provider Notes SHORTNESS OF BREATH active Tanya Tony idt OBESITY active Tanya Staangelaschmidt DVT active Tanya Blount CAD active Tanya Blount Sleep apnea, obstructive active Wei rosales MD CHF, systolic, chronic active Wei Diaz MD Diabetes, Type 2 active ? Wei Diaz MD Edema, chronic active Wei Diaz MD Family History of Hypertension: active ? Antony Diaz MD Family History of Hypertension: active ? Antony Diaz MD GOUT, CHRONIC active Wei Diaz MD Hyperlipidemia active Wei Diaz MD ENCOUNTERS Date Type Provider Location Encounter Diag nosis - In-person encounter Office Visit Wei Diaz MD [facility] - In-person encounter Office Visit Wei Diaz MD [facility] - In-person encounter Office Visit Wei Diaz MD [facility] - In-person encounter Office Visit Wei Diaz MD [facility] - In-person encounter Office Visit Wei Diaz MD [place] [facility] - In-person encounter Office Visit Wei Diaz MD [place] [facility] - In-person encounter Office Visit Wei Diaz MD [place] [facility] - In-person encounter Office Visit Wei Diaz MD [place] [facility] - In-person encounter Office Visit Wei Diaz MD [place] [facility] - In-person encounter Office Visit Wei Diaz MD [facility] - In-person encounter Office Visit Wei Diaz MD [facility] HyperlipidemiaDiabet es, Type 2 - In-person encounter Office Visit Wei Diaz MD [place] [facility] - In-person encounter Office Visit Wei Diaz MD [place] [facility] - In-person encounter Office Visit Wei Diaz MD [facility] Edema, chronicSleep apnea, obstructiveCHF, systolic, chronic - In-person encounter Office Visit Wei Diaz MD [facility] Family History of Hypertension:Family History of Hypertension: - In-person encounter Office Visit Wei Diaz MD [facility] - In-person encounter Office Visit Wei Diaz MD [facility] - In-person encounter Office Visit Wei Diaz MD [facility] - In-person encounter Office Visit Wei Diaz MD [facility] - In-person encounter Office Visit Wei Diaz MD [facility] - In-person encounter Office Visit Wei Diaz MD [facility] GOUT, CHRONIC - In-person encounter Office Visit Wei Diaz MD [facility] VITAL SIGNS Date Observation Value Provider Body Mass Index (Ratio) 41.12 kg/m2 Antony Diaz MD pulse rate 73 /min Sophie Onsted blood pressure, diastolic 74 mm[Hg] [facility] blood [facility], systolic 124 mm[Hg] Thea liz [place] oxygen saturation, oximetry 98 % [facility] weight E&M 329 [lb_av] Sophie[facility] respiratory rate E&M 16 /min [facility] height E&M 75 [in_i] Sophie[facility] blood pressure, cuff size large An hiram [place] Body Mass Index (Ratio) 40.74 kg/m2 Antony Diaz MD blood pressure, systolic 127 mm[Hg] [facility], cuff size regular Jeb [facility] blood pressure, diastolic 84 mm[Hg] Jeb [facility] pulse rate 85 /min [facility] oxygen saturation, oximetry 96 % [facility] respiratory rate E&M 14 /min Latrice Parada iller weight E&M 326 [lb_av] [facility] height E&M 75 [in_i] [facility] Body Mass Index (Ratio) 38.49 kg/m2 Tae da Ventimiglia SENIOR MARKETING COORDINATOR blood pressure, diastolic 74 mm[Hg] Li nkLogic [...] abril blood pressure, diastolic 62 mm[Hg] Tr [facility] blood pressure, systolic 117 mm[Hg] Tra [facility] oxygen saturation, oximetry 97 % [facility] pulse rate 70 /min [facility] weight E&M 330 [lb_av] [facility] height E&M 75 [in_i] [facility] Body Mass Index (Ratio) 43.49 kg/m2 Antony Diaz MD blood pressure, cuff size large Ke rri Gloria blood pressure, diastolic 72 mm[Hg] Ke rri Ernestouenetiki blood pressure, systolic 120 mm[Hg] Rosalio Blackman oxygen saturation, oximetry 99 % Brisa Blackman respiratory rate E&M 16 /min Brisa nguyen pulse rate 74 /min Brisa Brothers [facility] weight E&M 348 [lb_av] Brisa Brtohers [facility] height E&M 75 [in_i] Brisa [...] Rubio oxygen saturation, oximetry 96 % Gabriela Rbuio respiratory rate E&M 16 /min Gabriela Rubio [...] Body Mass Index (Ratio) 67.99 kg/m2 [facility] weight E&M 544 [lb_av] Chidi Vega meera [...] blood pressure, diastolic 80 mm[Hg] Yasmany [place] blood pressure, systolic 148 mm[Hg] Ema [place] [...] once a day - 07/25 Celena Ventimiglia [facility] QUINAPRIL HCL 40 MG ORAL TABLET completed ONE TAB. DAILY - 12/03 Nhi Worthington [place] SOCIAL HISTORY Date Observation Value Provider drug use no Stephanie Garcia COUTURIERE alcohol use no Stephanie Garcia COUTURIERE passive cigarette sm norberto exposure no Stephanie Garcia COUTURIERE smoking status Former smoker Stephanie cho COUTURIERE drug use no [facility] alcohol use no [facility] passive cigarette sm norberto exposure no [facility] smoking/tobacco cessation, patient education and counseling contraindicated [facility] smoking status Former smoker [facility] drug use no Celena Ventimig mason [facility] alcohol use no Celena Ventimig mason [facility] smoking status Former smoker Celena Kal miglia [facility] drug use no Celena Ventimig mason [facility] alcohol use no Celena Ventimig mason [facility] smoking status Former smoker Celena Venti miglia [facility] social history E&M Marital Statu s: Single [...] kae alone E thnicity: Smoking History: Beatriz arcehiga is a former smoker. Wei Diaz MD social history revie wed E&M reviewed - no changes required Wei Diaz MD seatbelt usage 100 % Gabrielauzma mclean alcohol use, average drinks per day none Gabriela Ramiro alcohol use no Gabriela Gaminoajylon chapman caffeine use, averag e drinks per [...] Management Plan continue current therapy Celena Kaltishcarroll SENIOR MARKETING COORDINATOR HRA, CV Assess/Plan, Angina (inactive) Management Plan [...] Payer name Policy type / Coverage type Massena red constitution party ID [id number] (PPO C-SNP) Commercial insurance company [id number] [facility] Medicaid 1 [id number] ADVANCE DIRECTIVES Name Date DISCUSSED - NO DECISION MADE TREATMENT PLAN Date Name Performer [id number],B,L ast echo showed improvement in EF to 65% R emains asymptomtatic [facility] [id number],B,C ontinues to have weight loss post gastric bypass. Down another 22lbs [facility] [id number],S,T he patient is using CPAP on a regular basis. The patient has been benefiting from therapy and should continue use. [facility] [id number],S,w ill update lipids O rders: 9 9214 MOD 30-39min (CPT-01383) C OMPREHENSIVE METABOLIC PANEL, W/EGFR (26546) L IPID PANEL (7600) T SH, free T4, total T3 (7444) C BC (INCLUDES DIFF/PLT) (6399) [facility] [id number],S,B P 124/74 W ell controlled C ontinue present medication H is updated medication list for this problem includes: Furosemide 40 Mg Tablet (Furosemide) ..... Once a day [facility] [id number],C,H as lost 240lbs post bariatric surgery [facility] [id number],C,will get upda kevin labs [facility] [id number],C,N o chest pain or SOB. Off asa post bariatric surgery T he following medications were removed from the medication list: Amlodipine 5 Mg Tablet (Amlodipine) ..... 1 tablet by mouth once a day Lisinopril 10 Mg Tablet (Lisinopril) ..... Take 1 tablet by mouth once a day [facility] [id number],C,b lood pressure 117/62 well controlled T he following medications were removed from the medication list: Amlodipine 5 Mg Tablet (Amlodipine) ..... 1 tablet by mouth once a day Lisinopril 10 Mg Tablet (Lisinopril) ..... Take 1 tablet by mouth once a day His updated medication list for this problem includes: Furosemide 40 Mg Tablet (Furosemide) ..... Once a day [facility] [id number],C,L ast echo showed EF of 65%. He is currently compensated [facility] [id number],S, Wei wilcox MD [id number],S, Wei wilcox MD [id number],B, Wei wilcox MD [id number],S, Wei wilcox MD [id number],B, Wei wilcox MD [id number],B,S/P bariatric surgery. Wei Diaz MD [id number],S, Wei wilcox MD [id number],S,Scheduled for bariatric surgery Wei Diaz MD [id number],S, Wei wilcox MD [id number],S, Wei wilcox MD [id number],S, Wei wilcox MD [id number],S, Wei wilcox MD [id number],S, Wei wilcox MD [id number],S, Wei wilcox MD [id number],C,T he patient is using CPAP on a regular basis. The patient has been benefiting from therapy and should continue use. Wei Diaz MD [id number],S, Wei wilcox MD [id number],S, Wei wilcox MD Cardiology:Managed per PCP Kimberly [...] to 65% R emains asymptomtatic Celena Ventimiglia SENIOR MARKETING COORDINATOR Cardiology:Continues to have weight loss post gastric bypass. Down another 22lbs Celena Ventimiglia SENIOR MARKETING COORDINATOR Cardiology:The patie nt is using CPAP on a regular basis. The patient has been benefiting from therapy and should continue use. [facility] Cardiology:will upda te lipids O rders: 9 9214 MOD 30-39min (CPT-82224) C OMPREHENSIVE METABOLIC PANEL, W/EGFR (56278) L IPID PANEL (7600) T SH, free T4, total T3 (7444) C BC (INCLUDES DIFF/PLT) (6399) [facility] Cardiology:BP 124/74 W ell controlled C ontinue present medication H is updated medication list for this problem includes: Furosemide 40 Mg Tablet (Furosemide) ..... Once a day [facility] Cardiology:Has lost 240lbs post bariatric surgery [facility] Cardiology:will get updated labs [facility] Cardiology:No chest pain or SOB. Off asa post bariatric surgery T he following medications were removed from the medication list: Amlodipine 5 Mg Tablet (Amlodipine) ..... 1 tablet by mouth once a day Lisinopril 10 Mg Tablet (Lisinopril) ..... Take 1 tablet by mouth once a day [facility] Cardiology:blood pre ssure 117/62 well controlled T he following medications were removed from the medication list: Amlodipine 5 Mg Tablet (Amlodipine) ..... 1 tablet by mouth once a day Lisinopril 10 Mg Tablet (Lisinopril) ..... Take 1 tablet by mouth once a day His updated medication list for this problem includes: Furosemide 40 Mg Tablet (Furosemide) ..... Once a day [facility] Cardiology:Last echo showed EF of 65%. He is currently compensated [facility] Cardiology Wei Diaz MD Cardiology Wei [...] 1 tab po daily Orders: E KG (CPT-85113) Wei Diaz MD follow up Wei Diaz [...] 1 tab po daily Wei Diaz MD : H is updated [...] Tabs (Lisinopril) ..... Once daily Orders: EKG (CPT-51904) BP today: 130/90 Prior BP: 128/87 (01/11/2010) [...] Prior BP: / () Orders: E KG (CPT-91472) Wei Diaz MD routine visit with E [...] d EKG Chidi Dey compl eted SNOMED-CT: [id number] Current Medications Documented Chidi Dey completed SNOMED-CT: [id number] Current Medications Documented Wei Diaz MD completed SNOMED-CT: [id number] Current Medications Documented Wei Diaz MD completed EKG Wei Diaz MD complete d EKG Wei Diaz MD complete d EKG Wei Diaz MD complete d
[2024-08-14 15:42] LABS: Basophils Percent Auto 0.4 % (0.2-1.2); Eosinophils Absolute Auto 0.2 K/mm3 (0-0.3); Eosinophils Percent Auto 2.6 % (0-4.4); Hematocrit 48.4 % (42.0-52.0); Hemoglobin 15.9 g/dL (14.0-18.0); Immature Granulocyte Absolute 0.02 K/mm3 (0.00-0.031); Immature Granulocyte Percent A 0.3 % (0-0.5); Lymphocytes Absolute Auto 1.81 K/mm3 (0.9-3.2); Lymphocytes Percent Auto 25.1 % (18.3-44.2); Mean Corpuscular HGB Conc 32.9 g/dl (32-36); Mean Corpuscular Hemoglobin 32.2 pg (26-34); Mean Platelet Volume 11.3 fl (7.4-10.4); Monocytes Absolute Auto 0.5 K/mm3 (0.1-0.6); Monocytes Percent Auto 6.5 % (2.6-8.5); Neutrophils Absolute Auto 4.7 K/mm3 (1.3-6.7); Neutrophils Percent Auto 65.1 % (45.5-73.1); Platelet Count Result 148 k/mm3 (150-375); Red Blood Count 4.94 M/mm3 (4.6-6.20); Red Cell Distribution Width 13.3 % (11.5-14.5); White Blood Count 7.2 K/mm3 (4.5-10.0)
[2024-08-14 15:50] LABS: Alanine Aminotransferase 53 U/L (6-50); Albumin Level 4.2 g/dL (3.5-5.1); Alkaline Phosphatase 90 U/L (38-126); Anion Gap 9 mmol/L (4-12); Aspartate Amino Transferase 33 U/L (17-59); Bilirubin,Total 0.7 mg/dL (0.2-1.3); Blood Urea Nitrogen 31 mg/dL (9-20); Calcium 8.8 mg/dL (8.4-10.2); Carbon Dioxide 27 mmol/L (22-30); Chloride 104 mmol/L (98-107); Estimated CRCL calculation 82 ml/min; Estimated Glomerular Filt Rate 57; Glucose 97 mg/dL (65-110); Potassium 4.1 mmol/L (3.4-5.0); Sodium 140 mmol/L (137-145)
[2024-08-14 15:52] LABS: INR 1.1; Prothrombin Time 14.6 Seconds (11.1-14.7)
[2024-08-14 15:53] LABS: Partial Thromboplastin Time 29.9 Seconds (22.3-36.8)
--- NOTE | 2024-08-14 16:33 | ED_ITS ---
HPI - Extremity Problem General Chief complaint: Extremity Problem,Nontraumatic Stated complaint: Swelling/pain right wrist-unknown injury Time Seen by Provider: 08/14/24 15:02 History of Present Illness HPI Narrative: Patient is a 64-year-old male who presents ER with swelling to the right forearm. It has mild erythema. Ongoing for couple days. Reports he was dehydrated a week ago and had multiple sticks for blood but they could not get it. No fevers or chills or sweats. No history of DVT. He is on no blood thinning medications. Mild warmth and discomfort. Related Data Home Medications ?Medication ?Instructions ?Recorded ?Confirmed ?Last Taken ?Type albuterol sulfate 90 mcg/actuation 1 puff inhalation Q4H PRN 12/26/23 07/07/24 Unknown History aerosol inhaler allopurinol 200 mg tablet 200 mg PO DAILY 12/26/23 07/07/24 Unknown History budesonide-formoterol HFA 160 1 inh inhalation ONCE 12/26/23 07/07/24 Unknown History mcg-4.5 mcg/actuation aerosol inhaler bupropion HCl 150 mg tablet,12 hr 150 mg PO BID 12/26/23 07/07/24 Unknown History sustained-release cyanocobalamin (vitamin B-12) 500 500 mcg PO DAILY 12/26/23 07/07/24 Unknown History mcg lozenges finasteride 5 mg tablet 5 mg PO DAILY 12/26/23 07/07/24 Unknown History fluticasone propionate 50 1 inh inhalation Q12H 12/26/23 07/07/24 Unknown History mcg/actuation blister powder for inhalation furosemide 40 mg tablet 40 mg PO QAM 12/26/23 07/07/24 Unknown History gabapentin 400 mg capsule 400 mg PO TID 12/26/23 07/07/24 Unknown History paroxetine HCl 10 mg tablet 10 mg PO DAILY 12/26/23 07/07/24 Unknown History simvastatin 40 mg tablet 40 mg PO DAILY 12/26/23 07/07/24 Unknown History tamsulosin 0.4 mg capsule 0.4 mg PO QHS 12/26/23 07/07/24 Unknown History Tumeric PO 03/26/24 07/07/24 Unknown History calcium acetate 667 mg tablet 667 mg PO TID 03/26/24 07/07/24 Unknown History vitamin E mixed 1,000 unit capsule unit PO 03/26/24 07/07/24 Unknown History multivitamin (Daily Multi-Vitamin 2 tablet PO DAILY 07/07/24 07/07/24 Unknown History tablet) Allergies Allergy/AdvReac Type Severity Reaction Status Date / Time No Known Allergies Allergy Verified 08/14/24 13:37 Review of Systems 2 Review of Systems: All systems reviewed & are unremarkable except as noted in HPI and below Constitutional: Constitutional: Reports no additional constitutional complaints Cardiovascular: Cardiovascular: Reports no additional cardiovascular complaints Respiratory: Respiratory: Reports no additional respiratory complaints Musculoskeletal: Musculoskeletal: Reports no additional musculoskeletal complaints Integumentary/Breasts: Skin/Breast: Reports system reviewed and no additional complaints, except as docu PMFSH Past Medical History Medical History Anxiety OCD (obsessive compulsive disorder) High blood pressure Diabetes Surgical History Surgical History History of hernia repair History of bariatric surgery Family History Family History Father Diabetes mellitus Cerebrovascular accident Social History Social History (Updated 07/07/24 @ 14:36 by Tammy Luo CMA) Smoking status: Never smoker Smoking end date: 05/14/85 Alcohol intake: former Substance use type: does not use Do You Feel Safe in your Home?: Yes Lack of Transportation: No Lack of Food: Never True Current Housing: I Have Housing Concerned About Future Housing: No Difficulty Paying Gas/Electric Bills: No Difficulty Paying for Meds: No Currently Unemployed: No Education: Bachelor's Degree Difficulty w/ Childcare or Family Care: No Exam 2 Narrative: GENERAL: Well-appearing, obese, and in no acute distress. HEAD: Normocephalic, atraumatic. ENT:Mucous membranes moist. CHEST: Clear to auscultation. No respiratory distress. HEART: Regular rate and rhythm. Normal peripheral pulses. EXTREMITIES: Normal range of motion. 1+ edema right upper extremity. SKIN: Warm, dry, mild erythema of the right forearm. No palpable cord right upper extremity. NEURO: Alert and oriented x3. PSYCH: Normal mood and affect. Course Course Emergency Course: Patient resting comfortably, informed of results. Recommend oral antibiotic for cellulitis the there still could be component of superficial thrombophlebitis though no clot seen on ultrasound and no cord palpated. Recommend warm compresses given his elevated creatinine. Vital Signs Vital signs: Vital Signs Temperature 97.6 F 08/14/24 13:49 Pulse Rate 65 08/14/24 13:49 Respiratory Rate 18 08/14/24 13:49 Blood Pressure 119/79 08/14/24 13:49 Pulse Oximetry 99 08/14/24 13:49 Oxygen Delivery Room Air 08/14/24 13:49 Temperature 97.6 F 08/14/24 13:49 Pulse Rate 65 08/14/24 13:49 Respiratory Rate 18 08/14/24 13:49 Blood Pressure 119/79 08/14/24 13:49 Pulse Oximetry 99 08/14/24 13:49 Oxygen Delivery Room Air 08/14/24 13:49 MDM - Extremity (Nontraumatic) Lab Data 08/14/24 15:32 08/14/24 15:32 Labs: Lab Results 08/14/24 Range/Units 15:32 WBC 7.2 (4.5-10.0) K/mm3 RBC 4.94 (4.6-6.20) M/mm3 Hgb 15.9 (14.0-18.0) g/dL Hct 48.4 (42.0-52.0) % MCV 98.0 (80-100) fl MCH 32.2 (26-34) pg MCHC 32.9 (32-36) g/dl RDW 13.3 (11.5-14.5) % Plt Count 148 L (150-375) k/mm3 MPV 11.3 H (7.4-10.4) fl Immature Gran % (Auto) 0.3 (0-0.5) % Neut % (Auto) 65.1 (45.5-73.1) % Lymph % (Auto) 25.1 (18.3-44.2) % [place] % (Auto) 6.5 (2.6-8.5) % Eos % (Auto) 2.6 (0-4.4) % Baso % (Auto) 0.4 (0.2-1.2) % Lymph # (Auto) 1.81 (0.9-3.2) K/mm3 Gladwin # (Auto) 0.5 (0.1-0.6) K/mm3 Eos # (Auto) 0.2 (0-0.3) K/mm3 Baso # (Auto) 0.0 (0.0-0.1) K/mm3 Abs Immat Gran (auto) 0.02 (0.00-0.031) K/mm3 Absolute Neuts (auto) 4.7 (1.3-6.7) K/mm3 Absolute Nucleated RBC 0.000 (0.0-0.012) K/mm3 Nucleated RBC % 0.0 (0.0-0.2) % PT 14.6 (11.1-14.7) Seconds INR 1.1 APTT 29.9 (22.3-36.8) Seconds Sodium 140 (137-145) mmol/L Potassium 4.1 (3.4-5.0) mmol/L Chloride 104 (98-107) mmol/L Carbon Dioxide 27 (22-30) mmol/L Anion Gap 9 (4-12) mmol/L BUN 31 H (9-20) mg/dL Creatinine 1.27 (0.7-1.3) mg/dL Estim Creat Clear Calc 82 ml/min Estimated GFR 57 L (59 - ) Glucose 97 (65-110) mg/dL Calcium 8.8 (8.4-10.2) mg/dL Total Bilirubin 0.7 (0.2-1.3) mg/dL AST 33 (17-59) U/L ALT 53 H (6-50) U/L Alkaline Phosphatase 90 (38-126) U/L Total Protein 7.0 (6.3-8.2) g/dL Albumin 4.2 (3.5-5.1) g/dL Imaging Data Radiologist's impression: ITS Impressions Venous Doppler Study 08/14/24 15:50 IMPRESSION: 1. Patent right upper extremity veins. No evidence of venous thrombosis. Discharge Plan Discharge Clinical Impression: Cellulitis Patient Disposition: Home, Self-Care Condition: Stable Instructions: Cellulitis (ED) Additional Instructions: Return ER if you have fever 100.4? F, he can not keep down food water, you lose consciousness, have additional concerns. Patient Language: Greek Prescriptions: New cefuroxime axetil 500 mg tablet 500 mg PO Q12H Qty: 14 0RF No Action albuterol sulfate 90 mcg/actuation HFA aerosol inhaler 1 puff inhalation Q4H PRN allopurinol 200 mg tablet 200 mg PO DAILY budesonide-formoterol 160-4.5 mcg/actuation HFA aerosol inhaler 1 inh inhalation ONCE bupropion HCl 150 mg tablet sustained-release 12 hr 150 mg PO BID cyanocobalamin (vitamin B-12) 500 mcg lozenge 500 mcg PO DAILY finasteride 5 mg tablet 5 mg PO DAILY fluticasone propionate 50 mcg/actuation blister with device 1 inh inhalation Q12H furosemide 40 mg tablet 40 mg PO QAM gabapentin 400 mg capsule 400 mg PO TID paroxetine HCl 10 mg tablet 10 mg PO DAILY simvastatin 40 mg tablet 40 mg PO DAILY tamsulosin 0.4 mg capsule 0.4 mg PO QHS Tumeric PO calcium acetate 667 mg tablet 667 mg PO TID vitamin E mixed 1,000 unit capsule PO multivitamin [Daily Multi-Vitamin] Tablet 2 tablet PO DAILY Follow-up/Referrals: Wagner,Gil Mondragon [Primary Care Provider] - 1 Week
[2024-08-14] MEDS: cefuroxime axetiL 250 MG TABLET 500 MG PO (16:53)
== END 2024-08-14 18:36 | disposition home or self-care (01) ==
PROVIDERS: Emergency Provider Emergency Medicine; PCP Internal Medicine Infectious Disease
DX: L03.113 Cellulitis of right upper limb (principal); E11.9 Type 2 diabetes mellitus without complications
CPT/HCPCS: 36415; 80053; 85025; 85610; 85730; 93971; 99284; A9270

== ENCOUNTER 2025-01-29 10:47 | Emergency (ER) | payer MEDICARE, MEDICAID, SELFPAY ==
[2025-01-29] VITALS (8 sets, daily range): BP systolic 98–124; BP diastolic 64–83; PULSE 87–89; RESP 16; TEMP 36.4; O2SAT 98–100
--- NOTE | ~2025-01-29 | CT_ITS ---
EXAMINATION: CT abdomen pelvis w con DATE: 01/29/2025 13:10 INDICATION: Generalized abdominal pain. TECHNIQUE: Computed tomography (CT) of the abdomen and pelvis was performed with 100 mL Omnipaque 350 intravenous contrast. Automated exposure control and iterative reconstruction technique were employed. The dose-length product was 1723.14 mGy-cm. COMPARISON: None. FINDINGS: The visualized portions of the lung bases demonstrate mild atelectasis. No pleural effusion. The heart size is normal. No pericardial effusion. The liver and spleen are normal. There are gallstones in the gallbladder, which is normal in size. The pancreas and adrenal glands are normal. There is cortical thinning in the kidneys. There are approximately 7 stones in right kidney measuring up to 5 mm. There are 4 stones in left kidney measuring up to 7 mm. The prostate is mildly enlarged. There is a left inguinal hernia containing fat. There is diverticulosis of the colon without evidence of diverticulitis. The appendix is normal. There are changes of gastric bypass procedure. There are no pathologically enlarged lymph nodes. There is no free intraperitoneal fluid. There is severe lumbar spondylosis. There is mild thoracic spondylosis. IMPRESSION: 1. Left inguinal hernia containing fat. Reviewed, dictated and finalized at location E.
--- NOTE | ~2025-01-29 | XR_ITS ---
EXAMINATION: XR chest 2V, 01/29/2025 13:50 CDT HISTORY: CHF hx COMPARISON: No comparisons available. Technique: 2 views obtained. Findings: The lungs are clear, no effusion. No pneumothorax. Heart is normal size. Mediastinal and hilar contours are within normal limits. Bony thorax no acute abnormality. Impression: No acute cardiopulmonary abnormality. Reviewed, dictated and finalized at location A. Impression: No acute cardiopulmonary abnormality.
--- OUTSIDE RECORDS SUMMARY | 2025-01-29 11:26 | XMS_ITS | Clinical Summary ---
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..] Conv) Arthritis Depression Type 2 diabetes mellitus Hypertension Sleep apnea Morbid obesity (HCC) PVD [...] Sexual Orientation Straight 06/09/2020 6: 52 PM 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 RIDER Obstetrics History Last Filed Vital Signs Vital Sign Reading Time Taken Comments Blood Pressure 138/88 08/22/2021 1:24 PM CDT Pulse 83 08/22/2021 1:24 PM CDT Temperature 36.6 C (97.8 F) 08/22/2021 1:24 PM CDT Respiratory Rate 18 08/15/2021 8:35 AM CDT Oxygen Saturation 98% 08/15/2021 8:3 5 AM CDT Inhaled Oxygen Concentration - - Weight 151 kg (332 lb 12.8 oz) 10/24/2024 12:12 PM CDT scale wt, wt of wheelchair 58.8 lb, total wt with chair 391.6 lb Height 190.5 cm (6' 3) 10/24/2024 12:1 2 PM CDT Body Mass Index 41.6 10/24/2024 12:12 PM CDT Plan of Treatment Health Maintenance Due [...] Visit 65+ 2023 Covid-19 Vaccine (4 - 2024-2 6 season) 2025 07/13/2021, 10/29/2020, 10/01/2020 Influenza Vaccine (#1) 2025 2, 03/08/2020, 04/04/2019, Additional history exists DTaP/Tdap/Td [...] 90 - 130 mL/min/1. 73 m2 [facility] Comment: Interpretive Data Reference Interval Normal [...] CDT 08/12/2021 11:18 PM CDT Jany Short METAL SASH SETTER LAB BLOOD ORDERABLES Fin al Result [facility] [place] [address] * (ABNORMAL) POCT hemoglobin A1c (07/28/2021 2:56 PM CDT) Hgb A1C, POC 5.9(H) 4.0 - 5.6 % [facility] Est Average Gluc POC 123 mg/dL [facility] Comment: The ADA recommends reporting an estimated Average Glucose (eAG) with all Hemoglobin A1c results using the equation derived from a study of 507 normal and diabetic adults. Minority populations were underrepresented and children were not included. (Diabetes Care 31:0657-9452, 2008). The eAG is not equivalent to a fasting glucose. Blood 07/28/2021 2:56 PM CDT 07/28/2021 2:56 PM CDT Jason Zuniga MD POINT OF CARE TEST ORDERABLES F inal Result [facility] [place] [address] from Last 3 Months or Most Recently Relevant to Health Maintenance Insurance IDPA UHC MEDICARE ADVANTAGE MEDICARE [facility]PA [facility] MEDICARE ADVANTAGE [facility] MEDICARE Address: [address] [address] [place] [address] Advance Directives For more information, please contact: [phone] * Full Code (Latest Code Status on File) Date Activated Date Inactivated Comments 08/11/2021 6:57 PM 08/15/2021 7:00 PM Care Teams Planting Machine Crewman Relationship Specialty [place] [address] [place] [id number] PCP - General 12/04/16
--- OUTSIDE RECORDS SUMMARY | 2025-01-29 11:26 | XMS_ITS | Clinical Summary ---
Author Organization [facility] Address [address] [facility] [place] [address] Care Team Providers Care Before And After School Daycare Worker Name Role Phone Alanna Edward MD Primary Care Provider Source Comments [facility],non-owned Affiliates and Associated Physician Practices is amultiple site organization consisting of ambulatory clinics and hospital sitesin [place], [place]. This disclosure is being madepursuant to the Care Everywhere program and may not contain all information available regarding this patient. Last updated 18.[facility] Allergies No known active allergies Medications * Be aware that medications may not be up to date on this document. Alwaysverify current medications with the patient. simvastatin (ZOCOR) 40 MG tablet Take 1 [...] by mouth every 4 hours as needed 3 Active Symbicort 80-4.5 MCG/ACT inhaler Inhale 2 (two) puffs by mouth 2 times daily 3 Active gabapentin (Neurontin) 400 MG capsule Take 1 (one) capsule by mouth 3 times daily 3 Active naltrexone (Revia) 50 MG tablet TAKE 1 TABLET BY MOUTH ONCE DAILY BEFORE MEAL(S) 3 Active buPROPion SR 12hr (Wellbutrin-SR) 150 MG tablet TAKE 1 TABLET BY MOUTH TWICE DAILY BEFORE MEAL(S) 4 Active cyanocobalamin (Vitamin B-12) 500 MCG tablet Take 1 (one) tablet by mouth once daily 4 Active fluticasone propionate (Flonase) 50 MCG/ACT nasal spray USE 2 SPRAY(S) IN EACH NOSTRIL ONCE DAILY DIRECTED 4 Active ascorbic acid (VITAMIN C) 500 MG tablet Take 1 (one) tablet by mouth once daily 4 Active SV Iron 325 (65 Fe) MG tablet Take 1 (one) tablet by mouth 2 times daily 4 Active nortriptyline (Pamelor) 10 MG capsule TAKE 1 CAPSULE BY MOUTH ONCE DAILY IN THE EVENING Active topiramate (Topamax) 100 MG tablet Take 1 (one) tablet by mouth 2 times daily with morning and evening meal Active finasteride (Proscar) 5 MG tabletIndication s:Benign Prostatic Hypertrophy Take 1 (one) tablet by mouth once daily Reasons: Benign Enlargement of Prostate 90 tablet 3 5 06/16/19 26 Active tamsulosin (Flomax) 0.4 MG capsuleIndicatio ns:Benign Prostatic Hypertrophy Take 1 (one) capsule by mouth every 12 hours After a meal. Reasons: Benign Enlargement of Prostate 180 capsule 3 5 06/16/19 26 Active Active Problems Problem Noted Date Diagnosed Date Benign prostatic hyperplasia with lower urinary tract symptoms 04/16/2023 SHEARER (dyspnea on exertion) 05/17/2011 Morbid obesity 08/26/2010 HTN (hypertension) 08/26/2010 High blood cholesterol 08/26/2010 Gout 08/26/2010 Overview (02/11/2015): Old HI (myocardial infarction) 08/26/2010 Arthropathies 08/26/2010 Low back pain 08/26/2010 GERD (gastroesophageal reflux disease) 1 Hiatal hernia 08/26/2010 Anxiety 08/26/2010 OCD (obsessive compulsive disorder) 08/26/2010 Depression 08/26/2010 GABRIELLE (obstructive sleep apnea) 08/26/2010 Personal history of thromboembolic disease 08/26 Family History Medical History Relation Name Comments [...] at Not on file Legal Sex Male 11:35 AM PRUNER Gender Identity Not on file Sexual Orientation Not on file Last Filed Vital Signs Vital Sign Reading Time Taken Comments Blood Pressure 118/70 06/16/2024 1:47 PM PRUNER Pulse 64 06/16/2024 1:47 PM PRUNER Temperature 36.3 C (97.3 F) 06/16/2024 1:47 PM PRUNER Respiratory Rate 17 06/16/2024 1:47 PM PRUNER Oxygen Saturation 94% 06/16/2024 1:47 PM PRUNER Inhaled Oxygen Concentration - - Weight 147.4 kg (325 lb) 06/16/2024 1:47 PM PRUNER Height 193 cm (6' 4) 06/16/2024 1:47 PM PRUNER Body Mass Index 39.56 06/16/2024 1:47 PM PRUNER Plan of Treatment Upcoming Encounters Date Type Department Care Team (Late st Contact Info) Description 06/15/2025 2:30 PM PRUNER Office Visit [facility] - Urology [address] [place] [id number] Varghese Yen MD [address] [place] [id number] Health Maintenance Due Date Last Done Comments [...] 2008 ZOSTER VACCINE (1 of 2) 2008 AAA SCREENING 2023 SCREENING FOR DIABETES 12/18/2023 DEPRESSION SCREENING 05/14/2024 MEDICARE AWV CALENDAR YEAR 2024 COVID-19 VACCINE (3 - 2024-2 6 season) 2025 11/08/2020, 10/08/2020 INFLUENZA VACCINE (#1) 2025 Respiratory Syncytial Virus (RSV) Vaccine Pt: or over 60 yrs (1 - 1-dose 75+ series) 2033 HEPATITIS B VACCINE Aged Out No longe [...] patient's age to complete this topic Insurance MEDICAID - [place] [facility] MANAGED MEDICARE ADV MEDICARE Care Teams Before And After School Daycare Worker Relationship Specialty Start Date End Date Alanna Edward MD [address] [place] [address] [phone] PCP - General 06/07/21
--- NOTE | 2025-01-29 11:43 | ECG_ITS ---
Test Date: 2025-01-29 11:59:28 Measurements Intervals [place] Rate: 75 P: 0 MS: 0 QRS: 23 QRSD: 121 T: 5 QT: 366 QTc: 409 Interpretive Statements ATRIAL FIBRILLATION MODERATE INTRAVENTRICULAR CONDUCTION DELAY [110+ ms QRS DURATION] ABNORMAL ECG No previous ECG available for comparison Electronically Signed On 01-29-2025 12:36:31 CDT by Willem Freeman M.D.
--- NOTE | 2025-01-29 11:49 | ED.GENADULT ---
HPI - General Adult General Chief complaint: Unspecified Stated complaint: cramping Time Seen by Provider: 01/29/25 11:00 History of Present Illness HPI narrative: Patient is a 64-year-old male who presents to the ER with complaints of abdominal pain. He reports he has been having ?mid section and prostate discomfort recently. Patient reports his last bowel movement was last night, but ?it was just 1 clump. He denies any recent fevers, shortness of breath, chest pain. Patient reports he recently went to his primary care provider who advised him to come to the ER for evaluation. He reports he has lost approximately 200 lb over the past couple of years following bariatric surgery. Patient also reports he has had low blood pressure readings recently at home (80s over 60s). He reports he is on a blood thinner, and has a history of breathing issues and diabetes. Related Data Home Medications ?Medication ?Instructions ?Recorded ?Confirmed ?Last Taken ?Type albuterol sulfate 90 mcg/actuation 1 puff inhalation Q4H PRN 12/26/23 01/13/25 Unknown History aerosol inhaler allopurinol 200 mg tablet 200 mg PO DAILY 12/26/23 01/13/25 Unknown History budesonide-formoterol HFA 160 1 inh inhalation ONCE 12/26/23 01/13/25 Unknown History mcg-4.5 mcg/actuation aerosol inhaler bupropion HCl 150 mg tablet,12 hr 150 mg PO BID 12/26/23 01/13/25 Unknown History sustained-release cyanocobalamin (vitamin B-12) 500 500 mcg PO DAILY 12/26/23 01/13/25 Unknown History mcg lozenges finasteride 5 mg tablet 5 mg PO DAILY 12/26/23 01/13/25 Unknown History fluticasone propionate 50 1 inh inhalation Q12H 12/26/23 01/13/25 Unknown History mcg/actuation blister powder for inhalation furosemide 40 mg tablet 40 mg PO QAM 12/26/23 01/13/25 Unknown History gabapentin 400 mg capsule 400 mg PO TID 12/26/23 01/13/25 Unknown History paroxetine HCl 10 mg tablet 10 mg PO DAILY 12/26/23 01/13/25 Unknown History simvastatin 40 mg tablet 40 mg PO DAILY 12/26/23 01/13/25 Unknown History tamsulosin 0.4 mg capsule 0.4 mg PO QHS 12/26/23 01/13/25 Unknown History Tumeric PO 03/26/24 01/13/25 Unknown History calcium acetate 667 mg tablet 667 mg PO TID 03/26/24 01/13/25 Unknown History vitamin E mixed 1,000 unit capsule unit PO 03/26/24 01/13/25 Unknown History multivitamin (Daily Multi-Vitamin 2 tablet PO DAILY 07/07/24 01/13/25 Unknown History tablet) Allergies Allergy/AdvReac Type Severity Reaction Status Date / Time No Known Allergies Allergy Verified 01/08/25 12:46 Review of Systems Review of Systems: All systems reviewed & are unremarkable except as noted in HPI and below PMFSH Past Medical History Medical History Anxiety OCD (obsessive compulsive disorder) High blood pressure Diabetes Surgical History Surgical History History of hernia repair History of bariatric surgery Family History Family History Father Diabetes mellitus Cerebrovascular accident Social History Social History Smoking status: Never smoker Smoking end date: 05/14/85 Alcohol intake: former Substance use type: does not use Do You Feel Safe in your Home?: Yes Lack of Transportation: No Lack of Food: Never True Current Housing: I Have Housing Concerned About Future Housing: No Difficulty Paying Gas/Electric Bills: No Difficulty Paying for Meds: No Currently Unemployed: No Education: Bachelor's Degree Difficulty w/ Childcare or Family Care: No Exam Narrative: GENERAL: Well appearing, obese, non-toxic, in no acute distress. HEAD: Normocephalic, atraumatic. NECK: Supple. No adenopathy, no masses. RESPIRATORY: Airway patent, respirations nonlabored. Clear to auscultation bilaterally, no rales, rhonchi, wheezing. CARDIOVASCULAR: Regular rate and rhythm without murmurs, rubs, or gallops. Peripheral pulses 2+ and equal bilaterally. + bilateral lower extremity edema with skin discoloration. ABDOMINAL: Soft, nontender, nondistended, no hepatosplenomegaly. Normoactive BS. MUSCULOSKELETAL: Moves all extremities. Strength/ROM intact without gross deformities. SKIN: Warm, dry, normal color. No rashes. Bilateral lower extremities brown in color (branch service representative reports this is iron buildup) NEURO: A&O X3. Speech clear. Cranial nerves II-XII intact. No ataxic movements. PSYCHIATRIC: Appropriate mood and affect. Normal interaction. Course Vital Signs Vital signs: Vital Signs Temperature 36.4 C 01/29/25 10:48 Pulse Rate 87 01/29/25 10:48 Respiratory Rate 16 01/29/25 10:48 Blood Pressure 98/64 L 01/29/25 10:48 Pulse Oximetry 98 01/29/25 10:48 Temperature 36.4 C 01/29/25 10:48 Pulse Rate 89 01/29/25 11:00 Respiratory Rate 16 01/29/25 11:00 Blood Pressure 111/79 01/29/25 17:24 Pulse Oximetry 100 01/29/25 11:00 Oxygen Delivery Room Air 01/29/25 11:00 Medical Decision Making [facility] Narrative Medical decision making narrative: Patient is a 64-year-old male who presents to the ER with complaints of abdominal pain. He reports he has been having ?mid section and prostate discomfort recently. Patient reports his last bowel movement was last night, but ?it was just 1 clump. He denies any recent fevers, shortness of breath, chest pain. Patient reports he recently went to his primary care provider who advised him to come to the ER for evaluation. He reports he has lost approximately 200 lb over the past couple of years following bariatric surgery. Patient also reports he has had low blood pressure readings recently at home (80s over 60s). He reports he is on a blood thinner, and has a history of breathing issues and diabetes. Labs Ordered: CBC, CMP, UA, PTT, INR, proBNP, lipase Imaging Ordered: CT abdomen pelvis Medications Ordered: 1 L normal saline IV bolus Results: Patient's CBC indicates a platelet count of 142. His coags indicate a PT of 16.7, INR 1.4, APTT of 34.1. Patient's CMP indicates a BUN of 22 in total protein 6.2. His proBNP is 482. Patient's lipase was unremarkable. Diagnosis: Hiatal hernia, constipation, intermittent hypotension Risks: HEART score: low risk HEART Score for Major Cardiac Events from [email or web address] on 01/29/2025 All calculations should be rechecked by clinician prior to use RESULT SUMMARY: 4 points Moderate Score (4-6 points) Risk of MACE of 12-16.6%. INPUTS: History ?> 1 = Moderately suspicious EKG ?> 0 = Normal Age ?> 2 = >=5 Risk factors ?> 1 = 1-2 risk factors Initial troponin ?> 0 = <Normal limit Patient Education/Shared MDM: Results of lab work and imaging shared with patient. He was given 1 L normal saline IV bolus and his orthostatics are very stable after administration. Patient strongly advised to maintain hydration status upon discharge and follow-up with his PCP as soon as possible. He was also advised to take MiraLax is needed for constipation. Patient follow-up with outpatient general surgery for hernia consult. He will not be discharged home with any new a prescriptions. Patient is also requesting a Urology referral due to his concern for an enlarged prostate. Strict return precautions provided. Patient verbalized understanding and is in agreement with plan. Vital signs stable at time of discharge. All questions answered. Differential Diagnosis Differential Diagnosis: abdominal pain, constipation, urinary tract infection, dehydration Vital Signs Vital Signs: Vital Signs Temperature 36.4 C 01/29/25 10:48 Pulse Rate 87 01/29/25 10:48 Respiratory Rate 16 01/29/25 10:48 Blood Pressure 98/64 L 01/29/25 10:48 Pulse Oximetry 98 01/29/25 10:48 Temperature 36.4 C 01/29/25 10:48 Pulse Rate 89 01/29/25 11:00 Respiratory Rate 16 01/29/25 11:00 Blood Pressure 111/79 01/29/25 17:24 Pulse Oximetry 100 01/29/25 11:00 Oxygen Delivery Room Air 01/29/25 11:00 Lab Data Lab results reviewed: Yes I reviewed the patient's lab results. 01/29/25 12:14 01/29/25 12:14 Labs: Lab Results 01/29/25 01/29/25 Range/Units 12:14 15:56 WBC 6.2 (4.5-10.0) K/mm3 RBC 4.54 L (4.6-6.20) M/mm3 Hgb 14.7 (14.0-18.0) g/dL Hct 43.5 (42.0-52.0) % MCV 95.8 (80-100) fl MCH 32.4 (26-34) pg MCHC 33.8 (32-36) g/dl RDW 14.1 (11.5-14.5) % Plt Count 142 L (150-375) k/mm3 MPV 11.2 H (7.4-10.4) fl Immature Gran % (Auto) 0.2 (0-0.5) % Neut % (Auto) 67.0 (45.5-73.1) % Lymph % (Auto) 25.0 (18.3-44.2) % Robertson % (Auto) 6.0 (2.6-8.5) % Eos % (Auto) 1.5 (0-4.4) % Baso % (Auto) 0.3 (0.2-1.2) % Lymph # (Auto) 1.54 (0.9-3.2) K/mm3 Robertson # (Auto) 0.4 (0.1-0.6) K/mm3 Eos # (Auto) 0.1 (0-0.3) K/mm3 Baso # (Auto) 0.0 (0.0-0.1) K/mm3 Abs Immat Gran (auto) 0.01 (0.00-0.031) K/mm3 Absolute Neuts (auto) 4.1 (1.3-6.7) K/mm3 Absolute Nucleated RBC 0.000 (0.0-0.012) K/mm3 Nucleated RBC % 0.0 (0.0-0.2) % PT 16.7 H (11.1-14.7) Seconds INR 1.4 APTT 34.1 (22.3-36.8) Seconds Sodium 137 (137-145) mmol/L Potassium 4.1 (3.4-5.0) mmol/L Chloride 107 (98-107) mmol/L Carbon Dioxide 25 (22-30) mmol/L Anion Gap 5 (4-12) mmol/L BUN 22 H (9-20) mg/dL Creatinine 1.16 (0.7-1.3) mg/dL Estim Creat Clear Calc 85 ml/min Estimated GFR > 60 (59 - ) Glucose 87 (65-110) mg/dL Calcium 8.4 (8.4-10.2) mg/dL Total Bilirubin 0.8 (0.2-1.3) mg/dL AST 32 (17-59) U/L ALT 42 (6-50) U/L Alkaline Phosphatase 91 (38-126) U/L NT-Pro-B Natriuret Pep 482 H (19.9-100) pg/mL Total Protein 6.2 L (6.3-8.2) g/dL Albumin 3.6 (3.5-5.1) g/dL Lipase 117 (23-300) U/L Urine Color Yellow (Yellow) Urine Appearance Clear (Clear) Urine pH 7.0 (5.0-9.0) Ur Specific [place] 1.035 (1.001-1.035) Urine Protein Negative (Negative) mg/dL Urine Glucose (UA) Negative (Negative) mg/dL Urine Ketones Negative (Negative) mg/dL Ur Blood (Man) Negative (Negative) Urine Nitrate Negative (Negative) Urine Bilirubin Negative (Negative) Urine Urobilinogen 1.0 (<2.0) mg/dL Leukocyte Esterase Rfl Negative (Negative) JAMES/UL Imaging Data Attestation: I personally reviewed and interpreted this imaging study as follows: Radiologist's impression: Impressions Abdomen/Pelvis CT 01/29/25 13:14 IMPRESSION: 1. Left inguinal hernia containing fat. Chest X-Ray 01/29/25 14:03 Impression: No acute cardiopulmonary abnormality. Discharge Plan Discharge Clinical Impression: Hiatal hernia, Abdominal pain, Constipation, Dehydration, mild Patient Disposition: Home Condition: Stable Instructions: Antibiotic Form, Hiatal Hernia (ED), Constipation (ED), Abdominal Pain (ED) Additional Instructions: Please return to the ER with any worsening symptoms. Follow-up with General surgery for further evaluation of your hernia. Take all medications as prescribed, including regularly scheduled medications. Please remember to drink lots of water. You may take MiraLax as needed for constipation. Patient Language: Cape Verdean Prescriptions: No Action albuterol sulfate 90 mcg/actuation HFA aerosol inhaler 1 puff inhalation Q4H PRN allopurinol 200 mg tablet 200 mg PO DAILY budesonide-formoterol 160-4.5 mcg/actuation HFA aerosol inhaler 1 inh inhalation ONCE bupropion HCl 150 mg tablet sustained-release 12 hr 150 mg PO BID cyanocobalamin (vitamin B-12) 500 mcg lozenge 500 mcg PO DAILY finasteride 5 mg tablet 5 mg PO DAILY fluticasone propionate 50 mcg/actuation blister with device 1 inh inhalation Q12H furosemide 40 mg tablet 40 mg PO QAM gabapentin 400 mg capsule 400 mg PO TID paroxetine HCl 10 mg tablet 10 mg PO DAILY simvastatin 40 mg tablet 40 mg PO DAILY tamsulosin 0.4 mg capsule 0.4 mg PO QHS Tumeric PO calcium acetate 667 mg tablet 667 mg PO TID vitamin E mixed 1,000 unit capsule PO multivitamin [Daily Multi-Vitamin] Tablet 2 tablet PO DAILY cefuroxime axetil 500 mg tablet 500 mg PO Q12H Qty: 14 0RF Follow-up/Referrals: Wagner,Genesis Mondragon. [Primary Care Provider] Silvana Ruelas MD [Physician, General Surgery] Referral Note: general surgery Don Iverson MD [Physician, Urology] Referral Note: urology Time of Disposition: 17:51
--- OUTSIDE RECORDS SUMMARY | 2025-01-29 11:50 | XMS_ITS | Clinical Summary ---
Author Organization [facility] Address [address] [place] [address] Care Team Providers Care Pacu Nurse Name Role Phone Alanna Edward MD Primary Care Provider [phone] Medications CPAP DME DEVICE CPAP18 HS [id number] n, VentrapragadaActive Ac tive OXYGEN [id number] bleed in with [id number] VentrapragadaActive 06/23/19 17 Active amlodipine 5 [...] 08/26/2010 OCD (obsessive compulsive disorder) 08/26/2010 [place] (myocardial infarction) 08/26/2010 Personal history of thromboembolic [...] 10:47 AM CDT Height 190.5 cm (6' 3) 08/23/2018 10:47 AM CDT Body Mass Index 66.25 08/23/2018 10:47 AM CDT Plan of Treatment Health Maintenance Due Date Last Done Comments ASCVD LDL 1958 ASCVD Statin 1958 Colorectal Cancer Screening Colonoscopy (10 Years) 1958 Hepatitis C 1976 DTaP, Tdap and Td Vaccines ( 1 - Tdap) 1977 Pneumococcal Vaccine: 50+ Ye ars (1 of 2 - PCV) 1977 Zoster Vaccines (1 of 2) 2008 RSV Immunization or 60+ Years (1 - Risk 60-74 years 1-dose series) 2018 Annual Medicare Wellness Visit 2023 COVID-19 Vaccine (1 - 2023-2 5 season) 2025 Meningococcal B Vaccine Aged Out No l onger eligible based on patient's age to complete this topic Meningococcal Vaccine Aged Out No nico sylvester eligible based on patient's age to complete this topic RSV Immunizations Under 20 Months Aged Out No longer eligible based on patient's age to complete this topic Insurance MEDICARE MEDICAID Care Teams Pacu Nurse Relationship Specialty Start Date End Date Alanna Edward MD PCP - General INTERNAL MEDICINE 08/23/18
--- OUTSIDE RECORDS SUMMARY | 2025-01-29 11:50 | XMS_ITS | Clinical Summary ---
Author Organization [facility] Address [address] [place] [address] Care Team Providers Care Motor And Generator Assembler Name Role Phone Alanna Edward MD Primary Care Provider Source Comments [facility],non-owned Affiliates and Associated Physician Practices is amultiple site organization consisting of ambulatory clinics and hospital sitesin [place], [place], [place] and [place]. This disclosure is being madepursuant to the Care Everywhere program and may not contain all information available regarding this patient. Last updated 18.[facility] Allergies No known active allergies Medications * [...] cholesterol 08/26/2010 Gout 08/26/2010 Overview (02/11/2015): Old [place] (myocardial infarction) 08/26/2010 Arthropathies 08/26/2010 Low back [...] on file Legal Sex Male 11:35 AM SALESPERSON FLOWERS Gender Identity Not on file Sexual Orientation Not on file Last Filed Vital Signs Vital Sign Reading Time Taken Comments Blood Pressure 118/70 06/16/2024 1:47 PM SALESPERSON FLOWERS Pulse 64 06/16/2024 1:47 PM SALESPERSON FLOWERS Temperature 36.3 C (97.3 F) 06/16/2024 1:47 PM SALESPERSON FLOWERS Respiratory Rate 17 06/16/2024 1:47 PM SALESPERSON FLOWERS Oxygen Saturation 94% 06/16/2024 1:47 PM SALESPERSON FLOWERS Inhaled Oxygen Concentration - - Weight 147.4 kg (325 lb) 06/16/2024 1:47 PM SALESPERSON FLOWERS Height 193 cm (6' 4) 06/16/2024 1:47 PM SALESPERSON FLOWERS Body Mass Index 39.56 06/16/2024 1:47 PM SALESPERSON FLOWERS Plan of Treatment Upcoming Encounters Date Type Department Care Team (Late st Contact Info) Description 06/15/2025 2:30 PM SALESPERSON FLOWERS Office Visit [facility] - Urology [address] [place] [id number] Varghese Yen MD [address] [place] [phone] Health Maintenance Due Date Last Done Comments [...] complete this topic Insurance MEDICAID - [place] [facility] MANAGED MEDICARE ADV MEDICARE Care Teams Motor And Generator Assembler Relationship Specialty Start Date End Date Alanna Edward MD [address] [place] [phone] PCP - General 06/07/21
--- OUTSIDE RECORDS SUMMARY | 2025-01-29 11:50 | XMS_ITS | Clinical Summary ---
Author Organization [place] [id number] Address [facility] [place] [address] Care Team Providers Care Drying Machine Operator Package Yarns Name Role Phone Alanna Edward MD Primary [...] (07/22/2021): Added automatically from request for surgery [id number] Essential hypertension 03/09/2021 Mixed hyperlipidemia 03/09/2021 Arthralgia [...] Sexual Orientation Straight 06/09/2020 6: 52 PM RESEARCH ATTORNEY Obstetrics History Last Filed Vital Signs Vital [...] 90 - 130 mL/min/1. 73 m2 [facility] Comment: Interpretive Data Reference Interval Normal >/= [...] CDT 08/12/2021 11:18 PM CDT Jany Short COMPUTER EDUCATION PROFESSOR LAB BLOOD ORDERABLES Fin al Result [facility] [place] [address] * (ABNORMAL) POCT hemoglobin A1c (07/28/2021 2:56 PM CDT) Hgb A1C, POC 5.9(H) 4.0 - 5.6 % [facility] Est Average Gluc POC 123 mg/dL [facility] Comment: The ADA recommends reporting an estimated Average Glucose (eAG) with all Hemoglobin A1c results using the equation derived from a study of 507 normal and diabetic adults. Minority populations were underrepresented and children were not included. (Diabetes Care 31:4506-8556, 2008). The eAG is not equivalent to a fasting glucose. Blood 07/28/2021 2:56 PM CDT 07/28/2021 2:56 PM CDT Jason Zuniga MD POINT OF CARE TEST ORDERABLES F inal Result [facility] [place] [address] from Last 3 Months or Most Recently Relevant to Health Maintenance Insurance IDPA [employer] MEDICARE ADVANTAGE MEDICARE [facility] IDPA [facility] MEDICARE ADVANTAGE Advance Directives For more information, please contact: [phone] * Full Code (Latest Code Status on File) Date Activated Date Inactivated Comments 08/11/2021 6:57 PM 08/15/2021 7:00 PM Care Teams Drying Machine Operator Package Yarns Relationship Specialty [place] [address] [place] [id number] PCP - General 12/04/16
[2025-01-29 12:26] LABS: Hematocrit 43.5 % (42.0-52.0); Hemoglobin 14.7 g/dL (14.0-18.0); Immature Granulocyte Percent A 0.2 % (0-0.5); Lymphocytes Absolute Auto 1.54 K/mm3 (0.9-3.2); Mean Corpuscular HGB Conc 33.8 g/dl (32-36); Mean Corpuscular Hemoglobin 32.4 pg (26-34); Mean Corpuscular Volume 95.8 fl (80-100); Nucleated Red Blood Cells Absolute Auto 0.000 K/mm3 (0.0-0.012); Nucleated Red Blood Cells Perc 0.0 % (0.0-0.2); Platelet Count Result 142 k/mm3 (150-375); Red Blood Count 4.54 M/mm3 (4.6-6.20); White Blood Count 6.2 K/mm3 (4.5-10.0)
[2025-01-29 12:39] LABS: INR 1.4; Partial Thromboplastin Time 34.1 Seconds (22.3-36.8); Prothrombin Time 16.7 Seconds (11.1-14.7)
[2025-01-29 12:40] LABS: Alanine Aminotransferase 42 U/L (6-50); Albumin Level 3.6 g/dL (3.5-5.1); Alkaline Phosphatase 91 U/L (38-126); Anion Gap 5 mmol/L (4-12); Aspartate Amino Transferase 32 U/L (17-59); Bilirubin,Total 0.8 mg/dL (0.2-1.3); Blood Urea Nitrogen 22 mg/dL (9-20); Calcium 8.4 mg/dL (8.4-10.2); Carbon Dioxide 25 mmol/L (22-30); Chloride 107 mmol/L (98-107); Estimated CRCL calculation 85 ml/min; Estimated Glomerular Filt Rate > 60; Glucose 87 mg/dL (65-110); Lipase 117 U/L (23-300); Potassium 4.1 mmol/L (3.4-5.0); Sodium 137 mmol/L (137-145); Total Protein 6.2 g/dL (6.3-8.2)
[2025-01-29 12:45] LABS: NT Pro B Type Natriuretic Pept 482 pg/mL (19.9-100)
[2025-01-29] MEDS: SODIUM CHLORIDE 0.9% IV 1,000 ML 999 ML IV CONT (15:53)
[2025-01-29 16:03] LABS: Add Urine Microscopic? NO; Appearance Urine Clear (Clear); Glucose Urine UA Negative (Negative); Leukocyte Esterase Ur Negative LEU/UL (Negative); Nitrate Urine Negative (Negative); Specific Grav Ur 1.035 (1.001-1.035)
== END 2025-01-29 18:36 | disposition home or self-care (01) ==
PROVIDERS: Emergency Provider Registered Nurse; PCP Internal Medicine Infectious Disease
DX: K40.90 Unilateral inguinal hernia, without obstruction or gangrene, not specified as recurrent (principal); K59.00 Constipation, unspecified; E86.0 Dehydration; I10 Essential (primary) hypertension; E11.9 Type 2 diabetes mellitus without complications; F41.9 Anxiety disorder, unspecified; F42.9 Obsessive-compulsive disorder, unspecified; Z98.84 Bariatric surgery status; Z87.891 Personal history of nicotine dependence; Z79.899 Other long term (current) drug therapy; Z79.01 Long term (current) use of anticoagulants; I48.91 Unspecified atrial fibrillation; I45.9 Conduction disorder, unspecified
CPT/HCPCS: 36415; 71046; 74177; 80053; 81003; 83690; 83880; 85025; 85610; 85730; 93005; 96360; 99284; J7030; Q9967